=== PATIENT | female | born 1965 | race African-American/Black ===

== ENCOUNTER → 2016-07-12 | Outpatient (CLI) | payer MEDICARE, OTHER ==
--- NOTE | 2016-07-12 17:57 | XR ---
EXAMINATION TYPE: XR elbow complete LT DATE OF EXAM: 07/12/2016 5:52 PM COMPARISON: NONE HISTORY: Elbow pain TECHNIQUE: 3 views FINDINGS: There is spurring on the coronoid process of the ulna. There is no sign of elbow joint effu kathrin. I see no fracture nor dislocation. There is mild spurring on the radial head. IMPRESSION: Mild hypertrophic osteoarthritis. No fracture seen.
--- NOTE | 2016-07-12 18:02 | XR ---
EXAMINATION TYPE: XR knee complete bilateral DATE OF EXAM: 07/12/2016 5:52 PM COMPARISON: NONE HISTORY: Knee pain TECHNIQUE: 6 views FINDINGS: There is bilateral narrowing of the medial joint spaces with spurring of the femoral and ti bial condyles. There is bilateral spurring at the patellofemoral joints and worse on the right side. There is no sign of joint effusion. IMPRESSION: Bilateral hypertrophic osteoarthritis and slightly worse on the right side. No fracture.
== END | disposition home or self-care (01) ==
LOC: RADXRMAIN 17:26
PROVIDERS: ATTEND Internal Medicine
DX: M19.022 Primary osteoarthritis, left elbow (principal); M17.0 Bilateral primary osteoarthritis of knee

== ENCOUNTER → 2016-11-20 | Outpatient (CLI) | payer MEDICARE, OTHER ==
[2016-11-20 14:05] LABS: Hepatitis B Surface Ag Index 0.06
[2016-11-20 14:23] LABS: Hepatitis C Virus IgG Ab Negative (Negative); Hepatitis C Virus IgG Index 0.05
--- NOTE | 2016-11-20 22:51 | WWHP ---
DATE OF SERVICE: 11/20/2016 CHIEF COMPLAINT: Patient is here for her routine gynecologic exam. HPI: This is a 51-year-old G4, P4 with an LMP of 10/23/2016. Periods have been somewhat irregular for the last 2 years. She had about 4 to 5. Last year and has had 2 periods so far this year. She is status post a tubal ligation. She states she is concerned because she had a recent sexual partner who was told he has hepatitis C. She was sexually active on 2 occasions and this was last week. She states that both times the condom either broke or fell off. She has had no other sexual encounters since her separation from her in 07/2016. Her sexual partner from last week was told he tested positive for hepatitis C when he tried to donate plasma recently. She denies any vaginal discharge or genital lesions. She is without gynecologic symptoms. She has been feeling down emotionally because of separation from her and now this possible exposure. She denies any suicidal ideation. PAST MEDICAL HISTORY: Arthritis, and chronic neck problems and anxiety. MEDICATIONS: 1. Xanax 1 mg p.r.n. 2. Percocet t.i.d. p.r.n. 3. Ambien q.h.s. p.r.n. 4. Zantac b.i.d. p.r.n. ALLERGIES: No known drug allergies. Past surgical, [facility], and family histories are unchanged from the 2016 H&P. SOCIAL HISTORY: She denies tobacco, alcohol, and drug use. She was since 2011 and this was her second marriage, but they have in 2017. She is currently not seeing anybody at this time. Please see HPI for additional details. She does not work outside the home. REVIEW OF SYSTEMS: She has gained about 18 pounds and this has been since early this year when she from her . She denies respiratory, cardiac, or GI problems. PHYSICAL EXAM: Blood pressure 118/84. Height 5 feet 8 inches. Weight 232 pounds. Temperature 97.7, pulse 82. This is a well-developed, heavyset black female who is alert and oriented x3 and in no acute distress. HEENT is within normal limits. NECK: Supple without mass or thyromegaly. CHEST AND LUNGS: Clear to auscultation. HEART: Regular rate and rhythm. Breasts are without mass or discharge. Axillary exam is negative for adenopathy. BACK: Negative for CVA tenderness. ABDOMEN: Soft, nontender, without palpable masses. PELVIC EXAM: Normal external genitalia. Cervix and vagina appear normal. There is no unusual discharge. There is no cervical motion tenderness. The uterus is multiparous, nongravid size and nontender. There are no palpable adnexal masses or tenderness. Rectovaginal exam is negative for mass or tenderness and is negative for occult blood. EXTREMITIES: Nontender. IMPRESSION: 1. A 51-year-old perimenopausal female with oligomenorrhea and normal gynecologic exam. 2. Contact with and suspected exposure to sexual partner with hepatitis C. PLAN: 1. Pap smear was performed. 2. Self-breast examination was discussed. 3. The patient will be due for a mammogram in 02/2017 and a slip was given to patient for this. 4. GC and Chlamydia testing from the cervix has been obtained. 5. STDs testing with blood work will be obtained including HIV, RPR, hepatitis B surface antigen and hepatitis C antibody. I have recommended that she repeat this testing in 6 months since it is possible that seroconversion has not occurred yet after exposure at this time. 6. STD prevention was discussed. I stressed the importance of limiting sexual partners and the use of condoms if she is to be sexually active. 7. We will contact dialysis social worker department to have someone contact her regarding her social issues to see if additional counseling would be helpful. 8. She will return in one year and p.r.n.
[2016-11-21 07:38] LABS: HIV-1/HIV-2 Ab Screen NONREAC (NON REAC)
== END | disposition home or self-care (01) ==
LOC: WWCWWP 11:41
PROVIDERS: ATTEND Obstetrics & Gynecology
DX: Z11.3 Encounter for screening for infections with a predominantly sexual mode of transmission (principal); Z20.5 Contact with and (suspected) exposure to viral hepatitis
CPT/HCPCS: 86780; 86803; 87340; 87389; 87491; 87591

== ENCOUNTER → 2017-02-24 | Outpatient (CLI) | payer MEDICARE, OTHER ==
--- NOTE | 2017-02-24 17:27 | XR ---
EXAMINATION TYPE: XR wrist complete RT DATE OF EXAM: 02/24/2017 COMPARISON: NONE HISTORY: Wrist pain TECHNIQUE: 4 views FINDINGS: I see no fracture nor dislocation. Carpal bones are intact. Metacarpals are intact. There i s some calcification at the radial styloid process probably due to old injury. IMPRESSION: No acute abnormality of the right wrist.
== END ==
LOC: RADXRMAIN 17:03
PROVIDERS: ATTEND Internal Medicine
DX: M25.531 Pain in right wrist (principal)

== ENCOUNTER 2017-06-12 08:33 | Emergency (ER) | payer MEDICARE, OTHER ==
[2017-06-12 08:39] VITALS: RESP 16; TEMP 97.1
--- NOTE | 2017-06-12 08:52 | ED ---
General Adult HPI - General Chief complaint: Urogenital Stated complaint: Female Time Seen by Provider: 06/12/17 08:48 Source: patient, RN notes reviewed Mode of arrival: ambulatory Limitations: no limitations - History of Present Illness Initial comments: Patient 52-year-old female who presents emergency room today with a chief complaint of a possible urinary tract infection. Patient does admit that she has noticed some increased frequency and burning sensation on urination over the last 2 days. Does note some pressure over the bladder at times. States his symptoms are consistent with urinary tract infections that she's had in the past. She denies any other complaints or associated symptoms. Patient denies any recent fever, chills, shortness of breath, chest pain, back pain, abdominal pain, nausea or vomiting, numbness or tingling, dysuria or hematuria, headaches or visual changes, or any other complaints. - Related Data Home Medications Medication Instructions Recorded Confirmed Cranberry Fruit Concentrate [Azo 250 mg PO TID 06/12/17 06/12/17 Cranberry] Cranberry Fruit Extract [Cranberry] 200 mg PO DAILY 06/12/17 06/12/17 Ibuprofen [Motrin] 400 mg PO Q6HR PRN 06/12/17 06/12/17 Previous Rx's Medication Instructions Recorded Nitrofurantoin Monohyd/M-Cryst 100 mg PO Q12HR #14 cap 06/12/17 [Macrobid] Phenazopyridine [Pyridium] 100 mg PO TID 3 Days day 06/12/17 Allergies Allergy/AdvReac Type Severity Reaction Status Date / Time No Known Allergies Allergy Verified 06/12/17 08:58 Review of Systems ROS Statement: Those systems with pertinent positive or pertinent negative responses have been documented in the HPI. ROS Other: All systems not noted in ROS Statement are negative. Past Medical History Past Medical History: Chest Pain / Angina, GERD/Reflux, Osteoarthritis (OA) Additional Past Medical History / Comment(s): anxiety restless leg syndrome, STRESS TEST 12-12-14(WNL) History of Any Multi-Drug Resistant Organisms: None Reported Past Surgical History: Appendectomy, Cholecystectomy, Tubal Ligation Past Anesthesia/Blood Transfusion Reactions: No Reported Reaction Past Psychological History: Anxiety Smoking Status: Never smoker Past Alcohol Use History: None Reported Past Drug Use History: None Reported - Past Family History Father Family Medical History: Diabetes Mellitus Additional Family Medical History / Comment(s): HEART DISEASE Mother Family Medical History: Myocardial Infarction ([place]) Additional Family Medical History / Comment(s): FROM [place] AT AGE 45 General Exam - General Exam Comments Initial Comments: General: The patient is awake and alert, in no distress, and does not appear acutely ill. Eye: Pupils are equal, round and reactive to light, extra-ocular movements are intact. No nystagmus. There is normal conjunctiva bilaterally. No signs of icterus. Ears, nose, mouth and throat: There are moist mucous membranes and no oral lesions. Neck: The neck is supple, there is no tenderness or JVD. Cardiovascular: There is a regular rate and rhythm. No murmur, rub or gallop is appreciated. Respiratory: Lungs are clear to auscultation, respirations are non-labored, breath sounds are equal. No wheezes, stridor, rales, or rhonchi. Musculoskeletal: Normal ROM, no tenderness. Strength 5/5. Sensation intact. Pulses equal bilaterally 2+. Neurological: A&O x 3. CN II-XII intact, There are no obvious motor or sensory deficits. Coordination appears grossly intact. Speech is normal. Skin: Skin is warm and dry and no rashes or lesions are noted. Psychiatric: Cooperative, appropriate mood & affect, normal judgment. Limitations: no limitations Course Vital Signs 06/12/17 08:35 Temperature 97.1 F L Pulse Rate 69 Respiratory 16 Rate Blood Pressure 137/77 O2 Sat by Pulse 98 Oximetry Medical Decision Making - Medical Decision Making Patient's urinalysis review does show evidence for urinary tract infection. Given dose of Rocephin here in emergency room. Culture pending. Patient was continued on antibiotics and Pyridium for symptoms. Advised return if there is any fever or chills or increased worsening of symptoms. - Lab Data Lab Results 06/12/17 Range/Units 08:40 Urine Color Dark Yellow Urine Appearance Cloudy H (Clear) Urine pH 5.5 (5.0-8.0) Ur Specific [place] 1.021 (1.001-1.035) Urine Protein Trace H (Negative) Urine Glucose (UA) Trace H (Negative) Urine Ketones Negative (Negative) Urine Blood Negative (Negative) Urine Nitrite Positive H (Negative) Urine Bilirubin Negative (Negative) Urine Urobilinogen <2.0 (<2.0) mg/dL Ur Leukocyte Esterase Moderate H (Negative) Urine WBC 39 H (0-5) /hpf Ur Squamous Epith Cells 1 (0-4) /hpf Urine Bacteria Occasional H (None) /hpf Urine Mucus Rare H (None) /hpf Disposition Clinical Impression: UTI (urinary tract infection) Disposition: HOME SELF-CARE Condition: Good Instructions: Urinary Tract Infection in Women (ED) Additional Instructions: Please use medication as discussed. Please follow-up with family doctor in the next 2 days of symptoms have not improved. Please return to emergency room if the symptoms increase or worsen or for any other concerns. Prescriptions: Nitrofurantoin Monohyd/M-Cryst [Macrobid] 100 mg PO Q12HR #14 cap Phenazopyridine [Pyridium] 100 mg PO TID 3 Days day Referrals: Stewart Beckman MD [Primary Care Provider] - 1-2 days Time of Disposition: 09:47
[2017-06-12 09:23] LABS: Appearance,Urine Cloudy (Clear); Bacteria,Urine Occasional /hpf; Bilirubin,Urine Negative (Negative); Glucose,Urine (UA) Trace (Negative); Ketones,Urine Negative (Negative); Leukocyte Esterase,Urine Moderate (Negative); Mucus,Urine Rare /hpf; Nitrite,Urine Positive (Negative); PH, Urine 5.5 (5.0-8.0); Particle Count 29457; Protein,Urine Trace (Negative); Specific Gravity,Urine 1.021 (1.001-1.035); Squamous Epithelial Cell,Urine 1 /hpf (0-4); UA Billing (MACRO vs. MICRO) MICRO; Urobilinogen,Urine <2.0 mg/dL (<2.0); WBC,Urine 39 /hpf (0-5)
[2017-06-12] MEDS ORDERED: cefTRIAXone 1,000 MG VIAL (IM USE) IM STA (09:46)
[2017-06-12 10:11] VITALS: BP 142/84; PULSE 71
== END 2017-06-12 10:11 | disposition home or self-care (01) ==
LOC: EC 08:33
DX: N39.0 Urinary tract infection, site not specified (principal); Z79.899 Other long term (current) drug therapy
CPT/HCPCS: 81001; 87086; 99283; 96372; J0696; 87077; 87186

== ENCOUNTER 2017-07-13 20:42 | Emergency (ER) | payer MEDICARE, OTHER ==
[2017-07-13] MEDS ORDERED: KETOROLAC 30 MG/ML 1 ML VIAL IVP STA ×2 (22:07→23:17)
--- NOTE | 2017-07-13 22:11 | ED ---
Chest Pain HPI - General Chief Complaint: Chest Pain Stated Complaint: chest & leg pain/SOB Time Seen by Provider: 07/13/17 21:05 Source: patient, RN notes reviewed Mode of arrival: wheelchair Limitations: no limitations - History of Present Illness Initial Comments: This is a 52-year-old female with no personal history of heart disease with family history of heart disease who presents with complaints of midsternal chest pain sharp and feels like someone sitting on her chest also a racing heart of last 3 days. She denies a fevers chills nausea vomiting or sweats she does states she is under a lot of stress as her 60-year-old sister is on a heart transplant list. She also states she's had previous admissions for heart disease and has had an extensive workup which was negative thus far. She does believe she had a cardiac catheterization that was negative. Patient also states her restless leg syndrome has been taking it recently. MD Complaint: chest pain, other - Related Data Home Medications Medication Instructions Recorded Confirmed ALPRAZolam [Xanax] 1 mg PO DAILY PRN 07/13/17 07/13/17 oxyCODONE-APAP 10-325MG [Percocet 1 tab PO DAILY PRN 07/13/17 07/13/17 10-325 mg] Previous Rx's Medication Instructions Recorded ALPRAZolam [Xanax] 1 mg PO DAILY PRN #7 tab 07/13/17 Magnesium 200 mg PO DAILY #14 tablet 07/13/17 oxyCODONE-APAP 10-325MG [Percocet 1 tab PO Q6HR PRN #10 tab 07/13/17 10-325 mg] Allergies Allergy/AdvReac Type Severity Reaction Status Date / Time No Known Allergies Allergy Verified 07/13/17 22:21 Review of Systems ROS Statement: Those systems with pertinent positive or pertinent negative responses have been documented in the HPI. ROS Other: All systems not noted in ROS Statement are negative. EKG Findings - EKG Results: EKG: interpreted by VICKIE, sinus rhythm (Sinus rhythm rate 93. Interval 174 QRS duration 90 QT since QTC of 362/[address] configuration this is compared with EKG dated 04/10/16 showing no acute changes) Past Medical History Past Medical History: Chest Pain / Angina, GERD/Reflux, Osteoarthritis (OA) Additional Past Medical History / Comment(s): anxiety restless leg syndrome, STRESS TEST 6-29-15(WNL) History of Any Multi-Drug Resistant Organisms: None Reported Past Surgical History: Appendectomy, Cholecystectomy, Tubal Ligation Past Anesthesia/Blood Transfusion Reactions: No Reported Reaction Past Psychological History: Anxiety Smoking Status: Never smoker Past Alcohol Use History: None Reported Past Drug Use History: None Reported - Past Family History Father Family Medical History: Diabetes Mellitus Additional Family Medical History / Comment(s): HEART DISEASE Mother Family Medical History: Myocardial Infarction ([place]) Additional Family Medical History / Comment(s): FROM [place] AT AGE 45 General Exam - General Exam Comments Initial Comments: This a well-developed well-nourished awake alert oriented 3 female Limitations: no limitations General appearance: alert, anxious Head exam: Present: atraumatic, normocephalic, normal inspection Eye exam: Present: normal appearance, PERRL, EOMI. Absent: scleral icterus, conjunctival injection, periorbital swelling ENT exam: Present: normal exam, mucous membranes moist Neck exam: Present: normal inspection. Absent: tenderness, meningismus, lymphadenopathy Respiratory exam: Present: normal lung sounds bilaterally, chest wall tenderness (Reproducible tenderness palpation). Absent: respiratory distress, wheezes, rales, rhonchi, stridor Cardiovascular Exam: Present: regular rate, normal rhythm, normal heart sounds. Absent: systolic murmur, diastolic murmur, rubs, gallop, clicks GI/Abdominal exam: Present: soft, normal bowel sounds. Absent: distended, tenderness, guarding, rebound, rigid Extremities exam: Present: normal inspection, full ROM, normal capillary refill. Absent: tenderness, pedal edema, joint swelling, calf tenderness Back exam: Present: normal inspection Neurological exam: Present: alert, oriented X3, CN II-XII intact Psychiatric exam: Present: normal affect, normal mood Skin exam: Present: warm, dry, intact, normal color. Absent: rash Course Vital Signs 07/13/17 07/13/17 07/13/17 20:51 21:59 22:20 Temperature 97.7 F Pulse Rate 93 85 Pulse Rate [ 80 Ob Scrub Tech ] Respiratory 18 18 Rate Blood Pressure 165/78 137/74 O2 Sat by Pulse 94 L 98 Oximetry 07/13/17 23:15 Temperature Pulse Rate 84 Pulse Rate [ Ob Scrub Tech ] Respiratory 20 Rate Blood Pressure 115/57 O2 Sat by Pulse 97 Oximetry - Reevaluation(s) Reevaluation #1: 07/13/17 23:50 Patient did get some relief from the medication I'll she saw some pain. The pain is reproducible. Further managed patient been under increased due to separation from her she states did recently moved back to this area and does not have a local doctor. Chest Pain MDM - MDM I did review the imaging and reports no acute findings. I don't discussed with the patient regarding the findings patient's presentation is consistent with costochondritis and anxiety. I will write a short course prescription of her previous medications for her. She is a follow-up through her insurance company to find a doctor in the area she is return when necessary Disposition Clinical Impression: Chest wall syndrome, Costalchondritis, Anxiety, Hypomagnesemia Disposition: HOME SELF-CARE Condition: Good Instructions: Costochondritis (ED), Anxiety (ED), Hypomagnesemia (ED) Prescriptions: ALPRAZolam [Xanax] 1 mg PO DAILY PRN #7 tab PRN Reason: Anxiety Magnesium 200 mg PO DAILY #14 tablet oxyCODONE-APAP 10-325MG [Percocet 10-325 mg] 1 tab PO Q6HR PRN #10 tab PRN Reason: Pain Referrals: None,Stated [Primary Care Provider] - 1-2 days Nayeli Tanner MD [STAFF PHYSICIAN] - 1-2 days
[2017-07-13 22:21] LABS: Basophils % (A) 1 %; Eosinophils # (A) 0.1 k/uL (0-0.7); Eosinophils % (A) 2 %; HCT 39.8 % (34.0-46.0); HGB 12.7 gm/dL (11.4-16.0); Lymphocytes # (A) 2.8 k/uL (1.0-4.8); Lymphocytes % (A) 49 %; MCH 27.3 pg (25.0-35.0); MCHC 31.8 g/dL (31.0-37.0); MCV 85.9 fL (80.0-100.0); Mean Platelet Volume 7.8; Monocytes # (A) 0.5 k/uL (0-1.0); Monocytes % (A) 8 %; Neutrophils # (A) 2.2 k/uL (1.3-7.7); Neutrophils % (A) 38 %; Platelet Count 276 k/uL (150-450); RBC 4.64 m/uL (3.80-5.40); RDW 13.4 % (11.5-15.5); WBC 5.8 k/uL (3.8-10.6)
[2017-07-13 22:31] LABS: D-Dimer 0.32 mg/L FEU (<0.60)
[2017-07-13 22:35] LABS: Partial Thromboplastin Time 23.8 sec (22.0-30.0); Prothrombin Time 9.8 sec (9.0-12.0)
[2017-07-13 22:38] LABS: ALT 22 U/L (9-52); AST 19 U/L (14-36); Albumin 4.1 g/dL (3.5-5.0); Alkaline Phosphatase 80 U/L (38-126); Anion Gap 11 mmol/L; Blood Urea Nitrogen 20 mg/dL (7-17); Calcium 10.1 mg/dL (8.4-10.2); Carbon Dioxide 24 mmol/L (22-30); Chloride 106 mmol/L (98-107); Creatine Kinase 317 U/L (30-135); Glucose 189 mg/dL (74-99); Magnesium 1.5 mg/dL (1.6-2.3); Sodium 141 mmol/L (137-145); Total Bilirubin 0.1 mg/dL (0.2-1.3); Total Protein 7.2 g/dL (6.3-8.2)
--- NOTE | 2017-07-13 22:43 | XR ---
EXAMINATION TYPE: XR chest 2V DATE OF EXAM: 07/13/2017 COMPARISON: 04/09/2016 HISTORY: Chest pain TECHNIQUE: Frontal and lateral views of the chest are obtained. FINDINGS: There is some patchy linear density in the mid and lower lung gonzalez. Heart and mediastinu m are within normal limits. There is no sign of pleural effusion. Bony thorax is intact. IMPRESSION: There is chronic linear density in the lower lung gonzalez consistent with scarring and at electasis without change compared to old exam.
[2017-07-13 22:49] LABS: Creatine Kinase MB 0.7 ng/mL (0.0-2.4); Troponin I <0.012 ng/mL (0.000-0.034)
[2017-07-14 00:17] VITALS: BP 118/60; PULSE 88; RESP 18; TEMP 97.1
== END 2017-07-14 00:17 | disposition home or self-care (01) ==
LOC: EC 20:42
DX: M94.0 Chondrocostal junction syndrome [Tietze] (principal); E83.42 Hypomagnesemia; F41.9 Anxiety disorder, unspecified; G25.81 Restless legs syndrome; Z82.49 Family history of ischemic heart disease and other diseases of the circulatory system
CPT/HCPCS: 36415; 93005; 85379; 83880; 80053; 82550; 82553; 83735; 84484; 85025; 85610; 85730; 71046; 99285; 96374; 96376; J1885

== ENCOUNTER 2017-09-29 09:05 | Emergency (ER) | payer MEDICARE, OTHER ==
[2017-09-29 09:13] VITALS: RESP 18; TEMP 97.6
[2017-09-29] MEDS ORDERED: SODIUM CHLORIDE 0.9% 1,000 ML IV STA (09:29)
[2017-09-29] MEDS ORDERED: methylPREDNISolone SOD SUCCI 125 MG/2 ML VIAL IV STA (09:29)
[2017-09-29] MEDS ORDERED: IPRATROPIUM-ALBUTEROL 3 ML NEB INHALATION STA (09:29)
--- NOTE | 2017-09-29 09:31 | ED ---
URI HPI - General Chief Complaint: Upper Respiratory Infection Stated Complaint: Cough Time Seen by Provider: 09/29/17 09:22 Source: patient, RN notes reviewed, old records reviewed Mode of arrival: ambulatory Limitations: no limitations - History of Present Illness Initial Comments: Patient is a 52-year-old [employer] chief complaint of cough and upper respiratory congestion for 1 month. She reports that she's had a dry cough for the past week. She also complains of some chest pain. Not reproducible palpation. She reports that she has a family history of heart disease but no specific history for herself. Patient states that she has no nausea or vomiting or diaphoresis. She reports that she has a sore throat related to her coughing.Patient denies any recent fever, chills, shortness of breath, chest pain, back pain, abdominal pain, nausea vomiting, numbness or tingling, dysuria or hematuria, constipation or diarrhea, headaches or visual changes, or any other current symptoms - Related Data Home Medications Medication Instructions Recorded Confirmed Ranitidine HCl [Zantac] 75 mg PO BID 09/29/17 09/29/17 guaiFENesin SYRUP 100MG/5ML 200 mg PO Q6H PRN 09/29/17 09/29/17 [Robitussin] Previous Rx's Medication Instructions Recorded Albuterol Inhaler [Ventolin Hfa 1 - 2 puff INHALATION Q6HR PRN #1 09/29/17 Inhaler] inhaler Azithromycin 250 mg PO DAILY #6 tablet 09/29/17 predniSONE 50 mg PO DAILY #5 tablet 09/29/17 Allergies Allergy/AdvReac Type Severity Reaction Status Date / Time No Known Allergies Allergy Verified 09/29/17 09:23 Review of Systems ROS Statement: Those systems with pertinent positive or pertinent negative responses have been documented in the HPI. ROS Other: All systems not noted in ROS Statement are negative. Past Medical History Past Medical History: Chest Pain / Angina, GERD/Reflux, Osteoarthritis (OA) Additional Past Medical History / Comment(s): anxiety restless leg syndrome, STRESS TEST 12-12-14(WNL) History of Any Multi-Drug Resistant Organisms: None Reported Past Surgical History: Appendectomy, Cholecystectomy, Tubal Ligation Past Anesthesia/Blood Transfusion Reactions: No Reported Reaction Past Psychological History: Anxiety Smoking Status: Never smoker Past Alcohol Use History: None Reported Past Drug Use History: None Reported - Past Family History Father Family Medical History: Diabetes Mellitus Additional Family Medical History / Comment(s): HEART DISEASE Mother Family Medical History: Myocardial Infarction ([place]) Additional Family Medical History / Comment(s): FROM [place] AT AGE 45 General Exam - General Exam Comments Initial Comments: 52-year-old female. Alert and oriented. No distress. Limitations: no limitations General appearance: alert, in no apparent distress Head exam: Present: atraumatic, normocephalic, normal inspection Eye exam: Present: normal appearance, PERRL, EOMI. Absent: scleral icterus, conjunctival injection, periorbital swelling ENT exam: Present: normal exam, mucous membranes moist Neck exam: Present: normal inspection. Absent: tenderness, meningismus, lymphadenopathy Respiratory exam: Present: normal lung sounds bilaterally, other (dry cough). Absent: respiratory distress, wheezes, rales, rhonchi, stridor Cardiovascular Exam: Present: regular rate, normal rhythm, normal heart sounds. Absent: systolic murmur, diastolic murmur, rubs, gallop, clicks Back exam: Present: normal inspection Neurological exam: Present: alert, oriented X3, CN II-XII intact Psychiatric exam: Present: normal affect, normal mood Course Vital Signs 09/29/17 09/29/17 09/29/17 09:11 09:45 09:55 Temperature 97.6 F Pulse Rate 76 70 70 Respiratory 18 18 Rate Blood Pressure 134/88 O2 Sat by Pulse 98 Oximetry 09/29/17 11:52 Temperature 97.6 F Pulse Rate 68 Respiratory 18 Rate Blood Pressure 140/80 O2 Sat by Pulse 97 Oximetry Medical Decision Making - Medical Decision Making Patient is a 52-year-old [employer] chief complaint of cough and upper respiratory congestion for 1 month. She reports that she's had a dry cough for the past week. She also complains of some chest pain. Not reproducible palpation. She reports that she has a family history of heart disease but no specific history for herself. Patient states that she has no nausea or vomiting or diaphoresis. She reports that she has a sore throat related to her coughing. Patient was given IV fluids and labs obtaiend. She has a dry cough, minor wheezing noted. Given breathing treatment and cardiac work up. EKG is normal, no acute changes. Negative troponin. Vitals are stable. CXR was within normal limitis. She feels better after treatment. Given IV solumedrol. Will treat patient for bronchitis with steriods, azithromycin, and inhaler. Dsicussed PCP follow up. - Lab Data Result diagrams: 09/29/17 10:12 09/29/17 10:12 Lab Results 09/29/17 09/29/17 09/29/17 Range/Units 10:12 10:12 10:12 WBC 8.1 (3.8-10.6) k/uL RBC 4.88 (3.80-5.40) m/uL Hgb 13.0 (11.4-16.0) gm/dL Hct 40.3 (34.0-46.0) % MCV 82.7 (80.0-100.0) fL MCH 26.7 (25.0-35.0) pg MCHC 32.2 (31.0-37.0) g/dL RDW 14.1 (11.5-15.5) % Plt Count 367 (150-450) k/uL Neutrophils % 47 % Lymphocytes % 42 % Monocytes % 6 % Eosinophils % 2 % Basophils % 0 % Neutrophils # 3.8 (1.3-7.7) k/uL Lymphocytes # 3.4 (1.0-4.8) k/uL Monocytes # 0.5 (0-1.0) k/uL Eosinophils # 0.2 (0-0.7) k/uL Basophils # 0.0 (0-0.2) k/uL PT (9.0-12.0) sec INR (<1.2) APTT (22.0-30.0) sec Sodium 145 (137-145) mmol/L Potassium 3.7 (3.5-5.1) mmol/L Chloride 106 (98-107) mmol/L Carbon Dioxide 22 (22-30) mmol/L Anion Gap 17 mmol/L BUN 17 (7-17) mg/dL Creatinine 1.00 (0.52-1.04) mg/dL Est GFR (CKD-EPI)AfAm 74 (>60 ml/min/1.73 sqM) Est GFR (CKD-EPI)NonAf 64 (>60 ml/min/1.73 sqM) Glucose 136 H (74-99) mg/dL Calcium 9.8 (8.4-10.2) mg/dL Magnesium 1.7 (1.6-2.3) mg/dL Total Bilirubin 0.3 (0.2-1.3) mg/dL AST 17 (14-36) U/L ALT 28 (9-52) U/L Alkaline Phosphatase 90 (38-126) U/L Total Creatine Kinase 289 H (30-135) U/L CK-MB (CK-2) 0.7 (0.0-2.4) ng/mL CK-MB (CK-2) Rel Index 0.2 Troponin I <0.012 (0.000-0.034) ng/mL Total Protein 7.9 (6.3-8.2) g/dL Albumin 4.3 (3.5-5.0) g/dL Urine Color Urine Appearance (Clear) Urine pH (5.0-8.0) Ur Specific Clubb (1.001-1.035) Urine Protein (Negative) Urine Glucose (UA) (Negative) Urine Ketones (Negative) Urine Blood (Negative) Urine Nitrite (Negative) Urine Bilirubin (Negative) Urine Urobilinogen (<2.0) mg/dL Ur Leukocyte Esterase (Negative) 09/29/17 09/29/17 Range/Units 10:12 10:17 WBC (3.8-10.6) k/uL RBC (3.80-5.40) m/uL Hgb (11.4-16.0) gm/dL Hct (34.0-46.0) % MCV (80.0-100.0) fL MCH (25.0-35.0) pg MCHC (31.0-37.0) g/dL RDW (11.5-15.5) % Plt Count (150-450) k/uL Neutrophils % % Lymphocytes % % Monocytes % % Eosinophils % % Basophils % % Neutrophils # (1.3-7.7) k/uL Lymphocytes # (1.0-4.8) k/uL Monocytes # (0-1.0) k/uL Eosinophils # (0-0.7) k/uL Basophils # (0-0.2) k/uL PT 10.3 (9.0-12.0) sec INR 1.0 (<1.2) APTT 24.0 (22.0-30.0) sec Sodium (137-145) mmol/L Potassium (3.5-5.1) mmol/L Chloride (98-107) mmol/L Carbon Dioxide (22-30) mmol/L Anion Gap mmol/L BUN (7-17) mg/dL Creatinine (0.52-1.04) mg/dL Est GFR (CKD-EPI)AfAm (>60 ml/min/1.73 sqM) Est GFR (CKD-EPI)NonAf (>60 ml/min/1.73 sqM) Glucose (74-99) mg/dL Calcium (8.4-10.2) mg/dL Magnesium (1.6-2.3) mg/dL Total Bilirubin (0.2-1.3) mg/dL AST (14-36) U/L ALT (9-52) U/L Alkaline Phosphatase (38-126) U/L Total Creatine Kinase (30-135) U/L CK-MB (CK-2) (0.0-2.4) ng/mL CK-MB (CK-2) Rel Index Troponin I (0.000-0.034) ng/mL Total Protein (6.3-8.2) g/dL Albumin (3.5-5.0) g/dL Urine Color Yellow Urine Appearance Clear (Clear) Urine pH 5.5 (5.0-8.0) Ur Specific Clubb 1.017 (1.001-1.035) Urine Protein Negative (Negative) Urine Glucose (UA) Negative (Negative) Urine Ketones Negative (Negative) Urine Blood Negative (Negative) Urine Nitrite Negative (Negative) Urine Bilirubin Negative (Negative) Urine Urobilinogen <2.0 (<2.0) mg/dL Ur Leukocyte Esterase Negative (Negative) 09/29/17 10:24 EKG performed today shows normal sinus rhythm, normal EKG noted. Ventricular rate of 60 bpm. UT interval 164 ms. QRS duration 96 ms. QT QTc is 09/19/2005/ 431 ms. No evidence of ST elevation or T-wave inversion. Nodes of atrial or ventricular arrhythmias. EKG shows no significant changes from EKG on 2017. - Radiology Data Radiology results: report reviewed Stable bands of scarring and atelectasis. No acute changes noted. Disposition Clinical Impression: Bronchitis Disposition: HOME SELF-CARE Condition: Good Instructions: Upper Respiratory Infection (ED) Prescriptions: Albuterol Inhaler [Ventolin Hfa Inhaler] 1 - 2 puff INHALATION Q6HR PRN #1 inhaler PRN Reason: Shortness Of Breath Azithromycin 250 mg PO DAILY #6 tablet predniSONE 50 mg PO DAILY #5 tablet Is patient prescribed a controlled substance at discharge?: No If prescribed controlled substance>3 days was MAPS reviewed?: No When asked, does pt state using other controlled substances?: No Referrals: Nayeli Tanner MD [Primary Care Provider] - 1-2 days Time of Disposition: 10:43
[2017-09-29 10:34] LABS: Appearance,Urine Clear (Clear); Bilirubin,Urine Negative (Negative); Blood,Urine Negative (Negative); Color,Urine Yellow; Glucose,Urine (UA) Negative (Negative); Ketones,Urine Negative (Negative); Leukocyte Esterase,Urine Negative (Negative); Nitrite,Urine Negative (Negative); PH, Urine 5.5 (5.0-8.0); Protein,Urine Negative (Negative); Specific Gravity,Urine 1.017 (1.001-1.035); Urobilinogen,Urine <2.0 mg/dL (<2.0)
[2017-09-29 10:34] LABS: Basophils % (A) 0 %; Eosinophils # (A) 0.2 k/uL (0-0.7); Eosinophils % (A) 2 %; HCT 40.3 % (34.0-46.0); Lymphocytes # (A) 3.4 k/uL (1.0-4.8); Lymphocytes % (A) 42 %; MCH 26.7 pg (25.0-35.0); MCHC 32.2 g/dL (31.0-37.0); MCV 82.7 fL (80.0-100.0); Mean Platelet Volume 7.4; Monocytes # (A) 0.5 k/uL (0-1.0); Monocytes % (A) 6 %; Neutrophils # (A) 3.8 k/uL (1.3-7.7); Neutrophils % (A) 47 %; Platelet Count 367 k/uL (150-450); RBC 4.88 m/uL (3.80-5.40); RDW 14.1 % (11.5-15.5); WBC 8.1 k/uL (3.8-10.6)
[2017-09-29 10:35] LABS: Albumin 4.3 g/dL (3.5-5.0); Calcium 9.8 mg/dL (8.4-10.2); Magnesium 1.7 mg/dL (1.6-2.3); Potassium 3.7 mmol/L (3.5-5.1); Total Bilirubin 0.3 mg/dL (0.2-1.3); Total Protein 7.9 g/dL (6.3-8.2)
[2017-09-29 10:38] LABS: Prothrombin Time 10.3 sec (9.0-12.0)
[2017-09-29 10:53] LABS: Creatine Kinase 289 U/L (30-135)
--- NOTE | 2017-09-29 10:56 | XR ---
EXAMINATION TYPE: XR chest 2V DATE OF EXAM: 09/29/2017 COMPARISON: 07/13/2017 HISTORY: 52-year-old female difficulty breathing TECHNIQUE: PA and lateral views FINDINGS: Heart normal size. Mild elongation thoracic aorta. Similar strands of opacity in the lower lungs. Mil d interstitial prominence unchanged. Cholecystectomy clips. No consolidation or pleural effusion. IMPRESSION: 1. Stable bands of scar in the lower lungs. 2. Chronic changes without acute cardiopulmonary process.
[2017-09-29 11:06] LABS: Creatine Kinase MB 0.7 ng/mL (0.0-2.4); Troponin I <0.012 ng/mL (0.000-0.034)
[2017-09-29 11:53] VITALS: BP 140/80; PULSE 68
== END 2017-09-29 11:53 | disposition home or self-care (01) ==
LOC: EC 09:05
DX: J40 Bronchitis, not specified as acute or chronic (principal); J98.11 Atelectasis; R91.8 Other nonspecific abnormal finding of lung field; J02.9 Acute pharyngitis, unspecified; K21.9 Gastro-esophageal reflux disease without esophagitis; Z79.899 Other long term (current) drug therapy; Z82.49 Family history of ischemic heart disease and other diseases of the circulatory system
CPT/HCPCS: 36415; 94640; 93005; 80053; 82550; 82553; 83735; 84484; 85025; 85610; 85730; 81003; 87040; 71046; 99284; 96374; 96361; J2930

== ENCOUNTER 2017-10-08 08:56 | Emergency (ER) | payer MEDICARE, OTHER ==
[2017-10-08 09:07] VITALS: RESP 16
--- NOTE | 2017-10-08 09:28 | ED ---
Lower Extremity Injury HPI - General Chief Complaint: Extremity Injury, Lower Stated Complaint: LEFT LEG PAIN Time Seen by Provider: 10/08/17 09:13 Source: patient, RN notes reviewed Mode of arrival: wheelchair Limitations: no limitations - History of Present Illness Initial Comments: This is a 52-year-old female presents emergency Department with complaint of left eye pain. She states she woke up this pain. She states she prior to going to sleep and she denies any injury or trauma. she denies any leg swelling no back pain. she states the pain is only in her upper leg does not radiate anywhere else. patient denies any bowel bladder incontinence or retention. denies any leg swelling denies any discoloration. patient has no paresthesias. patient has not taken any tylenol motrin for pain. patient states she's never had any like this in the past. - Related Data Home Medications Medication Instructions Recorded Confirmed Ranitidine HCl [Zantac] 75 mg PO BID 09/29/17 10/08/17 Previous Rx's Medication Instructions Recorded Ibuprofen [Motrin] 600 mg PO Q8HR PRN #30 tab 10/08/17 Allergies Allergy/AdvReac Type Severity Reaction Status Date / Time No Known Allergies Allergy Verified 10/08/17 09:54 Review of Systems ROS Statement: Those systems with pertinent positive or pertinent negative responses have been documented in the HPI. ROS Other: All systems not noted in ROS Statement are negative. Past Medical History Past Medical History: Chest Pain / Angina, GERD/Reflux, Osteoarthritis (OA) Additional Past Medical History / Comment(s): anxiety restless leg syndrome, STRESS TEST 12-12-14(WNL) History of Any Multi-Drug Resistant Organisms: None Reported Past Surgical History: Appendectomy, Cholecystectomy, Tubal Ligation Past Anesthesia/Blood Transfusion Reactions: No Reported Reaction Past Psychological History: Anxiety, Depression Smoking Status: Never smoker Past Alcohol Use History: None Reported Past Drug Use History: None Reported - Past Family History Father Family Medical History: Diabetes Mellitus Additional Family Medical History / Comment(s): HEART DISEASE Mother Family Medical History: Myocardial Infarction ([place]) Additional Family Medical History / Comment(s): FROM [place] AT AGE 45 General Exam Limitations: no limitations General appearance: alert, in no apparent distress Head exam: Present: atraumatic, normocephalic, normal inspection Respiratory exam: Present: normal lung sounds bilaterally. Absent: respiratory distress, wheezes, rales, rhonchi, stridor Cardiovascular Exam: Present: regular rate, normal rhythm, normal heart sounds. Absent: systolic murmur, diastolic murmur, rubs, gallop, clicks Extremities exam: Present: other (Left thigh there is mild tenderness with palpation leg is neurovascularly intact with equal pedal pulses there is equal temperature of both legs, there is no pain in the leg or groin, there is no tenderness in both buttocks region) Back exam: Present: full ROM. Absent: tenderness, paraspinal tenderness, vertebral tenderness Neurological exam: Present: alert, oriented X3, CN II-XII intact, reflexes normal. Absent: motor sensory deficit Skin exam: Present: warm, dry, intact, normal color. Absent: rash Course Vital Signs 10/08/17 09:04 Temperature 97 F L Pulse Rate 83 Respiratory 16 Rate Blood Pressure 125/68 O2 Sat by Pulse 98 Oximetry Medical Decision Making - Medical Decision Making 52-year-old female presented to the ER for left leg pain. Patient had nontraumatic pain. Patient symptoms are slightly reproducible. Patient has no vascular issues he has pedal pulses equal bilaterally ultrasound was performed negative for DVT. X-ray shows arthritis of the left hip. Patient's pain is most likely related to a strain or muscle skeletal pain. Patient will be given ibuprofen and discharged. Disposition Clinical Impression: Leg strain Disposition: HOME SELF-CARE Condition: Stable Instructions: Leg Pain (ED) Additional Instructions: Please return to the Emergency Department if symptoms worsen or any other concerns. Prescriptions: Ibuprofen [Motrin] 600 mg PO Q8HR PRN #30 tab PRN Reason: Pain Is patient prescribed a controlled substance at d/c from ED?: No Referrals: Nayeli Tanner MD [Primary Care Provider] - 1-2 days Danish Foley MD [STAFF PHYSICIAN] - 1-2 days Time of Disposition: 10:49
--- NOTE | 2017-10-08 09:34 | XR ---
EXAMINATION TYPE: XR femur LT DATE OF EXAM: 10/08/2017 CLINICAL HISTORY: Pain TECHNIQUE: Two views of the left femur are obtained. COMPARISON: None FINDINGS: There is mild concentric narrowing of the hip joint with hypertrophic change along the mónica tabulum. Arthropathy of the knee joint with hypertrophic changes and narrowing of the joint space. Mo st marked findings involving the medial compartment. No acute fracture or dislocation. IMPRESSION: 1. Arthropathy with no definite acute fracture. Correlate for femoral acetabular impingement.
--- NOTE | 2017-10-08 10:42 | US ---
EXAMINATION TYPE: US venous doppler duplex LE LT DATE OF EXAM: 10/08/2017 10:37 AM COMPARISON: NONE CLINICAL HISTORY: Pain. Left leg pain x 1 day SIDE PERFORMED: Left TECHNIQUE: The lower extremity deep venous system is examined utilizing real time linear array sonog maxine with graded compression, doppler sonography and color-flow sonography. VESSELS IMAGED: External Iliac Vein (EIV) Common Femoral Vein Deep Femoral Vein Greater Saphenous Vein * Femoral Vein Popliteal Vein Small Saphenous Vein * Proximal Calf Veins (* superficial vessels) Difficult study due to patient body habitus Left Leg: Appears negative for DVT Grayscale, color doppler, spectral doppler imaging performed of the deep veins of the left lower extr emity. There is normal flow, compressibility, vascular waveforms. IMPRESSION: No sonographic evidence of deep venous thrombosis within the left lower extremity. Of no te the casing man describes a difficult examination due to patient body habitus.
[2017-10-08] MEDS ORDERED: KETOROLAC 60 MG/2 ML VIAL IM STA (10:51)
[2017-10-08 11:01] VITALS: BP 154/85; PULSE 68; TEMP 97.1
== END 2017-10-08 11:01 | disposition home or self-care (01) ==
LOC: EC 08:56
DX: S76.912A Strain of unspecified muscles, fascia and tendons at thigh level, left thigh, initial encounter (principal); M16.12 Unilateral primary osteoarthritis, left hip; K21.9 Gastro-esophageal reflux disease without esophagitis; Z79.899 Other long term (current) drug therapy
CPT/HCPCS: 73552; 93971; 99284; 96372; J1885

== ENCOUNTER 2017-11-02 09:52 | Observation (INO) | payer MEDICARE, OTHER ==
[2017-11-02] MEDS ORDERED: SODIUM CHLORIDE 0.9% 1,000 ML IV STA ×2 (10:13)
[2017-11-02] MEDS ORDERED: LORazepam 1 MG TAB PO STA (10:13)
--- NOTE | 2017-11-02 10:19 | ED ---
Chest Pain HPI <Power Carroll - Last Filed: 11/02/17 12:49> - General Source: patient, RN notes reviewed, old records reviewed Mode of arrival: wheelchair Limitations: no limitations <Angelina Ferris - Last Filed: 11/02/17 12:56> - General Chief Complaint: Chest Pain Stated Complaint: Chest Pain Time Seen by Provider: 11/02/17 10:01 - History of Present Illness Initial Comments: this patient's a 52-year-old female presents emergency department today chief complaint of chest pain and stress of breath for the past 2 days. Patient reports that she has been evaluated in the past and was told that her symptoms are related to anxiety. No history of high blood pressure diabetes. Nonsmoker. She also complains of leg pain. She states is worse at night. She states that she feels like she has been under increased stress due to her leg pain tonight and noncontributory anxiety. Patient states that it feels like she cannot sleep well at [place]'s has to move her legs. Denies any swelling or trauma to the legs. She did have a ultrasound completed one month ago for similar complaints of pain. That was negative for DVT. Patient states that she feels anxious. She reports she has felt nauseated and sweaty. (Angelina Ferris) - Related Data Home Medications Medication Instructions Recorded Confirmed Ranitidine HCl [Zantac] 75 mg PO BID 09/29/17 10/08/17 Previous Rx's Medication Instructions Recorded Ibuprofen [Motrin] 600 mg PO Q8HR PRN #30 tab 10/08/17 Allergies Allergy/AdvReac Type Severity Reaction Status Date / Time No Known Allergies Allergy Verified 11/02/17 09:56 Review of Systems ROS Other: All systems not noted in ROS Statement are negative. <Power Carroll - Last Filed: 11/02/17 12:49> ROS Other: All systems not noted in ROS Statement are negative. <Angelina Ferris - Last Filed: 11/02/17 12:56> ROS Statement: Those systems with pertinent positive or pertinent negative responses have been documented in the HPI. EKG Findings - EKG Comments: EKG Findings:: EKG performed at 1002 shows normal sinus rhythm, normal EKG. Ventricular rate of 75 beats were minute. IA interval is 160 ms. QRS duration 92 ms. QT QTc is 398/444 ms. No evidence of ST elevation or T-wave inversion. <Angelina Ferris - Last Filed: 11/02/17 12:56> Past Medical History Past Medical History: Chest Pain / Angina, GERD/Reflux, Osteoarthritis (OA) Additional Past Medical History / Comment(s): anxiety restless leg syndrome, STRESS TEST 629-15(WNL) History of Any Multi-Drug Resistant Organisms: None Reported Past Surgical History: Appendectomy, Cholecystectomy, Tubal Ligation Past Anesthesia/Blood Transfusion Reactions: No Reported Reaction Past Psychological History: Anxiety, Depression Smoking Status: Never smoker Past Alcohol Use History: None Reported Past Drug Use History: None Reported - Past Family History Father Family Medical History: Diabetes Mellitus Additional Family Medical History / Comment(s): HEART DISEASE Mother Family Medical History: Myocardial Infarction ([place]) Additional Family Medical History / Comment(s): FROM [place] AT AGE 45 <Angelina Ferris - Last Filed: 11/02/17 12:56> General Exam <Power Carroll - Last Filed: 11/02/17 12:49> Limitations: no limitations General appearance: alert Head exam: Present: atraumatic, normocephalic, normal inspection Eye exam: Present: normal appearance, PERRL, EOMI. Absent: scleral icterus, conjunctival injection, periorbital swelling ENT exam: Present: normal exam, mucous membranes moist Neck exam: Present: normal inspection. Absent: tenderness, meningismus, lymphadenopathy Respiratory exam: Present: normal lung sounds bilaterally. Absent: respiratory distress, wheezes, rales, rhonchi, stridor Cardiovascular Exam: Present: regular rate, normal rhythm, normal heart sounds. Absent: systolic murmur, diastolic murmur, rubs, gallop, clicks GI/Abdominal exam: Present: soft, normal bowel sounds. Absent: distended, tenderness, guarding, rebound, rigid Extremities exam: Present: normal inspection, full ROM, normal capillary refill , other (normal pulses and dorsalis pedis and posterior tibial. No swelling of the legs. Full range of motion noted.). Absent: tenderness, pedal edema, joint swelling, calf tenderness Back exam: Present: normal inspection Neurological exam: Present: alert, oriented X3, CN II-XII intact <Angelina Ferris - Last Filed: 11/02/17 12:56> - General Exam Comments Initial Comments: 52-year-old -[place] female. Patient is well-appearing. Alert and oriented. No acute distress. (Angelina Ferris) Course <Power Carroll - Last Filed: 11/02/17 12:49> <Angelina Ferris - Last Filed: 11/02/17 12:56> Vital Signs 11/02/17 11/02/17 09:54 11:00 Temperature 97.1 F L Pulse Rate 79 70 Respiratory 18 18 Rate Blood Pressure 141/78 134/72 O2 Sat by Pulse 99 97 Oximetry - Reevaluation(s) Reevaluation #1: 11/02/17 12:49 Patient reevaluated and resting comfortably in bed. Only mild discomfort at this time. Patient updated on results and plan. Patient states she does have a family history of both Brother with recent heart attack and sister with recent heart attack and heart problems. Case was discussed in detail with Dr. Ramos, who will admit for Dr. Tanner. (Power Carroll) Chest Pain MDM <Power Carroll - Last Filed: 11/02/17 12:49> <Angelina Ferris - Last Filed: 11/02/17 12:56> - MDM 52-year-old female presents with onset of chest pain shortness breath for 2 days. Also complains of leg pain. Patient's symptoms seem to be consistent with restless leg syndrome. Worse at night. Patient legs appear normal. Normal pulses no swelling. Normal sensation and range of motion. Patient be evaluated for chest pain. Her EKG was reviewed and normal. Patient does have a positive family history for heart attacks. Chest x-ray was reviewed and negative for any acute process. Basilar atelectasis noted. Discussed with Dr. Carroll, we will admit the patient for observation. Discussed with Dr. Li. ( Angelina Ferris) Disposition <Power Carroll - Last Filed: 11/02/17 12:49> Is patient prescribed a controlled substance at d/c from ED?: No If prescribed controlled substance>3 days was MAPS reviewed?: No When asked, does pt state using other controlled substances?: No Time of Disposition: 12:56 <Angelina Ferris - Last Filed: 11/02/17 12:56> Clinical Impression: Chest pain, Restless leg Disposition: ADMITTED IP TO THIS HOSP Condition: Good Instructions: Chest Pain (ED) Referrals: Nayeli Tanner MD [Primary Care Provider] - 1-2 days
[2017-11-02 10:35] LABS: Basophils % (A) 1 %; Eosinophils # (A) 0.2 k/uL (0-0.7); Eosinophils % (A) 3 %; HCT 38.5 % (34.0-46.0); HGB 12.3 gm/dL (11.4-16.0); Lymphocytes # (A) 2.6 k/uL (1.0-4.8); Lymphocytes % (A) 49 %; MCH 26.8 pg (25.0-35.0); MCHC 31.8 g/dL (31.0-37.0); MCV 84.2 fL (80.0-100.0); Mean Platelet Volume 7.6; Monocytes # (A) 0.3 k/uL (0-1.0); Monocytes % (A) 6 %; Neutrophils % (A) 39 %; Platelet Count 283 k/uL (150-450); RBC 4.57 m/uL (3.80-5.40); RDW 14.9 % (11.5-15.5); WBC 5.2 k/uL (3.8-10.6)
[2017-11-02 10:45] LABS: ALT 32 U/L (9-52); AST 19 U/L (14-36); Albumin 3.5 g/dL (3.5-5.0); Alkaline Phosphatase 53 U/L (38-126); Amylase 74 U/L (30-110); Anion Gap 10 mmol/L; Blood Urea Nitrogen 15 mg/dL (7-17); Calcium 8.9 mg/dL (8.4-10.2); Carbon Dioxide 24 mmol/L (22-30); Chloride 106 mmol/L (98-107); Glucose 135 mg/dL (74-99); Lipase 123 U/L (23-300); Magnesium 1.6 mg/dL (1.6-2.3); Potassium 3.8 mmol/L (3.5-5.1); Sodium 140 mmol/L (137-145); Total Bilirubin 0.2 mg/dL (0.2-1.3); Total Protein 5.9 g/dL (6.3-8.2)
[2017-11-02 10:53] LABS: D-Dimer 0.3 mg/L FEU (<0.60); Partial Thromboplastin Time 23.2 sec (22.0-30.0); Prothrombin Time 9.7 sec (9.0-12.0)
[2017-11-02 11:00] LABS: Creatine Kinase 215 U/L (30-135)
[2017-11-02 11:11] LABS: Creatine Kinase MB 0.6 ng/mL (0.0-2.4); Troponin I <0.012 ng/mL (0.000-0.034)
--- NOTE | 2017-11-02 11:18 | XR ---
EXAMINATION TYPE: XR chest 2V DATE OF EXAM: 11/02/2017 COMPARISON: Prior chest 09/29/2017 HISTORY: Chest pain and shortness of breath TECHNIQUE: Frontal and lateral views of the chest are obtained. FINDINGS: There is no pleural effusion or pneumothorax seen. The cardiac silhouette size is within normal limits. Bandlike foci of increased attenuation again noted at the lung bases likely represent scar or atelectasis. The osseous structures are intact. There are overlying cardiac leads. IMPRESSION: Basilar scarring or atelectasis.
[2017-11-02] MEDS ORDERED: ACETAMINOPHEN TAB 325 MG TAB PO PRN (12:56)
[2017-11-02] MEDS ORDERED: IBUPROFEN 400 MG TAB PO PRN (12:56)
[2017-11-02] MEDS ORDERED: NALOXONE 0.4 MG/ML 1 ML VIAL IV PRN (12:56)
[2017-11-02] MEDS ORDERED: GABAPENTIN 300 MG CAP PO STA (13:30)
[2017-11-02] MEDS ORDERED: ASPIRIN 325 MG TAB PO STA (13:34)
[2017-11-02] MEDS: SODIUM CHLORIDE 0.9% 1,000 ML IV SCH (14:12)
[2017-11-02] MEDS: GABAPENTIN 100 MG CAP PO SCH ×2 (16:38→20:57)
--- NOTE | 2017-11-02 18:01 | P.CNNES ---
History of Present Illness Consult date: 11/02/17 Requesting physician: Lincoln Ramos Reason for Consult: Restless leg syndrome History of Present Illness: Patient is a pleasant 52-year-old -[place]an female who is being evaluated by the neurology service today on 11/02/2017 per the request of Dr. Ramos for restless leg syndrome. Patient reports long history of restless leg syndrome as well as knee pain and chronic back pain. Patient states she was also having chest pain and shortness of breath over the past 2 days and decided to come to [facility] for further evaluation. Patient reports she does have significant history of anxiety and she thinks it may be anxiety related as well. Patient denies being diabetic. Patient states her only home medication is Zantac 75 mg twice daily. Vital signs on admission were temp 97.1 , pulse 79, respirations 18, blood pressure 141/78, O2 saturation 99% on room air. Labs on admission were essentially unremarkable except for elevated total creatinine kinase of 215. Cardiology's been consulted for chest pain. At the time of my evaluation, patient's resting comfortably in bed and appears to be in no acute distress. Review of Systems REVIEW OF SYSTEMS: Otherwise unremarkable and noncontributory. Past Medical History Past Medical History: Chest Pain / Angina, GERD/Reflux, Osteoarthritis (OA) Additional Past Medical History / Comment(s): anxiety restless leg syndrome, STRESS TEST 12-12-14(WNL) History of Any Multi-Drug Resistant Organisms: None Reported Past Surgical History: Appendectomy, Cholecystectomy, Tubal Ligation Past Anesthesia/Blood Transfusion Reactions: No Reported Reaction Past Psychological History: Anxiety, Depression Smoking Status: Never smoker Past Alcohol Use History: None Reported Past Drug Use History: None Reported - Past Family History Father Family Medical History: Diabetes Mellitus Additional Family Medical History / Comment(s): HEART DISEASE Mother Family Medical History: Myocardial Infarction ([place]) Additional Family Medical History / Comment(s): FROM [place] AT AGE 45 Medications and Allergies Home Medications Medication Instructions Recorded Confirmed Type Ibuprofen 800 mg PO TID PRN 11/02/17 11/02/17 History Ranitidine HCl [Zantac] 300 mg PO DAILY 11/02/17 11/02/17 History Allergies Allergy/AdvReac Type Severity Reaction Status Date / Time No Known Allergies Allergy Verified 11/02/17 14:36 Physical Examination - Vital Signs Vital Signs: Vital Signs Temp Pulse Pulse Resp BP BP Pulse Ox 11/02/17 16:00 97.6 F 67 18 113/63 98 11/02/17 13:23 97.4 F L 74 16 131/83 97 11/02/17 13:19 98.1 F 74 18 125/67 99 11/02/17 11:00 70 18 134/72 97 11/02/17 09:54 97.1 F L 79 18 141/78 99 Intake and Output 11/02/17 11/02/17 11/02/17 06:59 14:59 22:59 Other: Weight 112.4 kg PHYSICAL EXAM: GENERAL APPEARANCE: Patient is a well-developed, -[place] female who appears to be in no acute distress. HEENT: Normocephalic, atraumatic, no facial asymmetry is seen. Neck is supple with no masses felt. CARDIOVASCULAR: Regular rate and rhythm. ABDOMEN: Nontender, nondistended. EXTREMITIES: Show no edema or clubbing. NEUROLOGICAL EXAM: Patient is awake, alert, and oriented 3. Speech and language are normal. Strength is full in all 4 extremities. Sensory exam is normal to light touch in all 4 extremities. No facial asymmetry seen on cranial nerve testing. No tremors or seizure-like activity noted. Results - Laboratory Findings CBC and BMP: 11/02/17 10:20 11/02/17 10:20 Abnormal Lab Findings: Abnormal Labs 11/02/17 11/02/17 10:20 10:20 Glucose 135 H Total Creatine Kinase 215 H Total Protein 5.9 L Assessment and Plan Plan: Impression: 1. Restless leg syndrome 2. Chest pain 3. Chronic knee pain 4. GERD 5. Anxiety disorder 6. Osteoarthritis Recommendation: It does appear patient has symptoms consistent with restless leg syndrome. Patient reports she has been on Requip in the past and cannot remember whether it helped or not. Reviewing past notes, patient did report relief with Requip. Patient follows with orthopedics for chronic knee pain and is due to have an MRI later this month. I will start the patient on low-dose Requip daily at bedtime and this was explained to patient in detail that this medication needs to be titrated up slowly. I will order Zofran 4 mg by mouth when necessary for nausea. Patient is asking for medication for anxiety and for sleep. I explained once we get her leg pain under control this may help anxiety and help her sleep. Cardiology has been consulted for chest pain. Patient can have a further neurophysiological workup in the office setting as an outpatient. We can do NCS/EMG in the office. For now, Neurontin has been started and I agree. I will continue to follow with you. Further recommendations to follow. Thank you for allowing me to participate in the care of your patient. Feel free to call with any questions or concerns. I performed an examination of the patient and discussed the management with the OCCUPATIONAL REHABILITATION AIDE. I have reviewed the OCCUPATIONAL REHABILITATION AIDE notes and agree with the findings and plan of care.
--- NOTE | 2017-11-02 18:36 | P.HPIM ---
History of Present Illness H&P Date: 11/02/17 Chief Complaint: Chest pain this patient's a 52-year-old obese -Serbian female presents emergency department today chief complaint of chest pain and stress of breath for the past 2 days. Patient reported a dull achy substernal nonradiating 8/10 over the last 2 days also describes a pressure-like feeling in her chest, with associated shortness of breath, nausea and diaphoresis. Patient reports that she has been evaluated in the past and was told that her symptoms are related to anxiety. No history of high blood pressure diabetes. Nonsmoker. She reports a strong family history of heart disease reports her 49-year-old brother was diagnosed with an acute DC yesterday She also complains of leg pain , which at present is her major concern major complaint. She states is worse at night. She states that she feels like she has been under increased stress due to her leg pain tonight and noncontributory anxiety. Patient states that it feels like she cannot sleep well. Patient has been on Requip and Mirapex but both were discontinued secondary to ongoing nausea. The patient reports she had a stress test 2 years ago which was reportedly normal Denies any swelling or trauma to the legs. She did have a ultrasound completed one month ago for similar complaints of pain. That was negative for DVT. Patient states that she feels anxious. In the ER showed extensive workup initial EKG showed normal sinus rhythm no evidence of acute ischemia, cardiac troponins initially were negative as well. Chest x-ray showed basilar scarring or atelectasis. She was given a dose of Ativan without significant improvement of her symptoms Review of Systems All other 12 point review of systems negative except per HPI Past Medical History Past Medical History: Chest Pain / Angina, GERD/Reflux, Osteoarthritis (OA) Additional Past Medical History / Comment(s): anxiety restless leg syndrome, STRESS TEST 12-12-14(WNL) History of Any Multi-Drug Resistant Organisms: None Reported Past Surgical History: Appendectomy, Cholecystectomy, Tubal Ligation Past Anesthesia/Blood Transfusion Reactions: No Reported Reaction Past Psychological History: Anxiety, Depression Smoking Status: Never smoker Past Alcohol Use History: None Reported Past Drug Use History: None Reported - Past Family History Father Family Medical History: Diabetes Mellitus Additional Family Medical History / Comment(s): HEART DISEASE Mother Family Medical History: Myocardial Infarction ([place]) Additional Family Medical History / Comment(s): FROM [place] AT AGE 45 Medications and Allergies Home Medications Medication Instructions Recorded Confirmed Type Ibuprofen 800 mg PO TID PRN 11/02/17 11/02/17 History Ranitidine HCl [Zantac] 300 mg PO DAILY 11/02/17 11/02/17 History Allergies Allergy/AdvReac Type Severity Reaction Status Date / Time No Known Allergies Allergy Verified 11/02/17 14:36 Physical Exam Vitals: Vital Signs Temp Pulse Resp BP Pulse Ox 11/02/17 11:00 70 18 134/72 97 11/02/17 09:54 97.1 F L 79 18 141/78 99 Intake and Output 11/01/17 11/02/17 11/02/17 22:59 06:59 14:59 Other: Weight 104.326 kg Constitutional: No acute distress, conversant, pleasant Eyes: Anicteric sclerae, moist conjunctiva, no lid-lag, PERRLA ENMT: NC/AT,Oropharynx clear, no erythema, exudates Neck:Supple, FROM, no masses, or JVD, No carotid bruits; No thyromegaly Lungs: Clear to auscultation, Clear to percussion, Normal respiratory effort, no accessory muscle use Cardiovascular: Heart regular in rate and rhythm, No murmurs, gallops, or rubs no peripheral edema Abdominal: Soft Nontender, nom distended, no guarding, no rebound or rigidity, Normoactive bowel sounds No hepatomegaly, No splenomegaly, No palpable mass No abdominal wall hernia noted Skin: Normal temperature, tone, texture, turgor, No induration No subcutaneous nodules, No rash, lesions, No ulcers Extremities:No digital cyanosis No clubbing, Pedal pulses intact and symmetrical Radial pulses intact and symmetrical Normal gait and station, No calf tenderness Psychiatric: Alert and oriented to person, place and time, Appropriate affect Intact judgement Neuro: Muscles Strength 5/5 in all 4 extremities, Sensation to light touch grossly present throughout, Cranial nerves II-XII grossly intact. No focal sensory deficits Results CBC & Chem 7: 11/02/17 10:20 11/02/17 10:20 Labs: Abnormal Lab Results - Last 24 Hours (Table) 11/02/17 11/02/17 Range/Units 10:20 10:20 Glucose 135 H (74-99) mg/dL Total Creatine Kinase 215 H (30-135) U/L Total Protein 5.9 L (6.3-8.2) g/dL Assessment and Plan (1) Atypical chest pain Current Visit: Yes Status: Acute Code(s): R07.89 - OTHER CHEST PAIN SNOMED Code(s): 991720256 (2) Restless leg syndrome Current Visit: Yes Status: Acute Code(s): G25.81 - RESTLESS LEGS SYNDROME SNOMED Code(s): 53371194 (3) Anxiety Current Visit: No Status: Acute Code(s): F41.9 - ANXIETY DISORDER, UNSPECIFIED SNOMED Code(s): 70492074 Plan: Patient presenting with atypical chest pain with minimal cardiac risk factors being age and family history, initial EKG and cardiac enzymes negative for any suggestion of any acute ischemia, we'll continue to trend and cycle troponins. Start aspirin 325 mg by mouth daily, we'll workup her restless leg syndrome check TSH and vitamin B12 and folate magnesium. We'll start the patient on Neurontin and consult urology for further recommendations. We'll also consult cardiology. We'll continue to follow her clinical course and place the patient on DVT prophylaxis
[2017-11-02 19:25] LABS: Creatine Kinase 189 U/L (30-135)
[2017-11-02 19:36] LABS: Creatine Kinase MB 0.5 ng/mL (0.0-2.4); Troponin I <0.012 ng/mL (0.000-0.034)
[2017-11-02] MEDS: Acetaminophen-Codeine 300-30mg TAB PO PRN (20:58)
[2017-11-02 22:29] LABS: Creatine Kinase 164 U/L (30-135)
[2017-11-02 22:30] LABS: Cholesterol 200 mg/dL (<200); HDL Cholesterol 39 mg/dL (40-60); Triglycerides 475 mg/dL (<150)
[2017-11-02 22:40] LABS: Creatine Kinase MB 0.3 ng/mL (0.0-2.4); Troponin I <0.012 ng/mL (0.000-0.034)
[2017-11-03] MEDS: Acetaminophen-Codeine 300-30mg TAB PO PRN ×2 (00:27→13:32)
[2017-11-03] MEDS ORDERED: MAG HYDROX/AL HYDROX/SIMETH 30 ML CUP PO PRN (03:55)
[2017-11-03] MEDS ORDERED: MAG HYDROX/AL HYDROX/SIMETH 30 ML CUP ONE (04:00)
[2017-11-03] MEDS: ONDANSETRON 4 MG/2 ML VIAL IVP PRN ×2 (04:01→13:33)
[2017-11-03 07:38] VITALS: RESP 16
[2017-11-03] MEDS ORDERED: ASPIRIN 81 MG PO SCH (09:00)
[2017-11-03] MEDS ORDERED: ASPIRIN 325 MG TAB PO SCH (09:00)
[2017-11-03] MEDS ORDERED: REGADENOSON 0.4 MG/5 ML SYRINGE IV ONE (10:26)
[2017-11-03] MEDS ORDERED: AMINOPHYLLINE 500 MG/20 ML VIAL IV PRN (10:26)
--- NOTE | 2017-11-03 11:37 | P.CRDCN ---
History of Present Illness History of present illness: Mrs. Verde is a pleasant 52-year-old female past medical history significant for dyslipidemia, gastroesophageal reflux disease and anxiety. She denies personal history of coronary artery disease, hypertension and diabetes mellitus. She has significant family history with her mother in her 40s from heart disease, sister with heart disease in her 50s and her brother with recent heart attack in his early 50s. We've been asked to see her in consultation for chest pain. She states she woke up yesterday morning with pressure in mid-sternal region associated with shortness of breath, palpitations and nausea. These symptoms persisted for a couple hours until she came here and was given Maalox and Zofran which relieved her symptoms. She has had no further recurrence of chest pain since admission. She is also complaining of chronic leg pain which is been diagnosed with restless leg syndrome. Neurology is seeing her in consultation as well. EKG on arrival reveals sinus mechanism with no acute ST or T-wave abnormalities. Chest x-ray shows a scarring with no acute cardiopulmonary process. Laboratory data reviewed, hemoglobin 12.3, platelets 283, d-dimer 0.3, sodium 140, potassium 3.8, magnesium 1.6, creatinine 0.85, cardiac enzymes negative 3 , TSH 3.5, triglycerides 475, HDL 39, total cholesterol 200. His recent echocardiogram performed May 2016 revealed preserved left ventricular systolic function with ejection fraction 55-60%. She also underwent debridement stress echo at that time which was negative for stress- induced ischemia. Review of Systems At the time of my exam: CONSTITUTIONAL: Denies fever. Denies chills. EYES: Denies blurred vision. Denies vision changes. Denies eye pain. EARS, NOSE, MOUTH & THROAT: Denies headache. Denies sore throat. Denies ear pain. CARDIOVASCULAR: Denies chest pain. Denies shortness of breath. Denies orthopnea. Denies PND. Denies palpitations. RESPIRATORY: Denies cough. GASTROINTESTINAL: Denies abdominal pain. Denies diarrhea. Denies constipation. Denies nausea. Denies vomiting. MUSCULOSKELETAL: Denies myalgias. INTEGUMENTARY: Denies pruitis. Denies rash. NEUROLOGIC: Denies numbness. Denies tingling. Denies weakness. PSYCHIATRIC: Denies anxiety. Denies depression. ENDOCRINE: Denies fatigue. Denies weight change. Denies polydipsia. Denies polyurina. GENITOURINARY: Denies burning, hematuria or urgency with micturation. HEMATOLOGIC: Denies history of anemia. Denies bleeding. Past Medical History Past Medical History: Chest Pain / Angina, GERD/Reflux, Osteoarthritis (OA) Additional Past Medical History / Comment(s): anxiety restless leg syndrome, STRESS TEST 12-12-14(WNL) History of Any Multi-Drug Resistant Organisms: None Reported Past Surgical History: Appendectomy, Cholecystectomy, Tubal Ligation Past Anesthesia/Blood Transfusion Reactions: No Reported Reaction Past Psychological History: Anxiety, Depression Smoking Status: Never smoker Past Alcohol Use History: None Reported Past Drug Use History: None Reported - Past Family History Father Family Medical History: Diabetes Mellitus Additional Family Medical History / Comment(s): HEART DISEASE Mother Family Medical History: Myocardial Infarction ([place]) Additional Family Medical History / Comment(s): FROM [place] AT AGE 45 Medications and Allergies Home Medications Medication Instructions Recorded Confirmed Type Ibuprofen 800 mg PO TID PRN 11/02/17 11/02/17 History Ranitidine HCl [Zantac] 300 mg PO DAILY 11/02/17 11/02/17 History Allergies Allergy/AdvReac Type Severity Reaction Status Date / Time No Known Allergies Allergy Verified 11/02/17 14:36 Physical Exam Vitals: Vital Signs Temp Pulse Pulse Pulse Resp BP BP 11/03/17 07:36 97.8 F 74 16 145/84 11/03/17 04:00 97.9 F 72 15 120/65 11/03/17 03:56 16 11/03/17 00:00 98.0 F 67 16 112/68 11/02/17 20:00 16 11/02/17 19:13 97.9 F 78 16 118/65 11/02/17 16:00 97.6 F 67 18 113/63 11/02/17 13:23 97.4 F L 74 16 131/83 11/02/17 13:19 98.1 F 74 18 125/67 11/02/17 11:00 70 18 134/72 11/02/17 09:54 97.1 F L 79 18 141/78 Pulse Ox 11/03/17 07:36 94 L 11/03/17 04:00 96 11/03/17 03:56 11/03/17 00:00 98 11/02/17 20:00 11/02/17 19:13 96 11/02/17 16:00 98 11/02/17 13:23 97 11/02/17 13:19 99 11/02/17 11:00 97 11/02/17 09:54 99 Intake and Output 11/02/17 11/03/17 11/03/17 22:59 06:59 14:59 Other: # Voids 1 1 Blood pressure 145/84 heart rate 74 afebrile maintaining oxygen saturation on room air GENERAL: This is a 52-year-old -[place] female in no apparent distress at the time of my examination. HEENT: Head is atraumatic, normocephalic. Pupils are equal, round. Sclerae anicteric. Conjunctivae are clear. Mucous membranes of the mouth are moist. Neck is supple. There is no jugular venous distention. No carotid bruit is heard. LUNGS: Clear to auscultation no wheezes, rales or rhonchi. No chest wall tenderness is noted on palpation or with deep breathing. HEART: Regular rate and rhythm without murmurs, rubs or gallops. S1 and S2 heard. ABDOMEN: Soft, nontender. Bowel sounds are heard. No organomegaly noted. EXTREMITIES: No evidence of peripheral edema and no calf tenderness noted. VASCULAR: Radial and dorsalis pedis pulses palpated, no evidence of clubbing. NEUROLOGIC: Patient is awake, alert and oriented x3. Results 11/02/17 10:20 11/02/17 10:20 Cardiac Enzymes 11/02/17 11/02/17 11/02/17 Range/Units 10:20 10:20 18:39 AST 19 (14-36) U/L CK-MB (CK-2) 0.6 0.5 (0.0-2.4) ng/mL Troponin I <0.012 <0.012 (0.000-0.034) ng/mL 11/02/17 Range/Units 21:40 AST (14-36) U/L CK-MB (CK-2) 0.3 (0.0-2.4) ng/mL Troponin I <0.012 (0.000-0.034) ng/mL Coagulation 11/02/17 Range/Units 10:20 PT 9.7 (9.0-12.0) sec APTT 23.2 (22.0-30.0) sec Lipids 11/02/17 Range/Units 21:40 Triglycerides 475 H (<150) mg/dL Cholesterol 200 H (<200) mg/dL HDL Cholesterol 39 L (40-60) mg/dL CBC 11/02/17 Range/Units 10:20 WBC 5.2 (3.8-10.6) k/uL RBC 4.57 (3.80-5.40) m/uL Hgb 12.3 (11.4-16.0) gm/dL Hct 38.5 (34.0-46.0) % Plt Count 283 (150-450) k/uL Comprehensive Metabolic Panel 11/02/17 Range/Units 10:20 Sodium 140 (137-145) mmol/L Potassium 3.8 (3.5-5.1) mmol/L Chloride 106 (98-107) mmol/L Carbon Dioxide 24 (22-30) mmol/L BUN 15 (7-17) mg/dL Creatinine 0.85 (0.52-1.04) mg/dL Glucose 135 H (74-99) mg/dL Calcium 8.9 (8.4-10.2) mg/dL AST 19 (14-36) U/L ALT 32 (9-52) U/L Alkaline Phosphatase 53 (38-126) U/L Total Protein 5.9 L (6.3-8.2) g/dL Albumin 3.5 (3.5-5.0) g/dL Current Medications Generic Name Dose Route Start Last Admin Trade Name Freq PRN Reason Stop Dose Admin Acetaminophen 650 mg 11/02/17 12:56 Tylenol Tab PO Q6HR PRN Mild Pain or Fever > 100.5 Acetaminophen/Codeine Phosphate 1 each 11/02/17 12:56 11/03/17 00:27 Tylenol #3 PO 1 each Q4HR PRN Administration Moderate Pain Al Hydroxide/Mg Hydroxide 30 ml 11/03/17 03:55 11/03/17 04:01 Maalox PO 30 ml Q4HR PRN Administration GI Upset Aspirin 325 mg 11/03/17 09:00 Aspirin PO DAILY [facility] Enoxaparin Sodium 40 mg 11/03/17 09:00 Lovenox SQ DAILY [facility] Gabapentin 100 mg 11/02/17 16:00 11/02/17 20:57 Neurontin PO 100 mg TID KAYODE Administration Sodium Chloride 1,000 mls @ 20 mls/hr 11/02/17 13:00 11/02/17 14:12 Saline 0.9% IV Not Given .Q24H KAYODE Ibuprofen 400 mg 11/02/17 12:56 Motrin PO Q6HR PRN Mild Pain or Fever > 100.5 Naloxone HCl 0.2 mg 11/02/17 12:56 Narcan IV Q2M PRN Opioid Reversal Ondansetron HCl 4 mg 11/02/17 12:56 11/03/17 04:01 Zofran IVP 4 mg Q8HR PRN Administration Nausea And Vomiting Ropinirole HCl 0.25 mg 11/02/17 21:00 11/02/17 20:58 Requip PO 0.25 mg HS KAYODE Administration Intake and Output 11/02/17 11/03/17 11/03/17 22:59 06:59 14:59 Other: # Voids 1 1 11/02/17 10:20 11/02/17 10:20 Assessment and Plan Assessment: ASSESSMENT 1. Chest pain, atypical. An acute coronary event has been ruled out with no EKG evidence of ischemia and negative cardiac enzymes. 2. Dyslipidemia 3. Gastroesophageal reflux disease 4. History of anxiety and depression 5. Significant family history of premature coronary artery disease with mother brother and sister. 6. Hypertriglyceridemia PLAN Obtain 2-D echocardiogram and Doppler study to assess cardiac structure and function. Perform Lexiscan stress test to assess for reversible cardiac ischemia. For both diagnostic stress testing is normal she is stable from a cardiac perspective. Follow-up with Dr. Dang in 2-3 weeks. Thank you kindly for this consultation. Nurse Practitioner note has been reviewed, I agree with a documented findings and plan of care. Patient was seen and examined.
[2017-11-03 11:41] LABS: Folate, Serum 11.4 ng/mL
[2017-11-03 11:48] VITALS: BP 151/68; PULSE 71; TEMP 97.7
[2017-11-03] MEDS: GABAPENTIN 100 MG CAP PO SCH (13:32)
[2017-11-03] MEDS: SODIUM CHLORIDE 0.9% 1,000 ML IV SCH (13:33)
[2017-11-03] MEDS: ENOXAPARIN 40 MG/0.4 ML SYRINGE SQ SCH ×2 (13:33→13:37)
--- NOTE | 2017-11-03 13:34 | NM ---
EXAMINATION TYPE: NM stress lexiscan cardiolite DATE OF EXAM: 11/03/2017 COMPARISON: NONE HISTORY: 52-year-old female with chest pain TECHNIQUE: After the intravenous administration of 10.7 mCi Tc 99m Sestamibi - Cardiolite resting SP ECT images acquired 65 minutes post injection. The patient received 0.4mg Lexiscan, 26.9 mCi Tc 99m Sestamibi - Stress images obtained [address] injection FINDINGS: Review of stress and rest SPECT images demonstrates no distinct perfusion abnormality. Apparent apic al thinning on the stress images shows satisfactory wall augmentation on the gated cine images. Gated analysis shows normal wall motion with an estimated left ventricular ejection fraction of 51 %. TID is calculated at 1.24. IMPRESSION: 1. Borderline to mildly diminished LVEF estimated at 51%. 2. While no discrete perfusion abnormality is seen, TID is mildly increased and can be seen in the se tting of multivessel, balanced ischemia. Further EKG and clinical correlation recommended.
--- NOTE | 2017-11-03 14:43 | P.DS ---
Providers Date of admission: 11/02/17 12:50 Expected date of discharge: 11/03/17 Attending physician: Lincoln Ramos MD Consults: 11/02/17 13:28 Consult Physician Routine Consulting Provider: Adriana Rivera Consult Reason/Comments: RLS Do you want consulting provider notified?: Yes Consult Physician Routine Consulting Provider: Hero Howe Consult Reason/Comments: atypical chest pain Do you want consulting provider notified?: Yes Primary care physician: Nayeli Tanner MD - Discharge Diagnosis(es) (1) Atypical chest pain Current Visit: Yes Status: Acute (2) Restless leg syndrome Current Visit: Yes Status: Acute (3) Anxiety Current Visit: No Status: Acute (4) GERD (gastroesophageal reflux disease) Current Visit: Yes Status: Acute Hospital Course: The patient is a 52-year-old -[place] female that was admitted for atypical chest pain and a strong family history of coronary disease, she was placed in observation to rule out ACS her initial and subsequent cardiac markers were negative for any sedation of acute ischemia. Her EKG was also negative for any ischemic changes, given her strong family history we subsequently ordered a Lexiscan stress test which was negative for any suggestion of coronary artery disease. The patient's chest discomfort was likely anxiety related. Patient seemed to be in mild to moderate distress secondary to her restless leg syndrome, I started her on Neurontin 100 mg by mouth 3 times a day and consulted neurology who added requip to her regimen with some noted improvement of her symptoms. She was subsequently discharged home in stable condition instructed to follow-up with her PCP in the next 2-3 days. new prescriptions at discharge requip 0.25 mg by mouth daily at bedtime Neurontin 100 mg by mouth 3 times a day This discharge process took approximately 25 minutes Constitutional: No acute distress, conversant, pleasant Eyes: Anicteric sclerae, moist conjunctiva, no lid-lag, PERRLA ENMT: NC/AT,Oropharynx clear, no erythema, exudates Neck:Supple, FROM, no masses, or JVD, No carotid bruits; No thyromegaly Lungs: Clear to auscultation, Clear to percussion, Normal respiratory effort, no accessory muscle use Cardiovascular: Heart regular in rate and rhythm, No murmurs, gallops, or rubs no peripheral edema Abdominal: Soft Nontender, nom distended, no guarding, no rebound or rigidity, Normoactive bowel sounds No hepatomegaly, No splenomegaly, No palpable mass No abdominal wall hernia noted Skin: Normal temperature, tone, texture, turgor, No induration No subcutaneous nodules, No rash, lesions, No ulcers Extremities:No digital cyanosis No clubbing, Pedal pulses intact and symmetrical Radial pulses intact and symmetrical Normal gait and station, No calf tenderness Psychiatric: Alert and oriented to person, place and time, Appropriate affect Intact judgement Neuro: Muscles Strength 5/5 in all 4 extremities, Sensation to light touch grossly present throughout, Cranial nerves II-XII grossly intact. No focal sensory deficits Patient Condition at Discharge: Good Plan - Discharge Summary Discharge Rx Participant: No New Discharge Prescriptions: New Gabapentin [Neurontin] 100 mg PO TID #90 cap rOPINIRole HCL [Requip] 0.25 mg PO HS #30 tab Continue Ranitidine HCl [Zantac] 300 mg PO DAILY Discontinued Ibuprofen 800 mg PO TID PRN PRN Reason: Pain Discharge Medication List Ranitidine HCl [Zantac] 300 mg PO DAILY 11/02/17 [History] Gabapentin [Neurontin] 100 mg PO TID #90 cap 11/03/17 [Rx] rOPINIRole HCL [Requip] 0.25 mg PO HS #30 tab 11/03/17 [Rx] Follow up Appointment(s)/Referral(s): Nayeli Tanner MD [Primary Care Provider] - 1-2 days Hero Howe MD [STAFF PHYSICIAN] - 11/18/17 4:00 pm Patient Instructions/Handouts: Chest Pain (ED)
--- NOTE | 2017-11-03 18:39 | ECHOF ---
Referral Reason:cp, sob MEASUREMENTS -------- HEIGHT: 172.7 cm WEIGHT: 112.0 kg BP: 145/84 RVIDd: 3.4 cm (< 3.3) IVSd: 1.1 cm (0.6 - 1.1) LVIDd: 5.2 cm (3.9 - 5.3) LVPWd: 1.1 cm (0.6 - 1.1) IVSs: 1.8 cm LVIDs: 3.3 cm LVPWs: 1.5 cm LA Diam: 3.6 cm (2.7 - 3.8) LAESV Index (A-L): 27.80 ml/m Ao Diam: 3.3 cm (2.0 - 3.7) AV Cusp: 2.2 cm (1.5 - 2.6) MV EXCURSION: 16.312 mm (> 18.000) MV EF SLOPE: 102 mm/s (70 - 150) EPSS: 0.8 cm MV E Abraham: 0.65 m/s MV DecT: 271 ms MV A Abraham: 0.69 m/s MV E/A Ratio: 0.94 RAP: 5.00 mmHg RVSP: 28.31 mmHg FINDINGS -------- Sinus rhythm. This was a technically adequate study. The left ventricular size is normal. There is borderline concentric left ventricular hypertrophy. Overall left ventricular systolic function is normal with, an EF between 55 - 60 %. The right ventricle is mildly enlarged. Normal LA size by volume 22+/-6 ml/m2. The right atrium is normal in size. The aortic valve is trileaflet and appears structurally normal. There is trace to mild mitral regurgitation. Mild tricuspid regurgitation present. Right ventricular systolic pressure is normal at < 35 mmHg. There is no pulmonic regurgitation present. The aortic root size is normal. IVC Not well visulized. There is no pericardial effusion. CONCLUSIONS -------- 1. Sinus rhythm. 2. This was a technically adequate study. 3. The left ventricular size is normal. 4. There is borderline concentric left ventricular hypertrophy. 5. Overall left ventricular systolic function is normal with, an EF between 55 - 60 %. 6. The right ventricle is mildly enlarged. 7. Normal LA size by volume 22+/-6 ml/m2. 8. The right atrium is normal in size. 9. The aortic valve is trileaflet and appears structurally normal. 10. There is trace to mild mitral regurgitation. 11. Mild tricuspid regurgitation present. 12. Right ventricular systolic pressure is normal at < 35 mmHg. 13. There is no pulmonic regurgitation present. 14. The aortic root size is normal. 15. IVC Not well visulized. 16. There is no pericardial effusion. VIRTUAL ASSISTANT FOR [employer]VERTISERS: Kaci Rothman RDCS
--- NOTE | 2017-11-04 08:07 | EST ---
EXERCISE STRESS DATE OF SERVICE: 11/02/2017 AGE: 52 SEX: F HT: 68" WT: 137 PROTOCOL: Lexiscan Cardiolite Stress Test. HEART RATE REST: 76 BLOOD PRESSURE REST: 112/87 MAXIMUM HEART RATE ACHIEVED: 95 MAXIMUM BLOOD PRESSURE: 153/86 85% MPHR: 141 100% MPHR: 166. INDICATION OF THE STUDY: Chest pain. CLINICAL INFORMATION: STRESS DATA: Pretesting physical examination showed a heart rate of 76, pressure is 112/87 mmHg. Baseline EKG showed sinus mechanism. 0.4 mg of Lexiscan was given to the patient over 15 seconds per protocol. The max heart rate was 95 beats per minute and maximum pressure was 153/86 mmHg. Clinically, the patient did not have any symptoms of chest pain or discomfort and the EKG did not show any significant ST or T-wave abnormalities consistent with ischemia. CONCLUSION: 1. Nondiagnostic electrocardiogram stress testing in response to Lexiscan. 2. Please follow up on the Cardiolite portion on separate report from radiology department. MMODL / IJN: [id number] /
== END 2017-11-03 15:12 | disposition home or self-care (01) ==
LOC: EC 09:52 → 3OBS 12:50
PROVIDERS: ADMIT Family Medicine; ATTEND Family Medicine
DX: R07.89 Other chest pain (principal); G25.81 Restless legs syndrome; F41.9 Anxiety disorder, unspecified; E78.5 Hyperlipidemia, unspecified; K21.9 Gastro-esophageal reflux disease without esophagitis; R11.0 Nausea; E78.1 Pure hyperglyceridemia; F32.9 Major depressive disorder, single episode, unspecified; R74.8 Abnormal levels of other serum enzymes; M19.90 Unspecified osteoarthritis, unspecified site; G89.29 Other chronic pain; M54.9 Dorsalgia, unspecified; M25.569 Pain in unspecified knee; Z79.899 Other long term (current) drug therapy; Z90.49 Acquired absence of other specified parts of digestive tract; E66.9 Obesity, unspecified; Z68.37 Body mass index [BMI] 37.0-37.9, adult; Z83.3 Family history of diabetes mellitus; Z82.49 Family history of ischemic heart disease and other diseases of the circulatory system
CPT/HCPCS: 96361 ×4; 99285 ×2; 96374; 96376; 36415; 93005; 93017; 93306; 85379; 83880; 80061; 80053; 84443; 82607; 82728; 82150; 82550; 82553; 82746; 83690; 83735; 84484; 85025; 85610; 85730; 71046; 78452; G0378 ×2; A9500; J2405; J2785; 96375

== ENCOUNTER 2017-12-16 16:19 | Emergency (ER) | payer MEDICARE, OTHER ==
[2017-12-16 18:25] VITALS: RESP 18; TEMP 98.3
[2017-12-16] MEDS ORDERED: LORazepam 1 MG TAB PO STA (18:32)
[2017-12-16] MEDS ORDERED: KETOROLAC 60 MG/2 ML VIAL IM STA (18:32)
--- NOTE | 2017-12-16 18:38 | ED ---
General Adult HPI - General Chief complaint: Chest Pain Stated complaint: Chest pain/legs/elbow pain Time Seen by Provider: 12/16/17 17:00 Source: patient, RN notes reviewed Mode of arrival: wheelchair Limitations: no limitations - History of Present Illness Initial comments: This is a 52-year-old female presents emergency Department complaining of chronic leg pain. Patient states she's had her knee pain for 10 years and today it was getting a little worse so she decided come in. She also states her anxiety is been acting up and she has not been able to see her primary medical care doctor lately because she didn't have insurance until just recently. Patient states she doesn't have any chest pain but she has little chest tightness when she has anxiety episodes. Patient states that occurred just prior to arrival because of the pain in her legs. Patient denies any fever or chills. Patient denies any new injury or trauma. Patient denies any chest pain at this present time. Patient denies difficulty breathing shortness of breath diaphoresis or nausea. Patient denies any palpitations. Patient denies abdominal pain. - Related Data Home Medications Medication Instructions Recorded Confirmed Ranitidine HCl [Zantac] 300 mg PO DAILY 11/02/17 11/02/17 Previous Rx's Medication Instructions Recorded Gabapentin [Neurontin] 100 mg PO TID #90 cap 11/03/17 rOPINIRole HCL [Requip] 0.25 mg PO HS #30 tab 11/03/17 ALPRAZolam [Xanax] 0.25 mg PO BID #6 tab 12/16/17 Ketorolac [Toradol] 10 mg PO Q6HR #15 tab 12/16/17 Allergies Allergy/AdvReac Type Severity Reaction Status Date / Time No Known Allergies Allergy Verified 12/16/17 18:21 Review of Systems ROS Statement: Those systems with pertinent positive or pertinent negative responses have been documented in the HPI. ROS Other: All systems not noted in ROS Statement are negative. Past Medical History Past Medical History: Chest Pain / Angina, GERD/Reflux, Osteoarthritis (OA) Additional Past Medical History / Comment(s): anxiety restless leg syndrome, STRESS TEST 12-12-14(WNL) History of Any Multi-Drug Resistant Organisms: None Reported Past Surgical History: Appendectomy, Cholecystectomy, Tubal Ligation Past Anesthesia/Blood Transfusion Reactions: No Reported Reaction Past Psychological History: Anxiety, Depression Smoking Status: Never smoker Past Alcohol Use History: None Reported Past Drug Use History: None Reported - Past Family History Father Family Medical History: Diabetes Mellitus Additional Family Medical History / Comment(s): HEART DISEASE Mother Family Medical History: Myocardial Infarction ([place]) Additional Family Medical History / Comment(s): FROM [place] AT AGE 45 General Exam - General Exam Comments Initial Comments: GENERAL: Patient is well-developed and well-nourished. Patient is nontoxic and well- hydrated and is in no acute distress. ENT: Neck is soft and supple. No significant lymphadenopathy is noted. Oropharynx is clear. Moist mucous membranes. Neck has full range of motion without eliciting any pain. EYES: The sclera were anicteric and conjunctiva were pink and moist. Extraocular movements were intact and pupils were equal round and reactive to light. Eyelids were unremarkable. PULMONARY: Unlabored respirations. Good breath sounds bilaterally. No audible rales rhonchi or wheezing was noted. CARDIOVASCULAR: There is a regular rate and rhythm without any murmurs gallops or rubs. ABDOMEN: Soft and nontender with normal bowel sounds. No palpable organomegaly was noted. There is no palpable pulsatile mass. SKIN: Skin is clear with no lesions or rashes and otherwise unremarkable. NEUROLOGIC: Patient is alert and oriented x3. Cranial nerves II through XII are grossly intact. Motor and sensory are also intact. Normal speech, volume and content. Symmetrical smile. MUSCULOSKELETAL: Normal extremities with adequate strength and full range of motion. LYMPHATICS: No significant lymphadenopathy is noted PSYCHIATRIC: Patient appears mildly anxious Limitations: no limitations Course Vital Signs 12/16/17 16:34 Temperature 98.3 F Pulse Rate 96 Respiratory 18 Rate Blood Pressure 113/76 O2 Sat by Pulse 97 Oximetry Medical Decision Making - Medical Decision Making EKG shows normal sinus rhythm at 89 bpm [place] interval is 132 QRS is 90 QT interval 380 QTC is 462. Patient's EKG shows no ST segment elevation or depression or T wave abnormalities are noted. Patient was requesting only that she got something for the pain and anxiety. Patient did not want a workup. Disposition Clinical Impression: Anxiety, Chronic leg pain Disposition: HOME SELF-CARE Condition: Good Instructions: Anxiety (ED) Prescriptions: ALPRAZolam [Xanax] 0.25 mg PO BID #6 tab Ketorolac [Toradol] 10 mg PO Q6HR #15 tab Is patient prescribed a controlled substance at d/c from ED?: Yes When asked, does pt state using other controlled substances?: No If prescribed controlled substance>3 days was MAPS reviewed?: No Referrals: Minh Root MD [Primary Care Provider] - 1-2 days Time of Disposition: 18:35
[2017-12-16 18:59] VITALS: BP 107/60; PULSE 81
== END 2017-12-16 19:06 | disposition home or self-care (01) ==
LOC: EC 16:19
DX: F41.9 Anxiety disorder, unspecified (principal); M79.661 Pain in right lower leg; M79.662 Pain in left lower leg; G89.29 Other chronic pain; K21.9 Gastro-esophageal reflux disease without esophagitis; Z79.899 Other long term (current) drug therapy
CPT/HCPCS: 99284; 96372; J1885

== ENCOUNTER → 2018-01-24 | Outpatient (CLI) | payer MEDICARE, OTHER ==
--- NOTE | 2018-01-25 12:55 | MR ---
EXAMINATION TYPE: MR knee LT wo con DATE OF EXAM: 01/24/2018 COMPARISON: None HISTORY: Left knee pain TECHNIQUE: Multiplanar, multisequence imaging of the left knee is performed without IV contrast. FINDINGS: MEDIAL MENISCUS: Very minimal increased signals within the substance of the posterior horn medial men iscus. Internal derangement or degenerative change could be considered. Anterior horn appears intact. LATERAL MENISCUS: Very faint increased signal may be present within the anterior posterior horns most likely some mild degenerative change. Mild internal derangement could be considered. CRUCIATE LIGAMENTS: The anterior and posterior cruciate ligaments are intact and unremarkable. COLLATERAL LIGAMENTS: Small cysts appear to be adjacent to the medial collateral ligament. Increased signal is adjacent to the medial collateral ligament which could be some strain. Lateral collateral l igament is intact. EXTENSOR MECHANISM: Visualized quadriceps and patellar tendons are intact. EFFUSION: No significant suprapatellar joint effusion. POPLITEAL CYST: No popliteal/patrick cyst. TRICOMPARTMENT SPACES: Medial and lateral compartment joint spaces are preserved. Patellofemoral join t space is preserved. CARTILAGE: Minimal narrowing of the medial lateral compartment articular cartilage may be present. Th ere is more moderate to advanced patellofemoral articular cartilage degenerative changes. BONE MARROW SIGNAL: No focal abnormal marrow signal is appreciated. OTHER: No additional significant abnormality is appreciated. IMPRESSION: 1. Correlate for mild strain of the medial collateral ligament. 2. Small cysts adjacent to the medial collateral ligament. 3. Osteoarthritic degenerative change predominantly within the patellofemoral joint space. 4. Probable degenerative changes of the anterior and posterior horns lateral meniscus and posterior h orn medial meniscus. No tear communicating with an articular surface is evident. Differential diagnos is could include mild grade 1 internal derangement.
== END | disposition home or self-care (01) ==
LOC: RADMRIMAIN 11:44
PROVIDERS: ATTEND Orthopaedic Surgery
DX: M17.12 Unilateral primary osteoarthritis, left knee (principal)

== ENCOUNTER 2018-03-24 03:43 | Emergency (ER) | payer MEDICARE, OTHER ==
[2018-03-24 04:30] VITALS: RESP 18
[2018-03-24 04:43] LABS: Basophils # (A) 0.1 k/uL (0-0.2); Basophils % (A) 1 %; Eosinophils # (A) 0.2 k/uL (0-0.7); Eosinophils % (A) 3 %; HCT 41.5 % (34.0-46.0); HGB 13.5 gm/dL (11.4-16.0); Lymphocytes # (A) 3.6 k/uL (1.0-4.8); Lymphocytes % (A) 52 %; MCH 27.5 pg (25.0-35.0); MCHC 32.5 g/dL (31.0-37.0); MCV 84.4 fL (80.0-100.0); Mean Platelet Volume 7.4; Monocytes # (A) 0.4 k/uL (0-1.0); Monocytes % (A) 6 %; Neutrophils # (A) 2.5 k/uL (1.3-7.7); Neutrophils % (A) 37 %; Platelet Count 252 k/uL (150-450); RBC 4.92 m/uL (3.80-5.40); RDW 13.8 % (11.5-15.5); WBC 6.8 k/uL (3.8-10.6)
--- NOTE | 2018-03-24 04:47 | XR ---
EXAMINATION TYPE: XR chest 2V DATE OF EXAM: 03/24/2018 COMPARISON: 11/02/2017 HISTORY: Chest pain TECHNIQUE: Frontal and lateral views of the chest are obtained. FINDINGS: There is patchy linear density in the lower lobes. Heart size is normal. There is no heart failure. There are chest leads. Costophrenic angles are clear. Bony thorax is intact. IMPRESSION: Patchy lower lobe subsegmental atelectasis is slightly worse than old exam. Normal heart .
[2018-03-24] MEDS ORDERED: ASPIRIN 81 MG PO STA (04:49)
--- NOTE | 2018-03-24 04:50 | ED ---
Chest Pain HPI - General Chief Complaint: Chest Pain Stated Complaint: chest pain Time Seen by Provider: 03/24/18 03:54 Source: patient Mode of arrival: wheelchair Limitations: no limitations - History of Present Illness Initial Comments: Ms. Verde is a 53-year-old female who presents the ED today for evaluation of 2 days of chest pressure and palpitations. Patient reports that over the past 2 days she has had a constant chest pressure and intermittent palpitations feeling like her heart is racing going to beat out of her chest. Patient reports she's had symptoms similar to this in the past, she's been admitted to the hospital and undergone cardiac workup in his been advised that the symptoms are likely related to stress or anxiety. Patient does report that she is recently seen her primary care physician and was prescribed Ativan due to increased social stressors in her life however the patient has not tried taking any in the past 2 days as Patient describes the sensation as a pressure from her neck down her sternum. Sensation is constant with no exacerbating or relieving factors. The sensation occurs at rest as well as with activity with no change in the sensation. Patient also reports that she feels palpitations, she can feel her heart racing , this occurs at rest and with activity. She cannot identify any exacerbating or relieving factors to this either. Patient reports that she does not drink much caffeine, doesn't take any weight loss or workout supplements, she doesn't eat chocolate too often though she does occasionally. She can't recall she's had any chocolate or caffeine in the past 48 hours. Patient states she's been under a lot of stress lately. Her granddaughter was born 2 years ago with VACTERL syndrome, she has undergone surgeries for imperforate anus, multiple cardiac anomalies and has one more cardiac surgery scheduled. 2 weeks ago her granddaughter was hospitalized for a bleeding ulcer which resulted in hematemesis and easier. Her granddaughter was just recently released from [facility] this weekend. Ms. Verde expresses a lot of stress taking care of her granddaughter and concern for her granddaughter's health. - Related Data Home Medications Medication Instructions Recorded Confirmed Ranitidine HCl [Zantac] 300 mg PO DAILY 11/02/17 11/02/17 Previous Rx's Medication Instructions Recorded Gabapentin [Neurontin] 100 mg PO TID #90 cap 11/03/17 rOPINIRole HCL [Requip] 0.25 mg PO HS #30 tab 11/03/17 ALPRAZolam [Xanax] 0.25 mg PO BID #6 tab 12/16/17 Ketorolac [Toradol] 10 mg PO Q6HR #15 tab 12/16/17 Allergies Allergy/AdvReac Type Severity Reaction Status Date / Time No Known Allergies Allergy Verified 03/24/18 04:29 Review of Systems ROS Statement: Those systems with pertinent positive or pertinent negative responses have been documented in the HPI. ROS Other: All systems not noted in ROS Statement are negative. EKG Findings - EKG Comments: EKG Findings:: EKG obtained at 4 AM, rate is 70, rhythm is sinus, normal axis, normal intervals, [place] 160, QRS 82, QTc 440. There is no evidence of acute ischemia or infarction. No arrhythmia. No PVCs or PACs noted on this EKG. Past Medical History Past Medical History: Chest Pain / Angina, GERD/Reflux, Osteoarthritis (OA) Additional Past Medical History / Comment(s): anxiety restless leg syndrome, STRESS TEST 12-12-14(WNL) History of Any Multi-Drug Resistant Organisms: None Reported Past Surgical History: Appendectomy, Cholecystectomy, Tubal Ligation Past Anesthesia/Blood Transfusion Reactions: No Reported Reaction Past Psychological History: Anxiety, Depression Smoking Status: Never smoker Past Alcohol Use History: None Reported Past Drug Use History: None Reported - Past Family History Father Family Medical History: Diabetes Mellitus Additional Family Medical History / Comment(s): HEART DISEASE Mother Family Medical History: Myocardial Infarction ([place]) Additional Family Medical History / Comment(s): FROM [place] AT AGE 45 General Exam Limitations: no limitations Course Vital Signs 03/24/18 03/24/18 03/24/18 04:00 04:31 05:30 Temperature 97.9 F Pulse Rate 73 70 Pulse Rate [ 75 Video System Repairer ] Respiratory 18 18 Rate Blood Pressure 137/83 119/68 O2 Sat by Pulse 96 96 Oximetry Chest Pain MDM - [facility] Patient was seen and evaluated, history is obtained from the patient Patient's heart score 2 for age and risk factors Cardiac workup was ordered EKG with no acute ST elevations or depressions Results were discussed with the patient, I offered the patient observation for evaluation by cardiology versus discharge home. At this time the patient would prefer to be discharged home. All questions pertaining care were answered best my ability and return parameters were discussed. Patient was discharged home in stable condition. Disposition Clinical Impression: Atypical chest pain Disposition: HOME SELF-CARE Instructions: Chest Pain (ED), Costochondritis (ED) Is patient prescribed a controlled substance at d/c from ED?: No Referrals: Minh Root MD [Primary Care Provider] - 1-2 days
[2018-03-24 04:52] LABS: ALT 17 U/L (9-52); AST 28 U/L (14-36); Albumin 3.6 g/dL (3.5-5.0); Alkaline Phosphatase 49 U/L (38-126); Anion Gap 6 mmol/L; Blood Urea Nitrogen 21 mg/dL (7-17); Calcium 8.9 mg/dL (8.4-10.2); Carbon Dioxide 22 mmol/L (22-30); Chloride 109 mmol/L (98-107); Glucose 128 mg/dL (74-99); Magnesium 1.6 mg/dL (1.6-2.3); Sodium 137 mmol/L (137-145); Total Bilirubin 0.9 mg/dL (0.2-1.3); Total Protein 6.4 g/dL (6.3-8.2)
[2018-03-24 04:53] LABS: Potassium 5.3 mmol/L (3.5-5.1)
[2018-03-24 05:01] LABS: Creatine Kinase 161 U/L (30-135)
[2018-03-24 05:15] LABS: Creatine Kinase MB 0.9 ng/mL (0.0-2.4); Troponin I <0.012 ng/mL (0.000-0.034)
[2018-03-24 05:17] LABS: D-Dimer 0.24 mg/L FEU (<0.60); Partial Thromboplastin Time 22.2 sec (22.0-30.0); Prothrombin Time 9.8 sec (9.0-12.0)
[2018-03-24 07:26] VITALS: BP 127/66; PULSE 65; TEMP 97.1
== END 2018-03-24 07:21 | disposition home or self-care (01) ==
LOC: EC 03:43
DX: R07.89 Other chest pain (principal); R00.2 Palpitations; K21.9 Gastro-esophageal reflux disease without esophagitis; Z79.899 Other long term (current) drug therapy; Z63.79 Other stressful life events affecting family and household; Z82.49 Family history of ischemic heart disease and other diseases of the circulatory system
CPT/HCPCS: 36415; 71046; 80053; 82550; 82553; 83735; 84484; 85025; 85379; 85610; 85730; 93005; 99285

== ENCOUNTER 2018-04-16 10:30 | Observation (INO) | payer MEDICARE, OTHER ==
[2018-04-16] MEDS ORDERED: NITROGLYCERIN OINT 1 INCH/GM PACKET TOPICAL STA (10:58)
[2018-04-16] MEDS ORDERED: ASPIRIN 81 MG PO STA (10:58)
[2018-04-16] MEDS ORDERED: MAG HYDROX/AL HYDROX/SIMETH 30 ML, HYOSCYAMINE ELIXIR 10 ML, CIMETIDINE HCL 300 MG, LID... PO ONE ×4 (10:59)
--- NOTE | 2018-04-16 11:02 | ED ---
General Adult HPI - General Chief complaint: Chest Pain Stated complaint: chest pain Time Seen by Provider: 04/16/18 10:35 Source: patient, RN notes reviewed Mode of arrival: wheelchair Limitations: no limitations - History of Present Illness Initial comments: This is a 53-year-old female who presents emergency room with past medical history significant for high cholesterol for which she takes no medications. Patient states she's also told her sugars been high but not been treated for that. Patient states the last 2 weeks she's been having intermittent chest pain which is now become quite persistent. Patient states it feels like an elephant sitting on her chest and his been relatively constant. Patient states she does feel mildly short of breath with this as well. Patient states she thought it was heartburn is taking multiple medications for her. Does not help. Patient states she came to the emergency department in the past for this headache is central back home. Patient states since then the pain is persistent. Patient denies any diaphoretic episodes. Patient denies any thing that makes it worse including exertion. Patient denies any nausea vomiting. Patient denies any episodes tachycardia. Patient denies any abdominal pain. Patient denies headache patient denies numbness weakness per patient denies lightheadedness dizziness or near-syncopal episode per patient denies any calf tenderness or leg swelling. Patient states she does have positive family history for heart disease. - Related Data Home Medications Medication Instructions Recorded Confirmed ALPRAZolam [Xanax] 0.5 - 1 mg PO BID PRN 04/16/18 04/16/18 Diclofenac Sodium [Voltaren] 75 mg PO BID 04/16/18 04/16/18 Hydrocodone/Acetaminophen [[place] 0.5 tab PO BID PRN 04/16/18 04/16/18 10-325] Ranitidine HCl [Zantac] 150 mg PO BID 04/16/18 04/16/18 Zolpidem [Ambien] 5 mg PO HS PRN 04/16/18 04/16/18 Allergies Allergy/AdvReac Type Severity Reaction Status Date / Time No Known Allergies Allergy Verified 03/24/18 04:29 Review of Systems ROS Statement: Those systems with pertinent positive or pertinent negative responses have been documented in the HPI. ROS Other: All systems not noted in ROS Statement are negative. Past Medical History Past Medical History: Chest Pain / Angina, GERD/Reflux, Osteoarthritis (OA) Additional Past Medical History / Comment(s): anxiety restless leg syndrome, STRESS TEST 12-12-14(WNL) History of Any Multi-Drug Resistant Organisms: None Reported Past Surgical History: Appendectomy, Cholecystectomy, Tubal Ligation Past Anesthesia/Blood Transfusion Reactions: No Reported Reaction Past Psychological History: Anxiety, Depression Smoking Status: Never smoker Past Alcohol Use History: None Reported Past Drug Use History: None Reported - Past Family History Father Family Medical History: Diabetes Mellitus Additional Family Medical History / Comment(s): HEART DISEASE Mother Family Medical History: Myocardial Infarction ([place]) Additional Family Medical History / Comment(s): FROM [place] AT AGE 45 General Exam - General Exam Comments Initial Comments: GENERAL: Patient is well-developed and well-nourished. Patient is nontoxic and well- hydrated and is in mild distress. ENT: Neck is soft and supple. No significant lymphadenopathy is noted. Oropharynx is clear. Moist mucous membranes. Neck has full range of motion without eliciting any pain. EYES: The sclera were anicteric and conjunctiva were pink and moist. Extraocular movements were intact and pupils were equal round and reactive to light. Eyelids were unremarkable. PULMONARY: Unlabored respirations. Good breath sounds bilaterally. No audible rales rhonchi or wheezing was noted. CARDIOVASCULAR: There is a regular rate and rhythm without any murmurs gallops or rubs. ABDOMEN: Soft and nontender with normal bowel sounds. No palpable organomegaly was noted. There is no palpable pulsatile mass. SKIN: Skin is clear with no lesions or rashes and otherwise unremarkable. NEUROLOGIC: Patient is alert and oriented x3. Cranial nerves II through XII are grossly intact. Motor and sensory are also intact. Normal speech, volume and content. Symmetrical smile. MUSCULOSKELETAL: Normal extremities with adequate strength and full range of motion. No lower extremity swelling or edema. No calf tenderness. LYMPHATICS: No significant lymphadenopathy is noted PSYCHIATRIC: Normal psychiatric evaluation. Normal interpersonal interactions appears functionally intact in deals appropriately with others. No signs of depression. No signs of anxiety. Limitations: no limitations Course Vital Signs 04/16/18 04/16/18 04/16/18 10:35 11:11 11:15 Temperature 97.7 F Pulse Rate 70 67 Pulse Rate [ 68 Lay Up Operator ] Respiratory 18 20 Rate Blood Pressure 136/75 131/80 O2 Sat by Pulse 99 95 Oximetry 04/16/18 04/16/18 11:42 12:00 Temperature Pulse Rate 67 67 Pulse Rate [ Lay Up Operator ] Respiratory 18 18 Rate Blood Pressure 124/77 118/86 O2 Sat by Pulse 96 Oximetry Medical Decision Making - Medical Decision Making EKG shows normal sinus rhythm at 72 bpm [place] interval 274 [place] is 84 Q-T intervals 404 QTC is 442 per patient's EKG shows no ST segment elevation or depression or T wave abnormalities are noted Chest x-ray shows no acute abnormality. Patient's had no relief from the aspirin and Nitropaste. Patient continues to have some chest pain. I spoke with Dr. Espinosa agreed to admit the patient admitted the patient wrote admitting orders. - Lab Data Result diagrams: 04/16/18 11:05 04/16/18 11:05 Lab Results 04/16/18 04/16/18 04/16/18 Range/Units 11:05 11:05 11:05 WBC 5.6 (3.8-10.6) k/uL RBC 5.33 (3.80-5.40) m/uL Hgb 14.1 (11.4-16.0) gm/dL Hct 45.3 (34.0-46.0) % MCV 85.0 (80.0-100.0) fL MCH 26.5 (25.0-35.0) pg MCHC 31.2 (31.0-37.0) g/dL RDW 13.9 (11.5-15.5) % Plt Count 279 (150-450) k/uL Neutrophils % 40 % Lymphocytes % 49 % Monocytes % 6 % Eosinophils % 2 % Basophils % 1 % Neutrophils # 2.2 (1.3-7.7) k/uL Lymphocytes # 2.8 (1.0-4.8) k/uL Monocytes # 0.3 (0-1.0) k/uL Eosinophils # 0.1 (0-0.7) k/uL Basophils # 0.0 (0-0.2) k/uL PT (9.0-12.0) sec INR (<1.2) APTT (22.0-30.0) sec Sodium 140 (137-145) mmol/L Potassium 4.0 (3.5-5.1) mmol/L Chloride 110 H (98-107) mmol/L Carbon Dioxide 22 (22-30) mmol/L Anion Gap 8 mmol/L BUN 18 H (7-17) mg/dL Creatinine 0.88 (0.52-1.04) mg/dL Est GFR (CKD-EPI)AfAm 86 (>60 ml/min/1.73 sqM) Est GFR (CKD-EPI)NonAf 75 (>60 ml/min/1.73 sqM) Glucose 154 H (74-99) mg/dL Calcium 9.8 (8.4-10.2) mg/dL Magnesium 1.7 (1.6-2.3) mg/dL Total Bilirubin 0.5 (0.2-1.3) mg/dL AST 23 (14-36) U/L ALT 28 (9-52) U/L Alkaline Phosphatase 47 (38-126) U/L Total Creatine Kinase 226 H (30-135) U/L CK-MB (CK-2) 0.8 (0.0-2.4) ng/mL CK-MB (CK-2) Rel Index 0.4 Troponin I <0.012 (0.000-0.034) ng/mL Total Protein 7.1 (6.3-8.2) g/dL Albumin 4.1 (3.5-5.0) g/dL 04/16/18 Range/Units 11:05 WBC (3.8-10.6) k/uL RBC (3.80-5.40) m/uL Hgb (11.4-16.0) gm/dL Hct (34.0-46.0) % MCV (80.0-100.0) fL MCH (25.0-35.0) pg MCHC (31.0-37.0) g/dL RDW (11.5-15.5) % Plt Count (150-450) k/uL Neutrophils % % Lymphocytes % % Monocytes % % Eosinophils % % Basophils % % Neutrophils # (1.3-7.7) k/uL Lymphocytes # (1.0-4.8) k/uL Monocytes # (0-1.0) k/uL Eosinophils # (0-0.7) k/uL Basophils # (0-0.2) k/uL PT 10.1 (9.0-12.0) sec INR 1.0 (<1.2) APTT 22.9 (22.0-30.0) sec Sodium (137-145) mmol/L Potassium (3.5-5.1) mmol/L Chloride (98-107) mmol/L Carbon Dioxide (22-30) mmol/L Anion Gap mmol/L BUN (7-17) mg/dL Creatinine (0.52-1.04) mg/dL Est GFR (CKD-EPI)AfAm (>60 ml/min/1.73 sqM) Est GFR (CKD-EPI)NonAf (>60 ml/min/1.73 sqM) Glucose (74-99) mg/dL Calcium (8.4-10.2) mg/dL Magnesium (1.6-2.3) mg/dL Total Bilirubin (0.2-1.3) mg/dL AST (14-36) U/L ALT (9-52) U/L Alkaline Phosphatase (38-126) U/L Total Creatine Kinase (30-135) U/L CK-MB (CK-2) (0.0-2.4) ng/mL CK-MB (CK-2) Rel Index Troponin I (0.000-0.034) ng/mL Total Protein (6.3-8.2) g/dL Albumin (3.5-5.0) g/dL Disposition Clinical Impression: Chest pain Disposition: ADMITTED IP TO THIS [facility] Referrals: Minh Root MD [Primary Care Provider] - 1-2 days Time of Disposition: 12:34
[2018-04-16 11:23] LABS: Basophils % (A) 1 %; Eosinophils # (A) 0.1 k/uL (0-0.7); Eosinophils % (A) 2 %; HCT 45.3 % (34.0-46.0); HGB 14.1 gm/dL (11.4-16.0); Lymphocytes # (A) 2.8 k/uL (1.0-4.8); Lymphocytes % (A) 49 %; MCH 26.5 pg (25.0-35.0); MCHC 31.2 g/dL (31.0-37.0); Mean Platelet Volume 7.2; Monocytes # (A) 0.3 k/uL (0-1.0); Monocytes % (A) 6 %; Neutrophils # (A) 2.2 k/uL (1.3-7.7); Neutrophils % (A) 40 %; Platelet Count 279 k/uL (150-450); RBC 5.33 m/uL (3.80-5.40); RDW 13.9 % (11.5-15.5); WBC 5.6 k/uL (3.8-10.6)
[2018-04-16 11:32] LABS: Albumin 4.1 g/dL (3.5-5.0); Calcium 9.8 mg/dL (8.4-10.2); Magnesium 1.7 mg/dL (1.6-2.3); Total Bilirubin 0.5 mg/dL (0.2-1.3); Total Protein 7.1 g/dL (6.3-8.2)
[2018-04-16 11:48] LABS: Creatine Kinase 226 U/L (30-135)
[2018-04-16 11:49] LABS: Partial Thromboplastin Time 22.9 sec (22.0-30.0); Prothrombin Time 10.1 sec (9.0-12.0)
[2018-04-16 12:00] LABS: Creatine Kinase MB 0.8 ng/mL (0.0-2.4); Troponin I <0.012 ng/mL (0.000-0.034)
[2018-04-16] MEDS ORDERED: NITROGLYCERIN SL TABS 0.4 MG TAB SUBLINGUAL PRN (12:35)
--- NOTE | 2018-04-16 12:35 | XR ---
EXAMINATION TYPE: XR chest 2V DATE OF EXAM: 04/16/2018 COMPARISON: Prior chest x-ray 03/24/2018 and chest x-ray 12/11/2014 HISTORY: Chest pain TECHNIQUE: Frontal and lateral views of the chest are obtained. FINDINGS: Patient is somewhat rotated. Patchy bibasilar density likely reflects scarring. No evident pneumothorax or pleural effusion. Cardiomediastinal silhouette, pulmonary vascularity and ebonie are s table. IMPRESSION: Probable basilar scar
[2018-04-16 18:03] LABS: Creatine Kinase 178 U/L (30-135)
[2018-04-16] MEDS: NITROGLYCERIN OINT 1 INCH/GM PACKET TOPICAL SCH ×2 (18:10→22:10)
[2018-04-16 18:15] LABS: Creatine Kinase MB 0.6 ng/mL (0.0-2.4); Troponin I <0.012 ng/mL (0.000-0.034)
[2018-04-16] MEDS ORDERED: ACETAMINOPHEN TAB 500 MG TAB PO STA (19:17)
--- NOTE | 2018-04-16 20:06 | CONS ---
CONSULTATION CHIEF COMPLAINT: Chest pain. This is a 53-year-old lady with no significant past medical history who is currently on [place], Ambien and Voltaren and Xanax, comes to hospital complaining of chest pain. Her chest discomfort is sharp, precordial, unrelated to exertion, associated with diaphoresis. Since coming to the hospital she has not had any episodes of chest pain. The EKG is unremarkable. She has had a cardiac enzyme that is negative. The patient was in the hospital back in October with chest pain and was ruled out for myocardial infarction, had a stress test that did not reveal any ischemia. She had an echo done at that time. PAST MEDICAL HISTORY: Negative for hypertension, diabetes, dyslipidemia. MEDICATIONS: Include Zantac, Voltaren, Ambien, [place], and Xanax. ALLERGIES: There are no known drug allergies. FAMILY HISTORY: Negative for premature coronary artery disease. SOCIAL HISTORY: Negative for smoking, EtOH abuse or drug abuse. REVIEW OF SYSTEMS: HEENT is unremarkable. CARDIAC: As described above. RESPIRATORY: Negative. GI: Negative. GENITOURINARY: Negative. ALLERGY/IMMUNOLOGY: Negative. SKIN: Negative. MUSCULOSKELETAL: Negative. CONSTITUTIONAL: Negative. DERM: Negative. ONCOLOGICAL: Negative. The rest of the system review is not relevant. EXAM: Patient is comfortable at rest. Vital signs are stable. There is no jugular venous distention. Carotid upstroke is normal. There is no bruit. Chest exam reveals good air entry bilaterally. Heart exam reveals first and second heart sounds. No gallop. No murmur. No rub. Abdomen is soft, nontender. Exam of extremities did not reveal edema. Peripheral pulses are felt. EKG does not reveal ischemic changes. First set of cardiac enzymes are negative. ASSESSMENT: Chest pain, sharp, atypical. We will obtain serial CPKs and EKGs to rule out myocardial infarction. Obtain a 2D echo. If this workup is benign and unremarkable, she can be discharged home in the morning. The patient had a negative stress test earlier this year. MMODL / IJN: [id number] /
[2018-04-16] MEDS ORDERED: ZOLPIDEM 5 MG TAB PO PRN (22:06)
[2018-04-16] MEDS ORDERED: FAMOTIDINE 20 MG TAB PO SCH (22:15)
[2018-04-16] MEDS: ALPRAZolam 1 MG TAB PO PRN (22:19)
[2018-04-16] MEDS: HYDROcodone/APAP 10-325MG 1 EACH TAB PO PRN (22:20)
--- NOTE | 2018-04-17 00:14 | P.HPIM ---
History of Present Illness H&P Date: 04/16/18 Chief Complaint: Chest pain Patient is a 53-year-old female with a known history of GERD/reflux, osteoarthritis, anxiety and restless leg syndrome came to ER with complaints of chest pain. Patient has been having on and off epigastric pain for the past 2 weeks. Today morning patient woke up with pain and has been constant since then. He is assisted with shortness of breath. No radiation of the pain. Patient does have headache. No nausea vomiting or diaphoresis. No dizziness or lightheadedness. Patient does take Zantac at home for heartburn which did not relieve her symptoms. She says that usually Pepcid relieves her pain. Denied any nausea vomiting or abdominal pain. No diarrhea. No recent illnesses. No recent travel or sick contacts. No cough or sputum production. EKG showed normal sinus rhythm . chest x-ray showed basilar scarring. No acute process. Troponin 1 negative. CBG 154 CPK 226 Review of Systems Constitutional: Patient denies any fever or chills . No generalized weakness or weight loss. Abdomen: Patient denied nausea vomiting and diarrhea and abdominal pain. Cardiovascular: Patient denies any chest pain or short of breath no palpitations. Respiratory: patient denied any cough is from production. No shortness of breath Neurologic: Patient denied any numbness or tingling headache. Musculoskeletal: Patient denies any complaints of joint swelling or deformity. Skin: Negative Psychiatric: Negative Endocrine: No heat or cold intolerance. No recent weight gain. Genitourinary: No dysuria or hematuria. All other 14 point ROS negative except the above Past Medical History Past Medical History: Chest Pain / Angina, GERD/Reflux, Osteoarthritis (OA) Additional Past Medical History / Comment(s): anxiety restless leg syndrome, STRESS TEST 12-12-14(WNL) History of Any Multi-Drug Resistant Organisms: None Reported Past Surgical History: Appendectomy, Cholecystectomy, Tubal Ligation Past Anesthesia/Blood Transfusion Reactions: No Reported Reaction Past Psychological History: Anxiety, Depression Smoking Status: Never smoker Past Alcohol Use History: None Reported Past Drug Use History: None Reported - Past Family History Father Family Medical History: Diabetes Mellitus Additional Family Medical History / Comment(s): HEART DISEASE Mother Family Medical History: Myocardial Infarction ([place]) Additional Family Medical History / Comment(s): FROM [place] AT AGE 45 Medications and Allergies Home Medications Medication Instructions Recorded Confirmed Type ALPRAZolam [Xanax] 1 mg PO BID PRN 04/16/18 04/16/18 History Hydrocodone/Acetaminophen [[place] 1 tab PO BID PRN 04/16/18 04/16/18 History 10-325] Ranitidine HCl [Zantac] 150 mg PO BID 04/16/18 04/16/18 History Zolpidem [Ambien] 5 mg PO HS PRN 04/16/18 04/16/18 History Allergies Allergy/AdvReac Type Severity Reaction Status Date / Time No Known Allergies Allergy Verified 03/24/18 04:29 Physical Exam Vitals: Vital Signs Temp Pulse Pulse Resp BP Pulse Ox 04/16/18 12:00 67 18 118/86 96 04/16/18 11:42 67 18 124/77 04/16/18 11:15 67 20 131/80 95 04/16/18 11:11 68 04/16/18 10:35 97.7 F 70 18 136/75 99 Intake and Output 04/15/18 04/16/18 04/16/18 22:59 06:59 14:59 Other: Weight 108.862 kg Results CBC & Chem 7: 04/16/18 11:05 04/16/18 11:05 Labs: Abnormal Lab Results - Last 24 Hours (Table) 04/16/18 04/16/18 Range/Units 11:05 11:05 Chloride 110 H (98-107) mmol/L BUN 18 H (7-17) mg/dL Glucose 154 H (74-99) mg/dL Total Creatine Kinase 226 H (30-135) U/L Assessment and Plan Assessment: Atypical chest pain. Rule out ACS. Likely GI related. GERD/reflux Osteoarthritis Anxiety Restless leg syndrome Anxiety/depression Elevated CBG. Ordered hB A1c. Morbid obesity with BMI 36.5 DVT prophylaxis Plan: Patient will be continued on pain management as per home medications with [place] 10. Continue the telemetry monitoring. Serial EKGs and troponins. Cardiology was consulted and 2-D echocardiography was ordered. Continue with aspirin for now. Will start on PPI. Anticipate discharge once symptomatically improves. Time with Patient: Greater than 30
[2018-04-17 00:16] LABS: Creatine Kinase 161 U/L (30-135)
[2018-04-17 00:29] LABS: Troponin I <0.012 ng/mL (0.000-0.034)
[2018-04-17 00:35] LABS: Creatine Kinase MB 0.5 ng/mL (0.0-2.4)
[2018-04-17 02:40] LABS: Cholesterol 220 mg/dL (<200); HDL Cholesterol 43 mg/dL (40-60); LDL Cholesterol,Calculated 151 mg/dL (0-99); Triglycerides 132 mg/dL (<150)
[2018-04-17 07:28] VITALS: PULSE 62; RESP 18
[2018-04-17] MEDS ORDERED: PANTOPRAZOLE 40 MG TABLET PO SCH (07:30)
[2018-04-17] MEDS: HYDROcodone/APAP 10-325MG 1 EACH TAB PO PRN (08:06)
[2018-04-17] MEDS ORDERED: ASPIRIN 325 MG TAB PO SCH (09:00)
[2018-04-17] MEDS ORDERED: ATORVASTATIN 40 MG TAB PO SCH (09:45)
[2018-04-17] MEDS: ALPRAZolam 1 MG TAB PO PRN (09:47)
--- NOTE | 2018-04-17 09:56 | ECHOF ---
Referral Reason:cp MEASUREMENTS -------- HEIGHT: 172.7 cm WEIGHT: 108.9 kg BP: RVIDd: 2.4 cm (< 3.3) IVSd: 0.9 cm (0.6 - 1.1) LVIDd: 4.1 cm (3.9 - 5.3) LVPWd: 1.4 cm (0.6 - 1.1) IVSs: 1.6 cm LVIDs: 3.1 cm LVPWs: 1.3 cm LA Diam: 3.2 cm (2.7 - 3.8) Ao Diam: 2.7 cm (2.0 - 3.7) AV Cusp: 1.7 cm (1.5 - 2.6) LA Diam: 4.2 cm (2.7 - 3.8) MV EXCURSION: 19.089 mm (> 18.000) MV EF SLOPE: 74 mm/s (70 - 150) EPSS: 0.9 cm MV E Abraham: 0.68 m/s MV DecT: 195 ms MV A Abraham: 0.50 m/s MV E/A Ratio: 1.36 RAP: 5.00 mmHg RVSP: 11.28 mmHg FINDINGS -------- Sinus rhythm. This was a technically adequate study. LV size, wall thickness and systolic function are normal, with an EF greater than 55%. The left cici tricular size is normal. The right ventricle is normal in size. The left atrial size is normal. The right atrial size is normal. The aortic valve is trileaflet, and appears structurally normal. No aortic stenosis or regurgitation. Mild mitral regurgitation is present. Mild tricuspid regurgitation present. There is no evidence of pulmonary hypertension. The right v entricular systolic pressure, as measured by Doppler, is 11.28mmHg. There is no pulmonic regurgitation present. The aortic root size is normal. There is no pericardial effusion. CONCLUSIONS -------- 1. LV size, wall thickness and systolic function are normal, with an EF greater than 55%. 2. The left ventricular size is normal. 3. The right ventricle is normal in size. 4. The left atrial size is normal. 5. The right atrial size is normal. 6. The aortic valve is trileaflet, and appears structurally normal. No aortic stenosis or regurgitati on. 7. Mild mitral regurgitation is present. 8. Mild tricuspid regurgitation present. 9. There is no evidence of pulmonary hypertension. 10. The right ventricular systolic pressure, as measured by Doppler, is 11.28mmHg. 11. There is no pulmonic regurgitation present. 12. The aortic root size is normal. 13. There is no pericardial effusion. [employer]S COORDINATOR: Tonia Lance RDCS
[2018-04-17 11:51] VITALS: BP 118/71; TEMP 97.5
--- NOTE | 2018-04-17 11:58 | PN ---
PROGRESS NOTE Negin is a 53-year-old lady who was admitted to hospital with chest pain and ruled out for myocardial infarction. This morning she is doing well and is free of symptoms, had an echocardiogram that showed normal LV systolic function. Cardiac enzymes have been negative. Patient had a negative stress test in the a.m. On exam, comfortable at rest. Vital signs are stable. Chest exam reveals good air entry bilaterally. Heart exam reveals first and second heart sounds. No gallop. Exam of extremities did not reveal any edema. Peripheral pulses are felt. ASSESSMENT: Precordial chest pain, [place] ruled out. Had a recent negative stress test. I advised the patient has an elevated LDL cholesterol. I am going to start her on a statin. I advised her to lose weight, exercise regularly and watch her diet. She will be followed up in our office. MMODL / IJN: [id number] /
--- NOTE | 2018-04-17 13:16 | P.DS ---
Providers Date of admission: 04/16/18 12:35 Attending physician: Rayray Luciano MD Consults: 04/16/18 12:35 Consult Physician Urgent Consulting Provider: [facility] Consult Reason/Comments: Chest pain Do you want consulting provider notified?: Yes Primary care physician: Ivett Wilkinson [facility] Course: 53-year-old female is admitted for chest pain rule out acute coronary syndromes , patient had a recent stress test which was negative, was evaluated by cardiology. Patient's chest pain appears to be noncardiac and related to gastritis or peptic ulcer disease. Patient will be switched to Prilosec for 14 days and will be discharged today. Patient patient had an echocardiogram today which did not show any significant abnormality. PHYSICAL EXAMINATION: GENERAL: The patient is alert and oriented x3, not in any acute distress. Well developed, well nourished. HEENT: Pupils are round and equally reacting to light. EOMI. No scleral icterus. No conjunctival pallor. Normocephalic, atraumatic. No pharyngeal erythema. No thyromegaly. CARDIOVASCULAR: S1 and S2 present. No murmurs, rubs, or gallops. PULMONARY: Chest is clear to auscultation, no wheezing or crackles. ABDOMEN: Soft, nontender, nondistended, normoactive bowel sounds. No palpable organomegaly. MUSCULOSKELETAL: No joint swelling or deformity. EXTREMITIES: No cyanosis, clubbing, or pedal edema. NEUROLOGICAL: Gross neurological examination did not reveal any focal deficits. SKIN: No rashes. For the chronic medical problems hospital physician course please refer to the dictation of H&P from yesterday Plan - Discharge Summary Discharge Rx Participant: Yes New Discharge Prescriptions: New Omeprazole [PriLOSEC] 40 mg PO AC-BRKFST #14 capsule. Atorvastatin Calcium [Lipitor] 20 mg PO HS #30 tab Discontinued Ranitidine HCl [Zantac] 150 mg PO BID No Action Zolpidem [Ambien] 5 mg PO HS PRN PRN Reason: Insomnia Hydrocodone/Acetaminophen [[place] 10-325] 1 tab PO BID PRN PRN Reason: Pain ALPRAZolam [Xanax] 1 mg PO BID PRN PRN Reason: Anxiety Discharge Medication List ALPRAZolam [Xanax] 1 mg PO BID PRN 11/01/18 [History] Hydrocodone/Acetaminophen [[place] 10-325] 1 tab PO BID PRN 04/16/18 [History] Zolpidem [Ambien] 5 mg PO HS PRN 04/16/18 [History] Atorvastatin Calcium [Lipitor] 20 mg PO HS #30 tab 04/17/18 [Rx] Omeprazole [PriLOSEC] 40 mg PO AC-BRKFST #14 capsule. 04/17/18 [Rx] Follow up Appointment(s)/Referral(s): Minh Root MD [Primary Care Provider] - 3 Days (Friday, April 27 at 1: 30pm) Patient Instructions/Handouts: Chest Pain (DC), Low Fat Diet (DC), Heart Healthy Diet (DC), Cholesterol and Your Health (GEN), Lipid Profile (GEN), Mediterranean Diet (DC) Discharge Disposition: HOME SELF-CARE
[2018-04-17 15:28] LABS: Hemoglobin A1C 7.6 % (4.0-6.0)
== END 2018-04-17 12:44 | disposition home or self-care (01) ==
LOC: EC 10:30 → 1SOBS 12:35
PROVIDERS: ADMIT Internal Medicine; ATTEND Internal Medicine
DX: R07.89 Other chest pain (principal); K21.9 Gastro-esophageal reflux disease without esophagitis; R06.02 Shortness of breath; R07.2 Precordial pain; E78.00 Pure hypercholesterolemia, unspecified; M19.90 Unspecified osteoarthritis, unspecified site; R79.89 Other specified abnormal findings of blood chemistry; E66.09 Other obesity due to excess calories; Z68.36 Body mass index [BMI] 36.0-36.9, adult; G25.81 Restless legs syndrome; F41.9 Anxiety disorder, unspecified; F32.9 Major depressive disorder, single episode, unspecified; Z90.49 Acquired absence of other specified parts of digestive tract; Z98.51 Tubal ligation status; Z79.899 Other long term (current) drug therapy; Z82.49 Family history of ischemic heart disease and other diseases of the circulatory system; Z83.3 Family history of diabetes mellitus
CPT/HCPCS: 99285; 93005 ×2; 36415; 93306; 80061; 80053; 82550; 82553; 83735; 84484; 85025; 85610; 85730; 83036; 71046; G0378 ×2

== ENCOUNTER → 2018-07-17 | Outpatient (CLI) | payer MEDICARE, OTHER ==
--- NOTE | 2018-07-17 08:05 | MR ---
EXAMINATION TYPE: MR lumbar spine wo con DATE OF EXAM: 07/17/2018 COMPARISON: NONE HISTORY: Low back pain per order. Back pain into bilateral thighs per patient. TECHNIQUE: Multiplanar, multisequence imaging of the lumbar spine is performed without IV contrast. FINDINGS: Sagittal images of the lumbar spine show vertebral body heights and alignment to appear sat isfactory. The intervertebral discs demonstrate multilevel disc desiccation with disc space heights a re fairly well-maintained. No large posterior disc herniations are present on sagittal images. The co nus medullaris is normal in position and signal ending at mid L1 level . The bone marrow signal inten sity is within normal limits. Minimal multilevel anterior spurring is present. Axial images show the T12-L1 and L1-L2 levels to appear within normal limits. Axial images at L2-L3 and the L3-L4 levels show mild facet degenerative changes and ligamentum flavum hypertrophy with mild broad disc bulges minimally effacing anterior thecal sac, bilateral neural for linus are patent. Axial images at the L4-L5 level show mild to moderate right greater than left facet degenerative ferraro ges and ligamentum flavum hypertrophy. There is mild broad disc bulge minimally effacing anterior the alex sac. Bilateral neural foramina are patent. Axial images at L5-S1 level show mild facet degenerative changes bilaterally. There is mild to modera te broad disc bulge with left lateral disc protrusion component. Spinal canal is preserved. Left-side d neural foramina shows mild inferior narrowing. Right-sided neural foramen is patent. No suspicious incidental retroperitoneal findings are seen. IMPRESSION: Multilevel degenerative changes in the mid to lower lumbar spine as detailed above.
== END | disposition home or self-care (01) ==
LOC: RADMRIMAIN 07:22
PROVIDERS: ATTEND Psychiatry & Neurology Neurology
DX: M47.817 Spondylosis without myelopathy or radiculopathy, lumbosacral region (principal)
CPT/HCPCS: 72148

== ENCOUNTER 2018-08-14 17:02 | Emergency (ER) | payer MEDICARE, OTHER ==
[2018-08-14] MEDS ORDERED: MORPHINE SULFATE 2 MG/ML SYRINGE IVP STA (17:25)
[2018-08-14] MEDS ORDERED: ASPIRIN 81 MG PO STA (17:25)
[2018-08-14] MEDS ORDERED: SODIUM CHLORIDE 0.9% 500 ML 500 ML IV STA (17:25)
--- NOTE | 2018-08-14 17:33 | ED ---
General Adult HPI <Bon Kelley - Last Filed: 08/14/18 20:07> - General Source: patient, RN notes reviewed Mode of arrival: ambulatory Limitations: no limitations <Oli Gunn - Last Filed: 08/15/18 03:20> - General Chief complaint: Extremity Problem,Nontraumatic Stated complaint: Arm/finger pain Time Seen by Provider: 08/14/18 17:14 - History of Present Illness Initial comments: 53-year-old female presents to the emergency department for multiple complaints. Patient initially presents for cramping in her right hand. She states she was having symptoms in her third and fourth right fingers and then at the [place] about 1 hour ago they started to cramp up. Patient states that about since that time she has also had sharp chest pain. Patient denies any notable shortness of breath. She denies any history of MIs. No history of diabetes or hyperlipidemia. She does have history of GERD. Patient had a normal stress test 4 years ago. Patient does admit that her mother had a heart attack in her 40s but was a very unhealthy individual. Patient has no other complaints at this time including shortness of breath, abdominal pain, nausea or vomiting, headache, or visual changes. (Oli Gunn) - Related Data Home Medications Medication Instructions Recorded Confirmed ALPRAZolam [Xanax] 0.5 mg PO BID PRN 04/16/18 08/14/18 Zolpidem [Ambien] 10 mg PO HS 04/16/18 08/14/18 Ibuprofen [Motrin] 800 mg PO BID 08/14/18 08/14/18 Ranitidine HCl [Zantac] 150 mg PO BID 08/14/18 08/14/18 oxyCODONE HCL/ACETAMINOPHEN 1 tab PO BID PRN 08/14/18 08/14/18 [Percocet 7.5-325 mg] Allergies Allergy/AdvReac Type Severity Reaction Status Date / Time No Known Allergies Allergy Verified 08/14/18 18:40 Review of Systems ROS Other: All systems not noted in ROS Statement are negative. <Bon Kelley - Last Filed: 08/14/18 20:07> ROS Other: All systems not noted in ROS Statement are negative. <Oli Gunn - Last Filed: 08/15/18 03:20> ROS Statement: Those systems with pertinent positive or pertinent negative responses have been documented in the HPI. Past Medical History Past Medical History: Chest Pain / Angina, GERD/Reflux, Osteoarthritis (OA) Additional Past Medical History / Comment(s): anxiety restless leg syndrome, STRESS TEST 12-12-14(WNL) History of Any Multi-Drug Resistant Organisms: None Reported Past Surgical History: Appendectomy, Cholecystectomy, Tubal Ligation Past Anesthesia/Blood Transfusion Reactions: No Reported Reaction Past Psychological History: Anxiety, Depression Smoking Status: Never smoker Past Alcohol Use History: None Reported Past Drug Use History: None Reported - Past Family History Father Family Medical History: Diabetes Mellitus Additional Family Medical History / Comment(s): HEART DISEASE Mother Family Medical History: Myocardial Infarction ([place]) Additional Family Medical History / Comment(s): FROM [place] AT AGE 45 <Oli Gunn P - Last Filed: 08/15/18 03:20> General Exam Limitations: no limitations General appearance: alert, in no apparent distress Head exam: Present: atraumatic, normocephalic, normal inspection Eye exam: Present: normal appearance, PERRL, EOMI. Absent: scleral icterus, conjunctival injection, periorbital swelling ENT exam: Present: normal exam, mucous membranes moist Neck exam: Present: normal inspection, full ROM. Absent: tenderness, meningismus Respiratory exam: Present: normal lung sounds bilaterally, chest wall tenderness (anterior chest wall tenderness noted). Absent: respiratory distress , wheezes, rales, rhonchi, stridor Cardiovascular Exam: Present: regular rate, normal rhythm, normal heart sounds. Absent: systolic murmur, diastolic murmur, rubs, gallop, clicks GI/Abdominal exam: Present: soft, normal bowel sounds. Absent: distended, tenderness, guarding, rebound, rigid Extremities exam: Present: full ROM (full ROM of all digits in RUE.), normal capillary refill (radial pulses 2+ and equal bilat, cap refill < 2 seconds), other (sensation intact in RUE). Absent: tenderness (no significant tenderness noted to right hand), joint swelling (no edema noted to RUE) Neurological exam: Present: alert, oriented X3, CN II-XII intact Psychiatric exam: Present: normal affect, normal mood <Oli Gunn P - Last Filed: 08/15/18 03:20> Course <Bon Kelley - Last Filed: 08/14/18 20:07> <Oil Gunn - Last Filed: 08/15/18 03:20> Vital Signs 08/14/18 08/14/18 08/14/18 17:06 17:40 17:50 Temperature 97.6 F Pulse Rate 79 75 Respiratory 18 12 Rate Blood Pressure 138/85 124/76 O2 Sat by Pulse 98 97 97 Oximetry 08/14/18 08/14/18 08/14/18 18:00 18:10 18:20 Temperature Pulse Rate 72 73 Respiratory 23 8 L Rate Blood Pressure 124/76 119/74 128/80 O2 Sat by Pulse 97 97 Oximetry 08/14/18 08/14/18 08/14/18 18:30 18:40 18:50 Temperature Pulse Rate 68 68 67 Respiratory 6 L 10 L 8 L Rate Blood Pressure 128/80 120/78 128/72 O2 Sat by Pulse 97 97 97 Oximetry 08/14/18 08/14/18 08/14/18 19:00 19:10 19:50 Temperature Pulse Rate 69 Respiratory 16 Rate Blood Pressure 128/72 O2 Sat by Pulse 99 98 Oximetry 08/14/18 08/14/18 08/14/18 20:00 20:10 20:20 Temperature Pulse Rate 65 68 67 Respiratory 8 L 7 L 5 L Rate Blood Pressure O2 Sat by Pulse 99 99 99 Oximetry 08/14/18 08/14/18 20:30 21:32 Temperature 98.0 F Pulse Rate 68 68 Respiratory 9 L 18 Rate Blood Pressure 124/77 O2 Sat by Pulse 98 98 Oximetry - Reevaluation(s) Reevaluation #1: 08/14/18 20:07 PA supervision: I proceeded [id number] evaluation the patient she did present with spasms in her right upper extremity. She was anxious at the time the initial workup is negative she's had a previous cardiac workup which was unremarkable. This likely represents a musculoskeletal etiology. Also she was hypomagnesemic she will receive IV magnesium and be discharged. I do agree with assessment and plan. (Bon Kelley) EKG Findings - EKG Comments: EKG Findings:: Normal sinus rhythm, ventricular rate 75, IN interval 172, QTc 448, <Oli Gunn - Last Filed: 08/15/18 03:20> Medical Decision Making - Lab Data Result diagrams: 08/14/18 17:50 08/14/18 17:50 <Bon Kelley - Last Filed: 08/14/18 20:07> - Lab Data Result diagrams: 08/14/18 17:50 08/14/18 17:50 <Oli Gunn - Last Filed: 08/15/18 03:20> - Medical Decision Making 53-year-old female presents to the emergency department for a chief complaint of right hand cramping. Neurovascular intact in the right upper extremity. Patient was found to be hypomagnesemic, this is replaced. May have been contributing to patient's symptoms. Patient also complaining of some sharp chest pain that occurred when this cramping started. States it may be her anxiety acting up because it was very painful. CBC CMP unremarkable. Troponin less than 0.012. Urine negative. Chest x-ray unchanged from previous. EKG unremarkable and compared with study from 5 months ago. engine monitor ordered to monitor for any dysrhythmias which were not evident. Patient has undergone extensive workup in this facility for chest pain multiple times in the past year with negative outcomes. Patient reevaluated, pain significantly improved. Likely musculoskeletal in origin as she does have chest wall tenderness or related to anxiety. Patient will follow up with primary care and return if she has any worsening chest pain. (Oli Gunn) - Lab Data Lab Results 08/14/18 08/14/18 08/14/18 Range/Units 17:50 17:50 17:50 WBC 6.8 (3.8-10.6) k/uL RBC 5.01 (3.80-5.40) m/uL Hgb 14.0 (11.4-16.0) gm/dL Hct 42.5 (34.0-46.0) % MCV 84.9 (80.0-100.0) fL MCH 28.0 (25.0-35.0) pg MCHC 33.0 (31.0-37.0) g/dL RDW 14.3 (11.5-15.5) % Plt Count 252 (150-450) k/uL Neutrophils % 47 % Lymphocytes % 42 % Monocytes % 7 % Eosinophils % 2 % Basophils % 1 % Neutrophils # 3.2 (1.3-7.7) k/uL Lymphocytes # 2.8 (1.0-4.8) k/uL Monocytes # 0.5 (0-1.0) k/uL Eosinophils # 0.1 (0-0.7) k/uL Basophils # 0.1 (0-0.2) k/uL PT 9.9 (9.0-12.0) sec INR 0.9 (<1.2) APTT 23.5 (22.0-30.0) sec Sodium 136 L (137-145) mmol/L Potassium 4.2 (3.5-5.1) mmol/L Chloride 107 (98-107) mmol/L Carbon Dioxide 20 L (22-30) mmol/L Anion Gap 9 mmol/L BUN 14 (7-17) mg/dL Creatinine 0.76 (0.52-1.04) mg/dL Est GFR (CKD-EPI)AfAm >90 (>60 ml/min/1.73 sqM) Est GFR (CKD-EPI)NonAf 89 (>60 ml/min/1.73 sqM) Glucose 165 H (74-99) mg/dL Calcium 9.2 (8.4-10.2) mg/dL Phosphorus 2.8 (2.5-4.5) mg/dL Magnesium 1.5 L (1.6-2.3) mg/dL Total Bilirubin 0.4 (0.2-1.3) mg/dL AST 17 (14-36) U/L ALT 29 (9-52) U/L Alkaline Phosphatase 65 (38-126) U/L Troponin I (0.000-0.034) ng/mL Total Protein 7.0 (6.3-8.2) g/dL Albumin 4.1 (3.5-5.0) g/dL Amylase 90 (30-110) U/L Lipase 180 (23-300) U/L Urine Color Urine Appearance (Clear) Urine pH (5.0-8.0) Ur Specific [place] (1.001-1.035) Urine Protein (Negative) Urine Glucose (UA) (Negative) Urine Ketones (Negative) Urine Blood (Negative) Urine Nitrite (Negative) Urine Bilirubin (Negative) Urine Urobilinogen (<2.0) mg/dL Ur Leukocyte Esterase (Negative) 08/14/18 08/14/18 Range/Units 17:50 19:00 WBC (3.8-10.6) k/uL RBC (3.80-5.40) m/uL Hgb (11.4-16.0) gm/dL Hct (34.0-46.0) % MCV (80.0-100.0) fL MCH (25.0-35.0) pg MCHC (31.0-37.0) g/dL RDW (11.5-15.5) % Plt Count (150-450) k/uL Neutrophils % % Lymphocytes % % Monocytes % % Eosinophils % % Basophils % % Neutrophils # (1.3-7.7) k/uL Lymphocytes # (1.0-4.8) k/uL Monocytes # (0-1.0) k/uL Eosinophils # (0-0.7) k/uL Basophils # (0-0.2) k/uL PT (9.0-12.0) sec INR (<1.2) APTT (22.0-30.0) sec Sodium (137-145) mmol/L Potassium (3.5-5.1) mmol/L Chloride (98-107) mmol/L Carbon Dioxide (22-30) mmol/L Anion Gap mmol/L BUN (7-17) mg/dL Creatinine (0.52-1.04) mg/dL Est GFR (CKD-EPI)AfAm (>60 ml/min/1.73 sqM) Est GFR (CKD-EPI)NonAf (>60 ml/min/1.73 sqM) Glucose (74-99) mg/dL Calcium (8.4-10.2) mg/dL Phosphorus (2.5-4.5) mg/dL Magnesium (1.6-2.3) mg/dL Total Bilirubin (0.2-1.3) mg/dL AST (14-36) U/L ALT (9-52) U/L Alkaline Phosphatase (38-126) U/L Troponin I <0.012 (0.000-0.034) ng/mL Total Protein (6.3-8.2) g/dL Albumin (3.5-5.0) g/dL Amylase (30-110) U/L Lipase (23-300) U/L Urine Color Light Yellow Urine Appearance Clear (Clear) Urine pH 6.5 (5.0-8.0) Ur Specific [place] 1.010 (1.001-1.035) Urine Protein Negative (Negative) Urine Glucose (UA) 3+ H (Negative) Urine Ketones Negative (Negative) Urine Blood Negative (Negative) Urine Nitrite Negative (Negative) Urine Bilirubin Negative (Negative) Urine Urobilinogen <2.0 (<2.0) mg/dL Ur Leukocyte Esterase Negative (Negative) Disposition <Bon Kelley - Last Filed: 08/14/18 20:07> Is patient prescribed a controlled substance at d/c from ED?: No Time of Disposition: 19:57 <Oli Gunn - Last Filed: 08/15/18 03:20> Clinical Impression: Hypomagnesemia, Atypical chest pain, Muscle cramp Disposition: HOME SELF-CARE Condition: Good Instructions (If sedation given, give patient instructions): Hypomagnesemia (ED ), Muscle Cramp (ED) Additional Instructions: Please follow up with Dr. Root on Friday. Please return here to the emergency department if you have any worsening symptoms. Referrals: Minh Root MD [Primary Care Provider] - 1-2 days
--- NOTE | 2018-08-14 18:31 | XR ---
EXAMINATION TYPE: XR chest 2V DATE OF EXAM: 08/14/2018 COMPARISON: 04/16/2018 HISTORY: Arm pain TECHNIQUE: Frontal and lateral views of the chest are obtained. FINDINGS: There is some linear density at the right lung base. There is no heart failure. Heart size is normal. There is small linear density also left lung base. There is no pleural effusion. Bony tho rax is intact. There are chest leads. IMPRESSION: Bilateral atelectasis unchanged compared to last exam. Normal heart. No heart failure.
[2018-08-14 18:40] LABS: ALT 29 U/L (9-52); AST 17 U/L (14-36); Albumin 4.1 g/dL (3.5-5.0); Alkaline Phosphatase 65 U/L (38-126); Amylase 90 U/L (30-110); Anion Gap 9 mmol/L; Blood Urea Nitrogen 14 mg/dL (7-17); Calcium 9.2 mg/dL (8.4-10.2); Carbon Dioxide 20 mmol/L (22-30); Chloride 107 mmol/L (98-107); Glucose 165 mg/dL (74-99); Lipase 180 U/L (23-300); Magnesium 1.5 mg/dL (1.6-2.3); Phosphorus 2.8 mg/dL (2.5-4.5); Potassium 4.2 mmol/L (3.5-5.1); Sodium 136 mmol/L (137-145); Total Bilirubin 0.4 mg/dL (0.2-1.3)
[2018-08-14 18:43] LABS: Basophils # (A) 0.1 k/uL (0-0.2); Basophils % (A) 1 %; Eosinophils # (A) 0.1 k/uL (0-0.7); Eosinophils % (A) 2 %; HCT 42.5 % (34.0-46.0); Lymphocytes # (A) 2.8 k/uL (1.0-4.8); Lymphocytes % (A) 42 %; MCV 84.9 fL (80.0-100.0); Mean Platelet Volume 7.8; Monocytes # (A) 0.5 k/uL (0-1.0); Monocytes % (A) 7 %; Neutrophils # (A) 3.2 k/uL (1.3-7.7); Neutrophils % (A) 47 %; Platelet Count 252 k/uL (150-450); RBC 5.01 m/uL (3.80-5.40); RDW 14.3 % (11.5-15.5); WBC 6.8 k/uL (3.8-10.6)
[2018-08-14 18:48] LABS: INR 0.9 (<1.2); Partial Thromboplastin Time 23.5 sec (22.0-30.0); Prothrombin Time 9.9 sec (9.0-12.0)
[2018-08-14 19:31] LABS: Appearance,Urine Clear (Clear); Bilirubin,Urine Negative (Negative); Blood,Urine Negative (Negative); Color,Urine Light Yellow; Glucose,Urine (UA) 3+ (Negative); Ketones,Urine Negative (Negative); Leukocyte Esterase,Urine Negative (Negative); Nitrite,Urine Negative (Negative); PH, Urine 6.5 (5.0-8.0); Protein,Urine Negative (Negative); Urobilinogen,Urine <2.0 mg/dL (<2.0)
[2018-08-14] MEDS ORDERED: MAGNESIUM SULFATE-D5W PMX 1 GM in DEXTROSE/WATER 1 100ML.BAG IVPB ONE (19:35)
[2018-08-14 20:41] VITALS: PULSE 68
[2018-08-14 21:34] VITALS: BP 124/77; RESP 18; TEMP 98
== END 2018-08-14 21:34 | disposition home or self-care (01) ==
LOC: EC 17:02
DX: E83.42 Hypomagnesemia (principal); R07.89 Other chest pain; R25.2 Cramp and spasm; K21.9 Gastro-esophageal reflux disease without esophagitis; F41.9 Anxiety disorder, unspecified; F32.9 Major depressive disorder, single episode, unspecified; Z79.899 Other long term (current) drug therapy
CPT/HCPCS: 36415; 93005; 80053; 82150; 83690; 83735; 84100; 84484; 85025; 85610; 85730; 81003; 71046; 99285; 96365; 96375; J2270; J3475

== ENCOUNTER 2020-05-01 18:27 | Emergency (ER) | payer MEDICARE, OTHER ==
[2020-05-01 18:38] VITALS: RESP 18; TEMP 97.8
[2020-05-01] MEDS ORDERED: PANTOPRAZOLE 40 MG/10 ML VIAL IVP STA (20:05)
[2020-05-01] MEDS ORDERED: SODIUM CHLORIDE 0.9% 1,000 ML IV STA (20:05)
[2020-05-01] MEDS ORDERED: HYDROmorphone 1 MG/ML 1 ML SYRINGE IVP STA (20:06)
--- NOTE | 2020-05-01 20:09 | ED ---
General Adult HPI - General Chief complaint: Abdominal Pain Stated complaint: Back/Abd Pain Time Seen by Provider: 05/01/20 19:35 Source: patient, RN notes reviewed Mode of arrival: ambulatory Limitations: no limitations - History of Present Illness Initial comments: Patient is a pleasant 55-year-old female presenting to the emergency Department with abdominal and back discomfort. Patient states abdominal discomfort is somewhat chronic however her back is bothering her more. This is the upper abdomen and mid back. Patient does feel constipated however did have a bowel movement prior to arrival. No nausea vomiting. No diarrhea. No chest pain or dyspnea. Symptoms are somewhat severe at this time. - Related Data Home Medications Medication Instructions Recorded Confirmed ALPRAZolam [Xanax] 0.5 mg PO BID PRN 04/16/18 08/14/18 Zolpidem [Ambien] 10 mg PO HS 04/16/18 08/14/18 Ibuprofen [Motrin] 800 mg PO BID 08/14/18 08/14/18 Ranitidine HCl [Zantac] 150 mg PO BID 08/14/18 08/14/18 oxyCODONE HCL/ACETAMINOPHEN 1 tab PO BID PRN 08/14/18 08/14/18 [Percocet 7.5-325 mg] Previous Rx's Medication Instructions Recorded Cyclobenzaprine [Flexeril] 10 mg PO TID PRN #12 tablet 05/01/20 Allergies Allergy/AdvReac Type Severity Reaction Status Date / Time No Known Allergies Allergy Verified 05/01/20 18:38 Review of Systems ROS Statement: Those systems with pertinent positive or pertinent negative responses have been documented in the HPI. ROS Other: All systems not noted in ROS Statement are negative. Constitutional: Denies: fever Eyes: Denies: eye pain ENT: Denies: ear pain Respiratory: Denies: cough, dyspnea Cardiovascular: Denies: chest pain Endocrine: Denies: fatigue Gastrointestinal: Reports: as per HPI, abdominal pain, constipation. Denies: nausea, vomiting Genitourinary: Denies: dysuria, hematuria Musculoskeletal: Reports: as per HPI Skin: Denies: rash Neurological: Denies: weakness Past Medical History Past Medical History: Chest Pain / Angina, GERD/Reflux, Osteoarthritis (OA) Additional Past Medical History / Comment(s): anxiety restless leg syndrome, STRESS TEST 12-12-14(WNL) History of Any Multi-Drug Resistant Organisms: None Reported Past Surgical History: Appendectomy, Cholecystectomy, Tubal Ligation Past Anesthesia/Blood Transfusion Reactions: No Reported Reaction Past Psychological History: Anxiety, Depression Smoking Status: Never smoker Past Alcohol Use History: None Reported Past Drug Use History: None Reported - Past Family History Father Family Medical History: Diabetes Mellitus Additional Family Medical History / Comment(s): HEART DISEASE Mother Family Medical History: Myocardial Infarction ([place]) Additional Family Medical History / Comment(s): FROM [place] AT AGE 45 General Exam Limitations: no limitations General appearance: alert, in no apparent distress Head exam: Present: normocephalic Eye exam: Present: normal appearance Neck exam: Present: normal inspection Respiratory exam: Present: normal lung sounds bilaterally Cardiovascular Exam: Present: regular rate, normal rhythm Expanded Peripheral pulses: 2+: Radial (R), Radial (L), Posterior Tibialis (R), Posterior Tibialis (L) GI/Abdominal exam: Present: soft, tenderness (Mild diffuse tenderness, moderate tenderness in the epigastric), normal bowel sounds. Absent: distended, guarding, rebound, rigid, pulsatile mass Extremities exam: Present: normal inspection Back exam: Present: normal inspection. Absent: tenderness, CVA tenderness (R), CVA tenderness (L) Neurological exam: Present: alert Psychiatric exam: Present: normal affect, normal mood Skin exam: Present: normal color Course Vital Signs 05/01/20 05/01/20 18:34 21:41 Temperature 97.8 F Pulse Rate 69 70 Respiratory 18 18 Rate Blood Pressure 147/82 139/79 O2 Sat by Pulse 99 100 Oximetry EKG Findings - EKG Comments: EKG Findings:: Normal sinus rhythm at 66. HI 174. QRS 90. QT 414. QTC 434. Normal axis. Normal QRS. No acute ST change. Medical Decision Making - Medical Decision Making Patient reevaluated and resting comfortably in bed. Patient feels much better. Abdomen soft and nontender. Patient updated on results and need for follow-up. Patient states she does have a pain contract with her doctor however is receptive to receiving muscle relaxers. Patient is advised review her contract prior to having the scope. - Lab Data Result diagrams: 05/01/20 21:08 05/01/20 21:08 Lab Results 11/16/20 11/16/20 11/16/20 Range/Units 21:08 21:08 21:08 WBC 5.6 (3.8-10.6) k/uL RBC 5.11 (3.80-5.40) m/uL Hgb 14.0 (11.4-16.0) gm/dL Hct 43.6 (34.0-46.0) % MCV 85.3 (80.0-100.0) fL MCH 27.3 (25.0-35.0) pg MCHC 32.0 (31.0-37.0) g/dL RDW 13.2 (11.5-15.5) % Plt Count 252 (150-450) k/uL MPV 7.9 Neutrophils % 30 % Lymphocytes % 56 % Monocytes % 5 % Eosinophils % 6 % Basophils % 1 % Neutrophils # 1.7 (1.3-7.7) k/uL Lymphocytes # 3.1 (1.0-4.8) k/uL Monocytes # 0.3 (0-1.0) k/uL Eosinophils # 0.3 (0-0.7) k/uL Basophils # 0.1 (0-0.2) k/uL PT (9.0-12.0) sec INR (<1.2) APTT (22.0-30.0) sec Sodium 139 (137-145) mmol/L Potassium 4.2 (3.5-5.1) mmol/L Chloride 104 (98-107) mmol/L Carbon Dioxide 28 (22-30) mmol/L Anion Gap 7 mmol/L BUN 17 (7-17) mg/dL Creatinine 0.94 (0.52-1.04) mg/dL Est GFR (CKD-EPI)AfAm 78 (>60 ml/min/1.73 sqM) Est GFR (CKD-EPI)NonAf 68 (>60 ml/min/1.73 sqM) Glucose 125 H (74-99) mg/dL Calcium 9.9 (8.4-10.2) mg/dL Total Bilirubin 0.3 (0.2-1.3) mg/dL AST 21 (14-36) U/L ALT 19 (4-34) U/L Alkaline Phosphatase 92 (38-126) U/L Troponin I (0.000-0.034) ng/mL Total Protein 7.7 (6.3-8.2) g/dL Albumin 4.4 (3.5-5.0) g/dL Amylase 92 (30-110) U/L Lipase 168 (23-300) U/L Urine Color Light Yellow Urine Appearance Clear (Clear) Urine pH 6.5 (5.0-8.0) Ur Specific [place] 1.016 (1.001-1.035) Urine Protein Negative (Negative) Urine Glucose (UA) Negative (Negative) Urine Ketones Negative (Negative) Urine Blood Negative (Negative) Urine Nitrite Negative (Negative) Urine Bilirubin Negative (Negative) Urine Urobilinogen <2.0 (<2.0) mg/dL Ur Leukocyte Esterase Negative (Negative) 05/01/20 05/01/20 Range/Units 21:08 21:08 WBC (3.8-10.6) k/uL RBC (3.80-5.40) m/uL Hgb (11.4-16.0) gm/dL Hct (34.0-46.0) % MCV (80.0-100.0) fL MCH (25.0-35.0) pg MCHC (31.0-37.0) g/dL RDW (11.5-15.5) % Plt Count (150-450) k/uL MPV Neutrophils % % Lymphocytes % % Monocytes % % Eosinophils % % Basophils % % Neutrophils # (1.3-7.7) k/uL Lymphocytes # (1.0-4.8) k/uL Monocytes # (0-1.0) k/uL Eosinophils # (0-0.7) k/uL Basophils # (0-0.2) k/uL PT 9.8 (9.0-12.0) sec INR 0.9 (<1.2) APTT 24.3 (22.0-30.0) sec Sodium (137-145) mmol/L Potassium (3.5-5.1) mmol/L Chloride (98-107) mmol/L Carbon Dioxide (22-30) mmol/L Anion Gap mmol/L BUN (7-17) mg/dL Creatinine (0.52-1.04) mg/dL Est GFR (CKD-EPI)AfAm (>60 ml/min/1.73 sqM) Est GFR (CKD-EPI)NonAf (>60 ml/min/1.73 sqM) Glucose (74-99) mg/dL Calcium (8.4-10.2) mg/dL Total Bilirubin (0.2-1.3) mg/dL AST (14-36) U/L ALT (4-34) U/L Alkaline Phosphatase (38-126) U/L Troponin I <0.012 (0.000-0.034) ng/mL Total Protein (6.3-8.2) g/dL Albumin (3.5-5.0) g/dL Amylase (30-110) U/L Lipase (23-300) U/L Urine Color Urine Appearance (Clear) Urine pH (5.0-8.0) Ur Specific [place] (1.001-1.035) Urine Protein (Negative) Urine Glucose (UA) (Negative) Urine Ketones (Negative) Urine Blood (Negative) Urine Nitrite (Negative) Urine Bilirubin (Negative) Urine Urobilinogen (<2.0) mg/dL Ur Leukocyte Esterase (Negative) - Radiology Data Radiology results: image reviewed (Computed tomography scan abdomen and pelvis reveals no acute process) Disposition Clinical Impression: Abdominal pain, Back pain Disposition: HOME SELF-CARE Condition: Stable Instructions (If sedation given, give patient instructions): Abdominal Pain (ED), Back Pain (ED) Additional Instructions: Prescription for muscle relaxer sent to your pharmacy. Please review your pain contract prior to having this filled. Return for increased pain, weakness, fevers, not tolerating oral intake, worsening or changing symptoms or other concerns. Prescriptions: Cyclobenzaprine [Flexeril] 10 mg PO TID PRN #12 tablet PRN Reason: Pain Is patient prescribed a controlled substance at d/c from ED?: No Referrals: Otilia Santana MD [STAFF PHYSICIAN] - 1-2 days Time of Disposition: 22:38
[2020-05-01 21:37] LABS: Basophils # (A) 0.1 k/uL (0-0.2); Basophils % (A) 1 %; Eosinophils # (A) 0.3 k/uL (0-0.7); Eosinophils % (A) 6 %; HCT 43.6 % (34.0-46.0); Lymphocytes # (A) 3.1 k/uL (1.0-4.8); Lymphocytes % (A) 56 %; MCH 27.3 pg (25.0-35.0); MCV 85.3 fL (80.0-100.0); Mean Platelet Volume 7.9; Monocytes # (A) 0.3 k/uL (0-1.0); Monocytes % (A) 5 %; Neutrophils # (A) 1.7 k/uL (1.3-7.7); Neutrophils % (A) 30 %; Platelet Count 252 k/uL (150-450); RBC 5.11 m/uL (3.80-5.40); RDW 13.2 % (11.5-15.5); WBC 5.6 k/uL (3.8-10.6)
[2020-05-01 21:41] LABS: Appearance,Urine Clear (Clear); Bilirubin,Urine Negative (Negative); Blood,Urine Negative (Negative); Color,Urine Light Yellow; Glucose,Urine (UA) Negative (Negative); Ketones,Urine Negative (Negative); Leukocyte Esterase,Urine Negative (Negative); Nitrite,Urine Negative (Negative); PH, Urine 6.5 (5.0-8.0); Protein,Urine Negative (Negative); Specific Gravity,Urine 1.016 (1.001-1.035); Urobilinogen,Urine <2.0 mg/dL (<2.0)
[2020-05-01 21:52] LABS: Albumin 4.4 g/dL (3.5-5.0); Calcium 9.9 mg/dL (8.4-10.2); INR 0.9 (<1.2); Partial Thromboplastin Time 24.3 sec (22.0-30.0); Potassium 4.2 mmol/L (3.5-5.1); Prothrombin Time 9.8 sec (9.0-12.0); Total Bilirubin 0.3 mg/dL (0.2-1.3); Total Protein 7.7 g/dL (6.3-8.2)
--- NOTE | 2020-05-01 22:27 | CT ---
EXAMINATION TYPE: CT abdomen pelvis w con DATE OF EXAM: 05/01/2020 COMPARISON: None HISTORY: abdominal/flank pain CT DLP: 1573.9 mGycm Automated exposure control for dose reduction was used. CONTRAST: Performed with IV Contrast, patient injected with 100 mL of Isovue 300. Images obtained from the diaphragm to the floor the pelvis with IV contrast. There is minimal subsegmental atelectasis at the lung bases. There is no pleural effusion. Heart size is normal. There is no pericardial effusion. Liver spleen stomach pancreas appear normal. Bile ducts are not dilated. There clips from cholecystec melina. There is no adrenal mass. Kidneys show satisfactory contrast opacification. There is no hydronephrosi s. Ureters are not dilated. There is no retroperitoneal adenopathy. Bladder distends smoothly. There is no inguinal hernia. Uterus is anteverted. There is no free fluid in the pelvis. Delayed images pia w normal renal excretion. Lumbar vertebra have normal alignment. Posterior elements are intact. Bony pelvis is intact. Hip join ts are intact. Disc spaces are fairly normal. There is no mesenteric edema. There is no ascites or free air. There is no sign of a bowel obstructio n. Appendix is not seen. There is no sign of thickened appendix. IMPRESSION: There is minimal subsegmental atelectasis at the lung bases. No acute abnormality within the abdomen pelvis.
[2020-05-01 22:55] VITALS: BP 138/78; PULSE 68
== END 2020-05-01 22:55 | disposition home or self-care (01) ==
LOC: EC 18:27
DX: R10.9 Unspecified abdominal pain (principal); M54.9 Dorsalgia, unspecified; F41.9 Anxiety disorder, unspecified; F32.9 Major depressive disorder, single episode, unspecified; K21.9 Gastro-esophageal reflux disease without esophagitis; M19.90 Unspecified osteoarthritis, unspecified site; G25.81 Restless legs syndrome; Z79.899 Other long term (current) drug therapy; Z79.1 Long term (current) use of non-steroidal anti-inflammatories (NSAID); Z90.49 Acquired absence of other specified parts of digestive tract; Z98.51 Tubal ligation status
CPT/HCPCS: 36415; 93005; 80053; 82150; 83690; 84484; 85025; 85610; 85730; 81003; 74177; 99284; 96374; 96375; 96361; J1170; C9113; Q9967

== ENCOUNTER → 2020-06-27 | Outpatient (CLI) | payer MEDICARE, OTHER ==
[2020-06-27 08:15] VITALS: BP 139/85; PULSE 77; RESP 18; TEMP 97.9
--- NOTE | 2020-06-27 09:03 | P.HPOB ---
History of Present Illness H&P Date: 06/27/20 Chief Complaint: The patient is here for her routine gynecologic exam and ma mmogram. This is a 55-year-old with an LMP of 2018. The patient is status post tubal ligation. She is complaining of a herpes outbreak which started about 4 days ago. She states she she also had an outbreak of genital herpes last month. Prior to that, she states it is been a long time since she has had an outbreak. She was previously sexually active with somebody who had hepatitis C. She states she has not been sexually active since approximately 2017. She states she is not seeing anybody at this time. Blood STD testing in 2017 was negative and this included a negative hepatitis C antibody. She states the HSV outbreak feels like a painful blister on the right side of the external genitalia. Review of Systems The patient's weight has been stable over the past 3 years. She denies respiratory, cardiac, or G.I. problems. Past Medical History Past Medical History: Chest Pain / Angina, GERD/Reflux, Osteoarthritis (OA) Additional Past Medical History / Comment(s): anxiety restless leg syndrome, STRESS TEST 12-12-14(WNL). Chronic neck problems .Past FOUNDER history: History of genital HSV. History of Any Multi-Drug Resistant Organisms: None Reported Past Surgical History: Appendectomy, Cholecystectomy, Tubal Ligation Additional Past Surgical History / Comment(s): Colonoscopy 2012. Past Anesthesia/Blood Transfusion Reactions: No Reported Reaction Past Psychological History: Anxiety, Depression Smoking Status: Never smoker Past Alcohol Use History: None Reported Past Drug Use History: None Reported Additional History: She was previously divorce and is currently not seeing anybody for this time. She does not work outside of the home. - Past Family History Father Family Medical History: Diabetes Mellitus Additional Family Medical History / Comment(s): HEART DISEASE Mother Family Medical History: Myocardial Infarction ([place]) Additional Family Medical History / Comment(s): FROM [place] AT AGE 45 Sister(s) Family Medical History: Myocardial Infarction ([place]) Medications and Allergies Home Medications Medication Instructions Recorded Confirmed Type ALPRAZolam [Xanax] 0.5 mg PO BID PRN 04/16/18 06/27/20 History Zolpidem [Ambien] 10 mg PO HS 04/16/18 06/27/20 History Ibuprofen [Motrin] 800 mg PO BID 03/01/19 01/12/21 History oxyCODONE HCL/ACETAMINOPHEN 1 tab PO BID PRN 08/14/18 06/27/20 History [Percocet 7.5-325 mg] Omeprazole [PriLOSEC] 40 mg PO DAILY 06/27/20 06/27/20 History Allergies Allergy/AdvReac Type Severity Reaction Status Date / Time No Known Allergies Allergy Verified 06/27/20 08:06 Exam Vital Signs Temp Pulse Resp BP Pulse Ox 06/27/20 08:10 97.9 F 77 18 139/85 100 Intake and Output 06/26/20 06/27/20 06/27/20 22:59 06:59 14:59 Other: Weight 105.233 kg Height 5 feet 8 inches, weight 232 pounds, BMI 35.3. This is a well-developed well-nourished black female who is alert and oriented times 3 in no acute distress. HEENT: Within normal limits. NECK: Supple without mass or thyromegaly. CHEST AND LUNGS: Clear to auscultation. HEART: Regular rate and rhythm. BREASTS: Are without mass or discharge. AXILLARY EXAM: Negative for adenopathy. BACK: Negative for CVA tenderness. ABDOMEN: Soft, nontender, without palpable masses. PELVIC EXAM: External genitalia reveals minimal atrophy. There is a single ulcerated lesion on the right labia majora which measures approximately 5 mm with peripheral erythema. Cervix and vagina appear normal. There is no unusual discharge. There is no evidence of prolapse. The uterus is midposition, multiparous, nongravid size and nontender. There are no palpable adnexal masses or tenderness. RECTAL EXAM: Rectovaginal exam is negative for mass or tenderness and is negative for occult blood. EXTREMITIES: Nontender. IMPRESSION: 1. 55-year-old menopausal female with a secondary genital HSV outbreak. 2. History of sexual exposure to someone positive for hepatitis C in 2017. PLAN: 1. Pap smear cotest was performed. 2. Self breast awareness was discussed with the patient. 3. Screening mammogram will be done today. 4. I have recommended repeating blood STD testing including HIV, RPR, hepatitis B surface antigen, and hepatitis C antibody. This will be drawn today. 5. Osteoporosis prevention was discussed. I have stressed the importance of adequate calcium, vitamin D and regular exercise. Recommended amounts of calcium and vitamin D were also discussed. 6. Valtrex 500 mg by mouth twice a day 3 days. 5 refills will be given. The electronic prescriptions will be sent to [facility] on [facility]. The patient was instructed to start a course of Valtrex upon the first onset of symptoms of genital HSV. If she is having frequent genital HSV outbreaks, such as 6 per year, we will consider suppressive therapy with Valtrex. 7. She was advised to return in one year for her annual well woman exam and as needed.
[2020-06-27 16:41] LABS: Hepatitis B Surface Antigen Non-Reactive (Non-Reactive); Hepatitis C IgG Antibody Non-Reactive (Non-Reactive)
[2020-06-27 16:51] LABS: HIV 2 AB Non-Reactive (Non-Reactive); HIV AB P24 Non-Reactive (Non-Reactive); HIV P24 AG Non-Reactive (Non-Reactive)
--- NOTE | 2020-06-28 13:10 | MM ---
Reason for exam: screening (asymptomatic). Last mammogram was performed 4 years and 4 months ago. History: Patient is postmenopausal. Benign left mammotome panel of the left breast, November 04, 2005. Physical Findings: A clinical breast exam by your physician is recommended on an annual basis and results should be correlated with mammographic findings. MG 3D Screening Mammo W/Cad Bilateral CC and MLO view(s) were taken. Prior study comparison: February 27, 2016, bilateral MG 3d screening mammo w/cad. August 02, 2014, bilateral MG screening mammo w CAD. The breast tissue is heterogeneously dense. This may lower the sensitivity of mammography. Finding: Stable architectural distortion in the upper quadrant, posterior position of the left breast consistent with biopsy change. Previous mammotome biopsy in the left breast. There is no discrete abnormality. ASSESSMENT: Benign, BI-RAD 2 RECOMMENDATION: Routine screening mammogram of both breasts in 1 year.
--- NOTE | 2020-07-11 14:58 | P.PN ---
Progress Note - Text Progress Note Date: 07/11/20 OUTPATIENT FOLLOW-UP NOTE TEST(S)/RESULTS: test results from 06/27/2020 include negative Pap smear cotest and benign mammogram. Blood tests include negative HIV, negative RPR, negative hepatitis B surface antigen, and negative hepatitis C antibody. METHOD OF NOTIFICATION: the patient was notified by phone. PATIENT COMMENTS: the patient is happy to hear these results. After taking Valtrex, her herpes outbreak symptoms improved dramatically. DIAGNOSIS: negative Pap smear and benign mammogram. Improvement of HSV outbreak symptoms. DISCUSSION: PLAN: the patient is to return in one year for her annual well woman exam.
== END | disposition home or self-care (01) ==
LOC: WWCWWP 08:00
PROVIDERS: ATTEND Obstetrics & Gynecology
DX: Z12.31 Encounter for screening mammogram for malignant neoplasm of breast (principal); Z11.3 Encounter for screening for infections with a predominantly sexual mode of transmission
CPT/HCPCS: 77063; 77067; 86780; 86803; 87340; 87390

== ENCOUNTER → 2021-04-04 | Outpatient (CLI) | payer MEDICARE, OTHER ==
[2021-04-04 08:43] VITALS: BP 137/86; PULSE 89; RESP 16; TEMP 98.3
--- NOTE | 2021-04-04 09:37 | P.PN ---
Progress Note - Text Progress Note Date: 04/04/21 Chief Complaint: Vulvar itching 6 days HPI: This is a 56-year-old with an LMP of 2018. The patient has noticed intense vulvar itching which started 6 days ago. She tried using Vagisil OTC which did not help. She denies vulvar itching and also denies vaginal discharge. She denies vaginal odor, vulvar blisters or fever. She denies any UTI symptoms. She called her PCP regarding her symptoms and was treated with Diflucan 1 dose 2 days ago. She states the vulvar itching has improved somewhat. The patient states she has been with her boyfriend on and off for one year. She denies any other sexual partners during this past year. She does not believe that her partner has had other sexual partners while they have been together during the past year. She states she has used condoms every time when they have been sexually active. ROS: She denies respiratory or cardiac problems. GI: She has been having issues with constipation, but this is a chronic problem. : as above. She denies UTI symptoms. PE: Blood pressure: 137/86, Height: 5 feet 8 inches, Weight: 232 pounds, T emperature: 98.3, Pulse: 89. Pulse oximeter 97%. This is a well developed, well nourished, black female who is alert and orientedx3, in no acute distress. Abdomen: Soft, nontender without palpable masses. Pelvic exam: External genitalia reveals minimal erythema with no focal lesions. There are no ulcerations or areas of broken skin. Cervix and vagina reveal a minimal amount of whitish discharge without odor. There are no vaginal or cervical lesions. There is no cervical motion tenderness. The uterus is mid positioned, nongravid size, and nontender. There are no palpable adnexal masses or tenderness. Impression: 1. 56-year-old menopausal female with a 58 history of vulvar pruritus which improved somewhat with Diflucan taking 2 days ago. Differential diagnosis will include partially treated candidal vaginitis, bacterial vaginosis, Trichomonas, and noninfectious vulvitis. The symptoms and findings are not consistent with genital herpes outbreak. Plan: 1. Affirm vaginitis panel was obtained from the vagina. This will check for trisha, Gardnerella, and Trichomonas. 2. If the above panel is negative and symptoms are much improved, consider no treatment. If the panel is negative and she continues to have vulvar pruritus, consider Kenalog cream. Positive results will be treated accordingly. 3. I have stressed the importance of trying not to over wash with soap, to a void chlorinated water such as in poles or hot tubs, and to try to avoid scratching rubbing. 4. She will return in approximately 3-4 months for her annual well woman examination and as needed. Time spent with the patient: 25 minutes
[2021-04-05 15:31] LABS: Gardnerella Negative (Negative); Source Vagina; Trichomonas Negative (Negative)
== END ==
LOC: WWCWWP 08:32
PROVIDERS: ATTEND Obstetrics & Gynecology
DX: L29.2 Pruritus vulvae (principal)
CPT/HCPCS: 87480; 87510; 87660

== ENCOUNTER → 2021-06-05 | Outpatient (CLI) | payer MEDICARE, OTHER ==
[2021-06-05 11:51] VITALS: BP 129/84; PULSE 79; RESP 18; TEMP 98
--- NOTE | 2021-06-05 12:46 | P.PN ---
Progress Note - Text Progress Note Date: 06/05/21 Chief Complaint: Recurrent vulvar itching HPI: This is a 56-year-old with an LMP of 2018. The patient was seen about 2 months ago for vulvar itching. She had been treated with Diflucan and symptoms had improved prior to seeing me. Affirm vaginitis panel was negative at that time. It was felt that this probably was a partially treated yeast infection. She states a couple weeks after seeing me, she had recurrent vulvar itching. She denies vaginal itching, discharge, or odor. She denies dysuria or urinary tract infection symptoms. Several weeks ago she was treated again with Diflucan which seemed to temporarily helped but the vulvar symptoms including itching and burning persist. On the left side, the vulva itches more anteriorly. In the right perineal area it feels like the skin is tearing slightly. The patient states she has had more HSV outbreaks symptoms during the past year than she has ever had. She believes she has had 6-8 outbreaks in the past year. ROS: She denies respiratory, cardiac, or GI problems. She denies UTI symptoms. PE: Blood pressure: 129/84, Height: 5 feet 8-1/2 inches, Weight: 230 pounds, Temperature: 98.0, Pulse: 79. Pulse oximeter 97%. This is a well developed, well nourished, heavyset black female who is alert and orientedx3, in no acute distress. External genitalia: There is minimal atrophy. On the left labia majora, there is a slightly reddened area without ulceration or excoriation. This is approximately 2 cm from the clitoris. Along the right perineal area there is slight ulceration and "paper cut" type findings measuring approximately 3 x 1 mm.. Cervix and vagina appear normal with minimal amount of grayish thin discharge without odor. Impression: 1. 56-year-old menopausal female with vulvar pruritus and burning with evidence of mild vulvitis and possible right perineal HSV changes. 2. Recurrent frequent genital HSV outbreaks during the past year. Plan: 1. Affirm vaginitis panel was obtained from the vagina. GC and Chlamydia testing was obtained from the cervix. HSV testing was obtained from the sl ightly ulcerated region in the right perineal area. 2. Valtrex 500 mg by mouth twice a day 3 days. She will then take 1 daily as a suppressive regimen. 3. Kenalog 0.1% cream twice a day when necessary for vulvar pruritus. These prescriptions will be sent to [facility] pharmacy on [facility]. 4. She will return for her annual well woman appointment which is due in 1-2 months and as needed. Time spent with the patient: 25 minutes
[2021-06-06 11:32] LABS: Gardnerella Negative (Negative); Source Vagina; Trichomonas Negative (Negative)
--- NOTE | 2021-06-06 13:27 | P.PN ---
Progress Note - Text Progress Note Date: 06/06/21 OUTPATIENT FOLLOW-UP NOTE TEST(S)/RESULTS: Affirm vaginitis panel was negative for Farnaz, Gardnerella, and Trichomonas. This was done on 06/05/2021. METHOD OF NOTIFICATION: She was notified by phone. PATIENT COMMENTS: DIAGNOSIS: Negative affirm vaginitis panel. DISCUSSION: Await GC and chlamydia results PLAN: Kenalog cream and Valtrex as directed. Call if symptoms are not improving or if problems.
== END ==
LOC: WWCWWP 11:25
PROVIDERS: ATTEND Obstetrics & Gynecology
DX: L29.2 Pruritus vulvae (principal); N76.2 Acute vulvitis; B00.9 Herpesviral infection, unspecified
CPT/HCPCS: 87480; 87491; 87510; 87529; 87591; 87660

== ENCOUNTER 2021-06-14 12:04 | Emergency (ER) | payer MEDICARE, OTHER ==
--- NOTE | 2021-06-14 13:00 | ED ---
General Adult HPI - General Chief complaint: Chest Pain Stated complaint: Chest Pain Time Seen by Provider: 06/14/21 12:48 Source: patient, RN notes reviewed, old records reviewed Mode of arrival: wheelchair - History of Present Illness Initial comments: 48-year-old female with intermittent chest pain. The pain was present last week however this resolved without treatment. This was right upper chest pain. Not worse with movement, not worse with deep breathing. No cough or fever. No central chest pain. No previous history of CAD. No previous history of DVT or PE. No dyspnea. Pain does not radiate. No vomiting. - Related Data Home Medications Medication Instructions Recorded Confirmed Ibuprofen [Motrin] 800 mg PO BID PRN 08/14/18 06/14/21 oxyCODONE HCL/ACETAMINOPHEN 1 tab PO TID 08/14/18 06/14/21 [Percocet 7.5-325 mg] Atorvastatin [Lipitor] 10 mg PO HS 06/14/21 06/14/21 Baclofen [Lioresal] 10 mg PO BID PRN 06/14/21 06/14/21 Famotidine 40 mg PO HS 06/14/21 06/14/21 Multivitamins, Thera [Multivitamin 1 tab PO DAILY 06/14/21 06/14/21 (formulary)] Triamcinolone 0.1% Cream [Kenalog 1 applic TOPICAL BID PRN 06/14/21 06/14/21 0.1% Cream] busPIRone HCL [Buspar] 7.5 mg PO BID 06/14/21 06/14/21 hydrOXYzine HCL [Atarax] 25 - 50 mg PO HS 06/14/21 06/14/21 valACYclovir [Valtrex] 500 mg PO DAILY 06/14/21 06/14/21 Allergies Allergy/AdvReac Type Severity Reaction Status Date / Time No Known Allergies Allergy Verified 06/14/21 15:26 Review of Systems ROS Statement: Those systems with pertinent positive or pertinent negative responses have been documented in the HPI. ROS Other: All systems not noted in ROS Statement are negative. Past Medical History Past Medical History: Chest Pain / Angina, GERD/Reflux, Osteoarthritis (OA) Additional Past Medical History / Comment(s): anxiety restless leg syndrome, STRESS TEST 12-12-14(WNL) History of Any Multi-Drug Resistant Organisms: None Reported Past Surgical History: Appendectomy, Cholecystectomy, Tubal Ligation Additional Past Surgical History / Comment(s): Colonoscopy 2012. Past Anesthesia/Blood Transfusion Reactions: No Reported Reaction Past Psychological History: Anxiety, Depression Smoking Status: Never smoker Past Alcohol Use History: None Reported Past Drug Use History: None Reported - Past Family History Father Family Medical History: Diabetes Mellitus Additional Family Medical History / Comment(s): HEART DISEASE Mother Family Medical History: Myocardial Infarction ([place]) Additional Family Medical History / Comment(s): FROM [place] AT AGE 45 Sister(s) Family Medical History: Myocardial Infarction ([place]) General Exam General appearance: alert, in no apparent distress Head exam: Present: atraumatic, normocephalic Eye exam: Present: normal appearance, PERRL ENT exam: Present: normal exam Neck exam: Present: normal inspection. Absent: tenderness, meningismus Respiratory exam: Present: normal lung sounds bilaterally, chest wall tenderness. Absent: respiratory distress, wheezes Cardiovascular Exam: Present: regular rate, normal rhythm GI/Abdominal exam: Present: soft. Absent: distended, tenderness Extremities exam: Present: normal inspection, normal capillary refill. Absent: pedal edema, calf tenderness Neurological exam: Present: alert, oriented X3, CN II-XII intact. Absent: motor sensory deficit Psychiatric exam: Present: normal affect, normal mood Skin exam: Present: warm, dry, intact. 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 No ST segment elevation. Medical Decision Making - Medical Decision Making 56-year-old female presenting with right upper chest pain. Pain is reproducible on exam. Patient was significantly concerned about her heart and her for EKG, chest x-ray and laboratory testing was obtained. Her EKG was without ST segment elevation. Chest x-ray showing some linear atelectasis, no other acute findings. She has a normal CBC, normal CMP with the exception of a elevated blood glucose. The patient is informed of this she admits that she has been eating a lot of sweets over the past week. She will follow with her primary care physician regarding this elevated blood sugar in the possibility of diabetes. Her d-dimer and troponin are negative. I did offer this patient observation for repeat troponin testing and cardiology consultation. She states she has an appointment on Friday which is 2 days from now with a drink box mechanic. She prefers to return if anything was to change or worsen. - Lab Data Result diagrams: 06/14/21 13:33 06/14/21 13:33 Lab Results 06/14/21 06/14/21 06/14/21 Range/Units 13:33 13:33 13:33 WBC 5.2 (3.8-10.6) k/uL RBC 5.19 (3.80-5.40) m/uL Hgb 14.1 (11.4-16.0) gm/dL Hct 45.2 (34.0-46.0) % MCV 87.1 (80.0-100.0) fL MCH 27.2 (25.0-35.0) pg MCHC 31.2 (31.0-37.0) g/dL RDW 13.5 (11.5-15.5) % Plt Count 254 (150-450) k/uL MPV 8.1 Neutrophils % 37 % Lymphocytes % 51 % Monocytes % 7 % Eosinophils % 3 % Basophils % 1 % Neutrophils # 1.9 (1.3-7.7) k/uL Lymphocytes # 2.7 (1.0-4.8) k/uL Monocytes # 0.3 (0-1.0) k/uL Eosinophils # 0.2 (0-0.7) k/uL Basophils # 0.0 (0-0.2) k/uL Hypochromasia Slight PT 10.2 (9.0-12.0) sec INR 0.9 (<1.2) APTT 22.8 (22.0-30.0) sec D-Dimer 0.39 (<0.60) mg/L FEU Sodium 135 L (137-145) mmol/L Potassium 4.4 (3.5-5.1) mmol/L Chloride 103 (98-107) mmol/L Carbon Dioxide 23 (22-30) mmol/L Anion Gap 9 mmol/L BUN 16 (7-17) mg/dL Creatinine 0.92 (0.52-1.04) mg/dL Est GFR (CKD-EPI)AfAm 80 (>60 ml/min/1.73 sqM) Est GFR (CKD-EPI)NonAf 69 (>60 ml/min/1.73 sqM) Glucose 355 H (74-99) mg/dL Calcium 9.9 (8.4-10.2) mg/dL Magnesium 1.6 (1.6-2.3) mg/dL Total Bilirubin 0.5 (0.2-1.3) mg/dL AST 22 (14-36) U/L ALT 23 (4-34) U/L Alkaline Phosphatase 111 (38-126) U/L Troponin I (0.000-0.034) ng/mL Total Protein 7.5 (6.3-8.2) g/dL Albumin 4.2 (3.5-5.0) g/dL 06/14/21 Range/Units 13:33 WBC (3.8-10.6) k/uL RBC (3.80-5.40) m/uL Hgb (11.4-16.0) gm/dL Hct (34.0-46.0) % MCV (80.0-100.0) fL MCH (25.0-35.0) pg MCHC (31.0-37.0) g/dL RDW (11.5-15.5) % Plt Count (150-450) k/uL MPV Neutrophils % % Lymphocytes % % Monocytes % % Eosinophils % % Basophils % % Neutrophils # (1.3-7.7) k/uL Lymphocytes # (1.0-4.8) k/uL Monocytes # (0-1.0) k/uL Eosinophils # (0-0.7) k/uL Basophils # (0-0.2) k/uL Hypochromasia PT (9.0-12.0) sec INR (<1.2) APTT (22.0-30.0) sec D-Dimer (<0.60) mg/L FEU Sodium (137-145) mmol/L Potassium (3.5-5.1) mmol/L Chloride (98-107) mmol/L Carbon Dioxide (22-30) mmol/L Anion Gap mmol/L BUN (7-17) mg/dL Creatinine (0.52-1.04) mg/dL Est GFR (CKD-EPI)AfAm (>60 ml/min/1.73 sqM) Est GFR (CKD-EPI)NonAf (>60 ml/min/1.73 sqM) Glucose (74-99) mg/dL Calcium (8.4-10.2) mg/dL Magnesium (1.6-2.3) mg/dL Total Bilirubin (0.2-1.3) mg/dL AST (14-36) U/L ALT (4-34) U/L Alkaline Phosphatase (38-126) U/L Troponin I <0.012 (0.000-0.034) ng/mL Total Protein (6.3-8.2) g/dL Albumin (3.5-5.0) g/dL Disposition Clinical Impression: Elevated blood sugar, Atypical chest pain Disposition: HOME SELF-CARE Condition: Fair Instructions (If sedation given, give patient instructions): Chest Pain (ED) Additional Instructions: Please follow up with her primary care physician regarding elevated blood sugar and the possibility of diabetes. Please return to the emergency department with any worsening or changing symptoms. Please follow up with cardiology on Friday as planned. Is patient prescribed a controlled substance at d/c from ED?: No Referrals: Minh Root MD [Primary Care Provider] - 1-2 days Time of Disposition: 15:39
--- NOTE | 2021-06-14 13:23 | XR ---
EXAMINATION TYPE: XR chest 2V DATE OF EXAM: 06/14/2021 COMPARISON: 08/14/2018 TECHNIQUE: PA and lateral views submitted. HISTORY: Chest pain FINDINGS: The lungs are clear and there is no pneumothorax, pleural effusion, or focal pneumonia. Subsegmental linear changes at both lung bases most typical of atelectasis. Sclerotic density overlying left scap dorita is nonspecific could represent small bone. Heart size normal. No overt failure. Surgical clips in the abdomen. Hypertrophic change of the spine. IMPRESSION: 1. Bilateral lower lobe subsegmental consolidation. Findings of the right are similar to the prior ex am and may represent chronic scarring or atelectasis. Correlate clinically
[2021-06-14 13:59] LABS: Basophils % (A) 1 %; Eosinophils # (A) 0.2 k/uL (0-0.7); Eosinophils % (A) 3 %; HCT 45.2 % (34.0-46.0); HGB 14.1 gm/dL (11.4-16.0); Hypochromasia Slight; Lymphocytes # (A) 2.7 k/uL (1.0-4.8); Lymphocytes % (A) 51 %; MCH 27.2 pg (25.0-35.0); MCHC 31.2 g/dL (31.0-37.0); MCV 87.1 fL (80.0-100.0); Mean Platelet Volume 8.1; Monocytes # (A) 0.3 k/uL (0-1.0); Monocytes % (A) 7 %; Neutrophils # (A) 1.9 k/uL (1.3-7.7); Neutrophils % (A) 37 %; Platelet Count 254 k/uL (150-450); RBC 5.19 m/uL (3.80-5.40); RDW 13.5 % (11.5-15.5); WBC 5.2 k/uL (3.8-10.6)
[2021-06-14 14:17] LABS: Albumin 4.2 g/dL (3.5-5.0); Calcium 9.9 mg/dL (8.4-10.2); Magnesium 1.6 mg/dL (1.6-2.3); Potassium 4.4 mmol/L (3.5-5.1); Total Bilirubin 0.5 mg/dL (0.2-1.3); Total Protein 7.5 g/dL (6.3-8.2)
[2021-06-14 14:21] LABS: INR 0.9 (<1.2); Partial Thromboplastin Time 22.8 sec (22.0-30.0); Prothrombin Time 10.2 sec (9.0-12.0)
[2021-06-14 16:00] VITALS: BP 168/88; PULSE 83; RESP 16; TEMP 97.1
== END 2021-06-14 15:51 | disposition home or self-care (01) ==
LOC: EC 12:04
DX: R07.89 Other chest pain (principal); R73.9 Hyperglycemia, unspecified; M19.90 Unspecified osteoarthritis, unspecified site; F41.9 Anxiety disorder, unspecified; F32.A Depression, unspecified; Z90.49 Acquired absence of other specified parts of digestive tract; Z98.51 Tubal ligation status
CPT/HCPCS: 36415; 71046; 80053; 83036; 83735; 84484; 85025; 85379; 85610; 85730; 93005; 99285

== ENCOUNTER 2021-08-23 06:30 | Day surgery (SDC) | payer MEDICARE, OTHER ==
[2021-08-22 09:46] VITALS: BMI 33.1
[~2021-08-23 06:30] MED LIST: ALPRAZolam 0.25 MG TAB PO PRN; ALPRAZolam 0.5 MG TAB PO PRN; ASPIRIN 325 MG TAB PO STA; ATORVASTATIN 80 MG TAB PO STA; HEPARIN SODIUM,PORCINE 10,000 UNIT in SODIUM CHLORIDE 0.9% 1,000 ML IRRIGATION PRN; HEPARIN SODIUM,PORCINE 2,500 UNIT in SODIUM CHLORIDE 0.9% 250 ML IRRIGATION PRN; NITROGLYCERIN SL TABS 0.4 MG TAB SUBLINGUAL PRN; SODIUM CHLORIDE 0.9% 1,000 ML in EMPTY BAG 1 BAG IV SCH
[2021-08-23] MEDS ORDERED: SODIUM CHLORIDE 0.9% 1,000 ML IV ONE (06:38)
[2021-08-23 07:01] LABS: Glucose,Whole Blood 119 mg/dL (75-99)
[2021-08-23 07:02] VITALS: RESP 16; TEMP 98
[2021-08-23 07:08] LABS: Basophils % (A) 1 %; Eosinophils # (A) 0.3 k/uL (0-0.7); Eosinophils % (A) 5 %; HCT 39.4 % (34.0-46.0); HGB 12.8 gm/dL (11.4-16.0); Lymphocytes # (A) 3.3 k/uL (1.0-4.8); Lymphocytes % (A) 53 %; MCH 27.4 pg (25.0-35.0); MCHC 32.4 g/dL (31.0-37.0); MCV 84.5 fL (80.0-100.0); Mean Platelet Volume 7.7; Monocytes # (A) 0.4 k/uL (0-1.0); Monocytes % (A) 6 %; Neutrophils # (A) 2.1 k/uL (1.3-7.7); Neutrophils % (A) 33 %; Platelet Count 260 k/uL (150-450); RBC 4.67 m/uL (3.80-5.40); RDW 13.8 % (11.5-15.5); WBC 6.3 k/uL (3.8-10.6)
[2021-08-23] MEDS ORDERED: LIDOCAINE 1% INJ 10MG/ML (20 ML MDV) ONE (07:13)
[2021-08-23] MEDS ORDERED: VERAPAMIL 2.5 MG/ML 2 ML AMP ONE (07:14)
[2021-08-23 07:18] LABS: Calcium 9.4 mg/dL (8.4-10.2)
[2021-08-23 07:26] LABS: Potassium 4.4 mmol/L (3.5-5.1)
[2021-08-23] MEDS ORDERED: HEPARIN SODIUM 1,000 UN/ML (10ML VL) ONE (07:47)
[2021-08-23] MEDS: MIDAZOLAM 2 MG/2 ML VIAL IV ONE ×2 (07:49→07:57)
[2021-08-23] MEDS ORDERED: LIDOCAINE 1% INJ 10MG/ML (20 ML MDV) SQ ONE (07:52)
[2021-08-23] MEDS: VERAPAMIL SYRINGE (5 MG/10 ML) INTRAARTER ONE ×2 (07:53→08:05)
[2021-08-23] MEDS ORDERED: HEPARIN SODIUM 1,000 UN/ML (10ML VL) IV ONE (07:57)
[2021-08-23] MEDS ORDERED: IOPAMIDOL-370 125ML BTL INJ ONE (08:05)
[2021-08-23] MEDS ORDERED: RX INFO: IV CONTRAST WAS GIVEN 1 EACH MISC MISCELLANE PRN (08:07)
--- NOTE | 2021-08-23 08:13 | P.PCN ---
Date of Procedure: 08/23/21 Operative Findings: CARDIAC CATHETERIZATION PERFORMING PHYSICIAN: Tushar Dang MD, RPVI PROCEDURE PERFORMED: 1. Selective right and left coronary angiogram INDICATION: The patient is a 56-year-old female patient with hypertension and dyslipidemia was experiencing chest discomfort and underwent myocardial perfusion imaging stenosis and that revealed anterior ischemia. In the light of that heart catheterization was advised COMPLICATION: None APPROACH: Right radial artery LEVEL OF SEDATION: Moderate with a sedation length of 14 minutes PROCEDURE DESCRIPTION: After obtaining an informed consent, the patient was brought to cardiac cath lab nurse. Local anesthesia was performed using lidocaine subcutaneously. The right radial artery was cannulated using Seldinger technique, the guidewire passed easily, following that we advanced a 5-Romanian sheath dilator assembly, the wire and dilator were removed and sheath was flushed. Following that, 2 mg of verapamil along with 5000 unit heparin were given. Selective right and left coronary angiogram using a 6-Romanian JR4 and JL 3.5 catheters. The procedure was completed there was no complication. SELECTIVE CORONARY ANGIOGRAM: The right coronary artery: Is a large caliber vessel and a dominant vessel. Its angiographically normal. Distally bifurcates into PDA and PLV branches both appeared to be angiographically normal Left main: Is angiographically normal. Bifurcates into the LCx and LAD The left circumflex: Is a large caliber vessel nondominant vessel. The LCx is angiographically normal. Gives rises into the first second and third obtuse marginal branch and all appeared to be angiographically normal The left anterior descending artery: Is a large caliber vessel. Its angiographically normal. It gives rises into multiple diagonal branches APPEARED to in the range of small to medium caliber vessel and APPEARED to be angiographically normal CONCLUSION: 1. Normal coronary angiogram POSTPROCEDURE MANAGEMENT: Medical treatment
[2021-08-23] MEDS ORDERED: SODIUM CHLORIDE 0.9% 1,000 ML IV SCH (08:15)
[2021-08-23 12:23] VITALS: BP 128/82; PULSE 63
== END 2021-08-23 13:27 | disposition home or self-care (01) ==
LOC: CATHCVL 06:30
PROVIDERS: ATTEND Internal Medicine Interventional Cardiology
DX: I99.8 Other disorder of circulatory system (principal); I10 Essential (primary) hypertension; E78.5 Hyperlipidemia, unspecified; Z20.822 Contact with and (suspected) exposure to COVID-19
CPT/HCPCS: 93454; 80048; 85025; 87635; C1894; J2250; J2001; J1644; Q9967

== ENCOUNTER 2023-04-24 00:03 | Observation (INO) | payer MEDICARE, OTHER ==
[2023-04-24 00:52] LABS: Basophils % (A) 1 %; Eosinophils # (A) 0.1 k/uL (0-0.7); Eosinophils % (A) 2 %; HCT 43.3 % (34.0-46.0); HGB 13.8 gm/dL (11.4-16.0); Lymphocytes % (A) 49 %; MCH 26.6 pg (25.0-35.0); MCV 83.2 fL (80.0-100.0); Mean Platelet Volume 8.3; Monocytes # (A) 0.4 k/uL (0-1.0); Monocytes % (A) 7 %; Neutrophils # (A) 2.4 k/uL (1.3-7.7); Neutrophils % (A) 39 %; Platelet Count 254 k/uL (150-450); RBC 5.21 m/uL (3.80-5.40); RDW 14.1 % (11.5-15.5); WBC 6.1 k/uL (3.8-10.6)
[2023-04-24 01:08] LABS: ALT 16 U/L (4-34); AST 19 U/L (14-36); African American GFR (CKD) 82 (>60 ml/min/1.73 sqM); Albumin 3.9 g/dL (3.5-5.0); Alkaline Phosphatase 63 U/L (38-126); Anion Gap 10 mmol/L; Blood Urea Nitrogen 24 mg/dL (7-17); Calcium 9.3 mg/dL (8.4-10.2); Carbon Dioxide 21 mmol/L (22-30); Chloride 108 mmol/L (98-107); Glucose 112 mg/dL (74-99); Magnesium 1.8 mg/dL (1.6-2.3); Non-African American GFR(CKD) 71 (>60 ml/min/1.73 sqM); Potassium 3.8 mmol/L (3.5-5.1); Sodium 139 mmol/L (137-145); Total Bilirubin 0.5 mg/dL (0.2-1.3); Total Protein 6.3 g/dL (6.3-8.2)
[2023-04-24 01:13] LABS: INR 0.9 (<1.2); Partial Thromboplastin Time 23.7 sec (22.0-30.0); Prothrombin Time 10.4 sec (10.0-12.5)
[2023-04-24] MEDS ORDERED: ASPIRIN 81 MG PO STA (03:00)
--- NOTE | 2023-04-24 03:08 | ED ---
Chest Pain HPI - General Chief Complaint: Chest Pain Stated Complaint: Chest Pain, Lower Back pain Time Seen by Provider: 04/24/23 01:49 Source: patient Mode of arrival: wheelchair Limitations: no limitations - History of Present Illness Initial Comments: 58-year-old female presenting with chief complaint of chest pain. Pain is been ongoing for 4 days. Located primarily on the left side of the chest. No radiation of the neck or down the arm. She states that she does. Mild shortness of breath upon exertion. No palpitations. No nausea, vomiting, abdominal pain. No cough, congestion, sore throat, fever, chills. No palpitations. No weakness. Patient does also admit to lower back pain, no injury or trauma. No radiation down the legs. No loss of bowel or bladder control or saddle paresthesia. - Related Data Home Medications Medication Instructions Recorded Confirmed oxyCODONE HCL/ACETAMINOPHEN 1 tab PO TID PRN 08/14/18 04/24/23 [Percocet 7.5-325 mg] Atorvastatin [Lipitor] 10 mg PO HS 06/14/21 04/24/23 Famotidine 40 mg PO DAILY 06/14/21 04/24/23 Metoprolol Succinate (ER) [Toprol 25 mg PO HS 08/22/21 04/24/23 XL] metFORMIN HCL [Glucophage] 500 mg PO BID 08/22/21 04/24/23 sitaGLIPtin PHOSPHATE [Januvia] 100 mg PO DAILY 08/22/21 04/24/23 Cinnamon Bark [Cinnamon] 1,000 mg PO DAILY 04/24/23 04/24/23 Naloxone HCl [Narcan] 4 mg NASAL DIRECTED PRN 04/24/23 04/24/23 busPIRone HCL [Buspar] 7.5 mg PO BID 04/24/23 04/24/23 Previous Rx's Medication Instructions Recorded amLODIPine [Norvasc] 5 mg PO DAILY #60 tab 04/24/23 Allergies Allergy/AdvReac Type Severity Reaction Status Date / Time No Known Allergies Allergy Verified 04/24/23 07:16 Review of Systems ROS Statement: Those systems with pertinent positive or pertinent negative responses have been documented in the HPI. ROS Other: All systems not noted in ROS Statement are negative. EKG Findings - EKG Comments: EKG Findings:: Sinus rhythm ventricular rate 66. CT interval 159. QRS 106. QT 408. QTC 422. No ischemic changes. Past Medical History Past Medical History: Chest Pain / Angina, Diabetes Mellitus, GERD/Reflux, Hyperlipidemia, Osteoarthritis (OA) Additional Past Medical History / Comment(s): restless leg syndrome, hx migraines, hx anemia, chronic neck problems. 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 History of Any Multi-Drug Resistant Organisms: None Reported Past Surgical History: Appendectomy, Cholecystectomy, Tubal Ligation Additional Past Surgical History / Comment(s): Colonoscopy 2012. Past Anesthesia/Blood Transfusion Reactions: No Reported Reaction Past Psychological History: Anxiety Smoking Status: Never smoker Past Alcohol Use History: None Reported Past Drug Use History: None Reported - Past Family History Father Family Medical History: Diabetes Mellitus Additional Family Medical History / Comment(s): HEART DISEASE Mother Family Medical History: Myocardial Infarction ([place]) Additional Family Medical History / Comment(s): FROM [place] AT AGE 45 Sister(s) Family Medical History: Myocardial Infarction ([place]) General Exam Limitations: no limitations General appearance: alert, in no apparent distress Head exam: Present: atraumatic, normocephalic, normal inspection Eye exam: Present: normal appearance, EOMI Neck exam: Present: normal inspection, full ROM Respiratory exam: Present: normal lung sounds bilaterally. Absent: respiratory distress, wheezes, rales, rhonchi, stridor Cardiovascular Exam: Present: regular rate, normal rhythm, normal heart sounds. Absent: systolic murmur, diastolic murmur, rubs, gallop, clicks Neurological exam: Present: alert, oriented X3 Psychiatric exam: Present: normal affect, normal mood Skin exam: Present: warm, dry, intact, normal color. Absent: rash Course Vital Signs 04/24/23 04/24/23 00:04 02:04 Temperature 97.9 F Pulse Rate 65 78 Respiratory 18 16 Rate Blood Pressure 145/87 128/78 O2 Sat by Pulse 96 97 Oximetry Chest Pain MDM - MDM Was pt. sent in by a medical professional or institution (, PA, AFTER SCHOOL PROGRAM ASSISTANT, urgent care, hospital, or fdc...) When possible be specific @ -No Did you speak to anyone other than the patient for history (EMS, parent, family, police, friend...)? What history was obtained from this source @ -No Did you review nursing and triage notes (agree or disagree)? Why? @ -I reviewed and agree with nursing and triage notes Were old charts reviewed (outside hosp., previous admission, EMS record, old EKG, old radiological studies, urgent care reports/EKG's, fdc records)? Report findings @ -No old charts were reviewed Differential Diagnosis (chest pain, altered mental status, abdominal pain women, abdominal pain men, vaginal bleeding, weakness, fever, dyspnea, syncope, headache, dizziness, GI bleed, back pain, seizure, CVA, palpatations, mental health, musculoskeletal)? @ -MDM Differential Chest Pain: Stable Angina, Unstable Angina, STEMI, NSTEMI Aortic Dissection, Pneumothorax, Musculoskeletal, Esophageal Spasm GERD, Cholecystitis, Pancreatitis, Zoster This is not meant to be an all-inclusive list. EKG interpreted by me (3pts min.). @ -As above X-rays interpreted by me (1pt min.). @ -Chest x-ray shows mild bibasilar platelike atelectasis versus scarring. No pneumonia CT interpreted by me (1pt min.). @ -None done U/S interpreted by me (1pt. min.). @ -None done What testing was considered but not performed or refused? (CT, X-rays, U/S, labs)? Why? @ -None What meds were considered but not given or refused? Why? @ -None Did you discuss the management of the patient with other professionals (professionals i.e. , PA, AFTER SCHOOL PROGRAM ASSISTANT, lab, RT, psych nurse, drug abuse social worker, hybrid technologist, teacher, county health officer, spring encaser)? Give summary @ -I spoke with Dr. Chin who accepted admission Was smoking cessation discussed for >3mins.? @ -No Was critical care preformed (if so, how long)? @ -No Were there social determinants of health that impacted care today? How? (Homelessness, low income, unemployed, alcoholism, drug addiction, transportation, low edu. Level, literacy, decrease access to med. care, fpc, rehab)? @ -No Was there de-escalation of care discussed even if they declined (Discuss DNR or withdrawal of care, Hospice)? DNR status @ -No What co-morbidities impacted this encounter? (DM, HTN, Smoking, COPD, CAD, Cancer, CVA, ARF, Chemo, Hep., AIDS, mental health diagnosis, sleep apnea, morbid obesity)? @ -Diabetes, hyperlipidemia Was patient admitted / discharged? Hospital course, mention meds given and route, prescriptions, significant lab abnormalities, going to OR and other pertinent info. @ -58-year-old female presenting with chief complaint of chest pain. Physical exam is conducted. Cardiac workup is essentially unremarkable. Patient will be admitted for observation and evaluation by cardiology in the a.m. Patient is agreeable with this plan. I discussed this case with my attending Dr. Lion Undiagnosed new problem with uncertain prognosis? @ -No Drug Therapy requiring intensive monitoring for toxicity (Heparin, Nitro, Insulin, Cardizem)? @ -No Were any procedures done? @ -No Diagnosis/symptom? @ -Chest pain Acute, or Chronic, or Acute on Chronic? @ -Acute Uncomplicated (without systemic symptoms) or Complicated (systemic symptoms)? @ -Complicated Side effects of treatment? @ -No Exacerbation, Progression, or Severe Exacerbation? @ -No Poses a threat to life or bodily function? How? (Chest pain, USA, MD, pneumonia, PE, COPD, DKA, ARF, appy, cholecystitis, CVA, Diverticulitis, Homicidal, Suic idal, threat to staff... and all critical care pts) @ -Yes Disposition Clinical Impression: Chest pain Disposition: ADMITTED IP TO THIS HOSP Condition: Stable Time of Disposition: 02:59
[2023-04-24] MEDS ORDERED: NALOXONE 0.4 MG/ML 1 ML VIAL IV PRN (03:14)
[2023-04-24] MEDS ORDERED: ACETAMINOPHEN TAB 325 MG TAB PO PRN (03:14)
[2023-04-24] MEDS ORDERED: SODIUM CHLORIDE 0.9% 1,000 ML IV SCH (03:15)
[2023-04-24] MEDS ORDERED: ATORVASTATIN 80 MG TAB PO STA (04:00)
--- NOTE | 2023-04-24 04:23 | P.HPIM ---
History of Present Illness H&P Date: 04/24/23 Patient is a 58-year-old female with a PMH of type II DM and hyperlipidemia who presents to the emergency room with complaints of chest discomfort. Patient reports constant epigastric and substernal chest discomfort, sharp and pressure- like in nature, ranging in intensity from 5 to10 out of 10, without any associated symptoms. Patient does report a family history of heart disease with multiple siblings with early CAD and CHF. She denied experiencing fever, chills, cough, nausea, vomiting, lower extremity swelling, lower extremity pain. She reports ongoing 5 out of 10 epigastric discomfort at the time of interview. Chest x-ray in the emergency room revealed no acute abnormalities as reviewed by me. EKG revealed sinus rhythm at 66 bpm with voltage criteria for LVH with T- wave flattening in leads 3 and V3. Laboratory evaluation revealed a glucose of 112 with troponin less than 0.012. ED documentation reviewed and case discussed with ED provider. Review of systems: Pertinent positives and negatives as discussed in HPI, a complete review of systems was performed and all other systems are negative. Physical examination: Vital signs reviewed General: non toxic, no distress, appears at stated age, obese Derm: no unusual rashes/lesions, warm Head: atraumatic, normocephalic, symmetric Eyes: EOMI, no lid lag, anicteric sclera, pupils equal round reactive to light ENT: Nose and ears atraumatic Neck: No cervical lymphadenopathy, trachea midline, supple Mouth: no lip lesion, mucus membranes moist Cardiovascular: S1S2 reg, no murmur, positive dorsalis pedis pulse bilateral, no edema Lungs: CTA bilateral, no rhonchi, no rales, no accessory muscle use Abdominal: soft, nontender to palpation, no guarding Ext: muscle strength 5 out of 5 in all 4 extremities grossly, no gross muscle atrophy, no contractures, Neuro: CN II-XI grossly intact, no gross focal neuro deficits Psych: Alert, oriented, appropriate affect Assessment: Chest pain, rule out ACS Chronic conditions: Type II DM, hyperlipidemia Imaging: Chest x-ray in the emergency room revealed no acute abnormalities as reviewed by me. EKG revealed sinus rhythm at 66 bpm with voltage criteria for LVH with T- wave flattening in leads 3 and V3. Data Review: Laboratory evaluation revealed a glucose of 112 with troponin less than 0.012. Plan: Cardiology consult Trend troponin Cardiac monitoring Continue with aspirin, statin Insulin sliding scale and blood glucose monitoring DVT prophylaxis: Lovenox Subq The patient is admitted with an anticipated less than 2 midnight stay for radha luation of chest pain CODE STATUS: Full Code Discussed with: Patient Anticipated discharge place: Home Past Medical History Past Medical History: Chest Pain / Angina, Diabetes Mellitus, GERD/Reflux, Hyperlipidemia, Osteoarthritis (OA) Additional Past Medical History / Comment(s): restless leg syndrome, hx migraines, hx anemia, chronic neck problems. 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 History of Any Multi-Drug Resistant Organisms: None Reported Past Surgical History: Appendectomy, Cholecystectomy, Tubal Ligation Additional Past Surgical History / Comment(s): Colonoscopy 2012. Past Anesthesia/Blood Transfusion Reactions: No Reported Reaction Past Psychological History: Anxiety Smoking Status: Never smoker Past Alcohol Use History: None Reported Past Drug Use History: None Reported - Past Family History Father Family Medical History: Diabetes Mellitus Additional Family Medical History / Comment(s): HEART DISEASE Mother Family Medical History: Myocardial Infarction ([place]) Additional Family Medical History / Comment(s): FROM [place] AT AGE 45 Sister(s) Family Medical History: Myocardial Infarction ([place]) Medications and Allergies Home Medications Medication Instructions Recorded Confirmed Type Ibuprofen [Motrin] 800 mg PO BID PRN 08/14/18 07/24/22 History oxyCODONE HCL/ACETAMINOPHEN 1 tab PO TID 08/14/18 07/24/22 History [Percocet 7.5-325 mg] Atorvastatin [Lipitor] 10 mg PO HS 06/14/21 07/24/22 History Famotidine 40 mg PO DAILY 06/14/21 07/24/22 History Multivitamins, Thera [Multivitamin 1 tab PO DAILY 06/14/21 07/24/22 History (formulary)] Metoprolol Succinate (ER) [Toprol 25 mg PO HS 08/22/21 07/24/22 History XL] metFORMIN HCL [Glucophage] 500 mg PO BID 08/22/21 07/24/22 History sitaGLIPtin PHOSPHATE [Januvia] 100 mg PO DAILY 08/22/21 07/24/22 History Magnesium Oxide [Magnesium] 500 mg PO DAILY 07/17/22 07/24/22 History Allergies Allergy/AdvReac Type Severity Reaction Status Date / Time No Known Allergies Allergy Verified 07/24/22 08:56 Physical Exam Vitals: Vital Signs Temp Pulse Resp BP Pulse Ox 04/24/23 02:04 78 16 128/78 97 04/24/23 00:04 97.9 F 65 18 145/87 96 Intake and Output 04/23/23 04/23/23 04/24/23 14:59 22:59 06:59 Other: Weight 99.79 kg Results CBC & Chem 7: 04/24/23 00:13 04/24/23 00:13 Labs: Abnormal Lab Results - Last 24 Hours (Table) 04/24/23 Range/Units 00:13 Chloride 108 H (98-107) mmol/L Carbon Dioxide 21 L (22-30) mmol/L BUN 24 H (7-17) mg/dL Glucose 112 H (74-99) mg/dL
[2023-04-24] MEDS ORDERED: oxyCODONE-APAP 5-325MG 1 EACH TAB PO STA ×2 (04:29→06:22)
--- NOTE | 2023-04-24 04:36 | XR ---
EXAM: XR Chest, 2 Views CLINICAL HISTORY: Chest Pain TECHNIQUE: Frontal and lateral views of the chest. COMPARISON: 06/14/2021. FINDINGS: Heart is normal size. Mild bibasilar platelike atelectasis versus scarring. No pneumonia. No pleural effusion or pneumothorax. Degenerative changes of the thoracic spine. IMPRESSION: Mild bibasilar platelike atelectasis versus scarring. No pneumonia.
[2023-04-24 04:37] VITALS: PULSE 62
[2023-04-24 06:22] LABS: Glucose,Whole Blood 104 mg/dL (70-110)
[2023-04-24] MEDS: INSULIN ASPART (NovoLOG) 100 UNIT/ML VIAL SQ SCH ×2 (06:25→13:31)
[2023-04-24 08:25] VITALS: BP 116/76; RESP 12; TEMP 97.7
[2023-04-24] MEDS ORDERED: amLODIPine 5 MG TAB PO SCH (09:00)
[2023-04-24] MEDS ORDERED: ASPIRIN 81 MG PO SCH (09:00)
[2023-04-24] MEDS ORDERED: ENOXAPARIN 40 MG/0.4 ML SYRINGE SQ SCH (09:00)
--- NOTE | 2023-04-24 09:58 | P.CRDCN ---
History of Present Illness History of present illness: HISTORY OF PRESENT ILLNESS: This is a 58-year-old female with a past medical history significant for with diabetes, hyperlipidemia, and anxiety. Patient follows in the office with Dr. Dang. We have been asked to see the patient in consultation for chest pain. Patient examined at the bedside. Patient states that she has a history of chronic chest pain. She states that the pain is intermittent and does not seem to have any rhyme or reason when it comes. She states sometimes the pain as constant and can last for hours and sometimes it does not last longer than a few minutes. She states this pain is similar to the pain that she had in the past when she underwent cardiac catheterization however yesterday it was worse than it had been for which prompt her to come to the emergency room. She denied any shortness of breath. Denied any radiation of the pain. It is noted that the patient underwent cardiac catheterization in August 2021 revealing normal tre nary arteries. Dr. Dang noted the patient's chest discomfort may be related to coronary vasospasms. * EKG reveals sinus mechanism with no signs of acute ischemia * Chest xray mild bibasilar platelike atelectasis versus scarring. No pneumonia. * Laboratory data: Troponin negative 3 * Current home cardiac medications include atorvastatin 10 mg at night, metoprolol succinate 25 mg at night * Most recent echocardiogram obtained in July 2021 revealed ejection fraction 50% with mild to moderate MR * Cardiac catheterization history: August 2021 revealing normal coronary arteries REVIEW OF SYSTEMS: At the time of my exam: CONSTITUTIONAL: Denies fever or chills. HEENT: Denies blurred vision, vision changes, or eye pain. Denies hemoptysis CARDIOVASCULAR: Denies chest pain. Denies orthopnea. Denies PND. Denies palpitations RESPIRATORY: Denies shortness of breath. GASTROINTESTINAL: Denies abdominal pain. Denies nausea or vomiting. HEMATOLOGIC: Denies bleeding disorders. GENITOURINARY: Denies any blood in urine. SKIN: Denies pruitis. Denies rash. PHYSICAL EXAM: VITAL SIGNS: Reviewed. GENERAL: Well-developed in no acute distress. HEENT: Head is normocephalic. Pupils are equal, round. Sclerae anicteric. Mucous membranes of the mouth are moist. Neck supple. No JVD or thyromegaly LUNGS: Respirations even and unlabored. Lungs essentially clear to auscultation bilaterally. HEART: Regular rate and rhythm. S1 and S2 heard. Systolic murmur noted ABDOMEN: Soft. Nondistended. Nontender. EXTREMITIES: Normal range of motion. No clubbing or cyanosis. Peripheral pulses intact. No lower extremity edema NEUROLOGIC: Awake and alert. Oriented x 3. ASSESSMENT: Chest pain, troponins negative 3 Normal coronary arteries, per cardiac catheterization, August 2021 Chronic chest pain, may be secondary to coronary vasospasm Hyperlipidemia Diabetes Anxiety PLAN: An acute coronary event has been ruled out Resume home cardiac medications Obtain 2-D echo to assess cardiac structure and function Add amlodipine 5 mg daily for possible coronary vasospasm Patient is currently stable from a cardiac standpoint Patient to follow-up in the office with Dr. Dang Nurse practitioner note has been reviewed by physician. Signing provider agrees with the documented findings, assessment, and plan of care. Past Medical History Past Medical History: Chest Pain / Angina, Diabetes Mellitus, GERD/Reflux, Hyperlipidemia, Osteoarthritis (OA) Additional Past Medical History / Comment(s): restless leg syndrome, hx dannie tameka, hx anemia, chronic neck problems. 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 History of Any Multi-Drug Resistant Organisms: None Reported Past Surgical History: Appendectomy, Cholecystectomy, Tubal Ligation Additional Past Surgical History / Comment(s): Colonoscopy 2012. Past Anesthesia/Blood Transfusion Reactions: No Reported Reaction Past Psychological History: Anxiety Smoking Status: Never smoker Past Alcohol Use History: None Reported Past Drug Use History: None Reported - Past Family History Father Family Medical History: Diabetes Mellitus Additional Family Medical History / Comment(s): HEART DISEASE Mother Family Medical History: Myocardial Infarction ([place]) Additional Family Medical History / Comment(s): FROM [place] AT AGE 45 Sister(s) Family Medical History: Myocardial Infarction ([place]) Medications and Allergies Home Medications Medication Instructions Recorded Confirmed Type oxyCODONE HCL/ACETAMINOPHEN 1 tab PO TID PRN 08/14/18 04/24/23 History [Percocet 7.5-325 mg] Atorvastatin [Lipitor] 10 mg PO HS 06/14/21 04/24/23 History Famotidine 40 mg PO DAILY 06/14/21 04/24/23 History Metoprolol Succinate (ER) [Toprol 25 mg PO HS 08/22/21 04/24/23 History XL] metFORMIN HCL [Glucophage] 500 mg PO BID 08/22/21 04/24/23 History sitaGLIPtin PHOSPHATE [Januvia] 100 mg PO DAILY 08/22/21 04/24/23 History Cinnamon Bark [Cinnamon] 1,000 mg PO DAILY 04/24/23 04/24/23 History Naloxone HCl [Narcan] 4 mg NASAL DIRECTED PRN 04/24/23 04/24/23 History busPIRone HCL [Buspar] 7.5 mg PO BID 04/24/23 04/24/23 History Allergies Allergy/AdvReac Type Severity Reaction Status Date / Time No Known Allergies Allergy Verified 04/24/23 07:16 Physical Exam Vitals: Vital Signs Temp Pulse Pulse Resp BP BP Pulse Ox 04/24/23 07:00 97.7 F 62 12 116/76 97 04/24/23 04:14 97.6 F 62 15 124/74 99 04/24/23 02:04 78 16 128/78 97 04/24/23 00:04 97.9 F 65 18 145/87 96 Intake and Output 04/23/23 04/24/23 04/24/23 22:59 06:59 14:59 Intake Total 118 Balance 118 Intake: Oral 118 Other: Weight 99.79 kg Results 04/24/23 00:13 04/24/23 00:13 Cardiac Enzymes 04/24/23 04/24/23 04/24/23 Range/Units 00:13 00:13 03:28 AST 19 (14-36) U/L Troponin I <0.012 <0.012 (0.000-0.034) ng/mL 04/24/23 Range/Units 05:31 AST (14-36) U/L Troponin I <0.012 (0.000-0.034) ng/mL Coagulation 04/24/23 Range/Units 00:13 PT 10.4 (10.0-12.5) sec APTT 23.7 (22.0-30.0) sec CBC 04/24/23 Range/Units 00:13 WBC 6.1 (3.8-10.6) k/uL RBC 5.21 (3.80-5.40) m/uL Hgb 13.8 (11.4-16.0) gm/dL Hct 43.3 (34.0-46.0) % Plt Count 254 (150-450) k/uL Comprehensive Metabolic Panel 04/24/23 Range/Units 00:13 Sodium 139 (137-145) mmol/L Potassium 3.8 (3.5-5.1) mmol/L Chloride 108 H (98-107) mmol/L Carbon Dioxide 21 L (22-30) mmol/L BUN 24 H (7-17) mg/dL Creatinine 0.89 (0.52-1.04) mg/dL Glucose 112 H (74-99) mg/dL Calcium 9.3 (8.4-10.2) mg/dL AST 19 (14-36) U/L ALT 16 (4-34) U/L Alkaline Phosphatase 63 (38-126) U/L Total Protein 6.3 (6.3-8.2) g/dL Albumin 3.9 (3.5-5.0) g/dL Current Medications Generic Name Dose Route Start Last Admin Trade Name Freq PRN Reason Stop Dose Admin Acetaminophen 650 mg 04/24/23 03:14 Acetaminophen Tab 325 Mg Tab PO Q6HR PRN Mild Pain or Fever > 100.5 Amlodipine Besylate 5 mg 04/24/23 09:00 Amlodipine 5 Mg Tab PO DAILY [facility] Aspirin 81 mg 04/24/23 09:00 Aspirin 81 Mg PO DAILY [facility] Atorvastatin Calcium 80 mg 04/24/23 21:00 Atorvastatin 80 Mg Tab PO HS [facility] Enoxaparin Sodium 40 mg 04/24/23 09:00 04/24/23 09:51 Enoxaparin 40 Mg/0.4 Ml Syringe SQ Not Given DAILY [facility] Sodium Chloride 1,000 mls @ 75 mls/hr 04/24/23 03:15 04/24/23 03:31 Saline 0.9% IV 75 mls/hr .[id number] [facility] Administration Insulin Aspart 0 unit 04/24/23 07:30 04/24/23 06:25 Insulin Aspart (Novolog) 100 Unit/Ml Vial SQ Not Given ACHS [facility] Protocol Naloxone HCl 0.2 mg 04/24/23 03:14 Naloxone 0.4 Mg/Ml 1 Ml Vial IV Q2M PRN Opioid Reversal Intake and Output 04/23/23 04/24/23 04/24/23 22:59 06:59 14:59 Intake Total 118 Balance 118 Intake: Oral 118 Other: Weight 99.79 kg 04/24/23 00:13 04/24/23 00:13
[2023-04-24 12:28] LABS: Glucose,Whole Blood 162 mg/dL (70-110)
--- NOTE | 2023-04-24 12:39 | CA ---
Transthoracic Echo Report Name: Negin Verde Age: 58 Gender: F : 1965 Exam Date: 04/24/2023 11:25 Exam Location: [facility] Ht (in): 68 Wt (lb): 220 Ordering Physician: Noemi Cline Attending/Referring Phys: [id number], Marlyn Outreach Associate Misti Ashley RDCS Procedure CPT: Indications: LV function Cardiac Hx: Technical Quality: Fair Contrast 1: Total Dose (mL): Contrast 2: Total Dose (mL): MEASUREMENTS (Male / Female) Normal Values 2D ECHO LV Diastolic Diameter PLAX 3.3 cm 4.2 - 5.9 / 3.9 - 5.3 cm LV Systolic Diameter PLAX 2.4 cm IVS Diastolic Thickness 1.4 cm 0.6 - 1.0 / 0.6 - 0.9 cm LVPW Diastolic Thickness 1.3 cm 0.6 - 1.0 / 0.6 - 0.9 cm LV Relative Wall Thickness 0.8 RV Internal Dim ED PLAX 3.1 cm LA Volume 56.9 cm??? 18 - 58 / 22 - 52 cm??? LA Volume Index 25.6 cm???/m??? 16 - 28 cm???/m??? M-MODE Aortic Root Diameter MM 2.5 cm LA Systolic Diameter MM 4.4 cm LA Ao Ratio MM 1.8 AV Cusp Separation MM 1.5 cm DOPPLER LVOT Peak Velocity 84.1 cm/s LVOT Peak Gradient 2.8 mmHg LVOT Velocity Time Integral 16.5 cm MV Area PHT 3.4 cm??? Mitral E Point Velocity 79.5 cm/s Mitral A Point Velocity 80.3 cm/s Mitral E to A Ratio 1.0 MV Deceleration Time 225.3 ms MV E' Velocity 7.5 cm/s Mitral E to MV E' Ratio 10.6 TR Peak Velocity 136.1 cm/s TR Peak Gradient 7.4 mmHg Right Ventricular Systolic Press 12.4 mmHg FINDINGS Left Ventricle Moderately increased left ventricular wall thickness. Left ventricular cavity size normal. Normal left ventricular systolic function with no obvious regional wall motion abnormalities. Left ventricular ejection fraction is estimated at 55-60 %. Right Ventricle Normal right ventricular size and function. Right ventricular systolic pressure within normal limits. Right Atrium Normal right atrial size. Left Atrium Mildly increased left atrial volume. Mitral Valve Structurally normal mitral valve. Mitral valve thickened. Mild mitral annular calcification. Mild mitral regurgitation. Aortic Valve No aortic valve stenosis or regurgitation. Trileaflet aortic valve.aortic valve sclerosis. Tricuspid Valve Structurally normal tricuspid valve. Mild tricuspid regurgitation. Pulmonic Valve Structurally normal pulmonic valve. Pericardium No pericardial effusion. Aorta Normal size aortic root and proximal ascending aorta. CONCLUSIONS 1. Normal left ventricular size and systolic function 2. Mild mitral and tricuspid regurgitation Previewed by: Dr. Rosana Escobar MD (Electronically Signed) Final Date: 24 April 2023 12:39
--- NOTE | 2023-04-24 13:41 | P.DS ---
Providers Date of admission: 04/24/23 02:52 Expected date of discharge: 04/24/23 Attending physician: Jolanta Chin MD Consults: 04/24/23 03:14 Consult Physician Urgent Consulting Provider: [facility] Consult Reason/Comments: chest pain Do you want consulting provider notified?: Yes, Notify in am Primary care physician: Fabiola Hospital Course: Discharge Diagnosis: Atypical chest pain Suspected coronary spasm GERD Type 2 diabetes Dyslipidemia Hospital Course: 58-year-old female with a PMH of type II DM and hyperlipidemia who presents to the emergency room with complaints of chest discomfort. Chest x-ray in the emergency room revealed no acute abnormalities. EKG revealed sinus rhythm at 66 bpm with voltage criteria for LVH with T-wave flattening in leads 3 and V3. Laboratory evaluation revealed a glucose of 112 with troponin less than 0.012 x3. Cardiology consulted. Echocardiogram showed normal LV size and systolic function, mild mitral and tricuspid regurgitation. Patient being discharged on amlodipine. Follow-up with cardiology. Patient seen and examined at bedside. Vital signs reviewed and stable. General: nontoxic, no distress, appears at stated age Derm: warm, dry Head: atraumatic, normocephalic, symmetric Eyes: EOMI, no lid lag, anicteric sclera Mouth: no lip lesion, mucus membranes moist Cardiovascular: S1S2 reg, no murmur Lungs: CTA bilateral, no rhonchi, no rales , no accessory muscle use Abdominal: soft, nontender to palpation, no guarding, no appreciable organomegaly Ext: no gross muscle atrophy, no edema, no contractures Neuro: CN II-XI grossly intact, no focal neuro deficits Psych: Alert, oriented, appropriate affect A total of 33 minutes of time were spent preparing this complex discharge summary. Patient was discharged on 04/24/23 at 12:56. Patient Condition at Discharge: Stable Plan - Discharge Summary Discharge Rx Participant: No New Discharge Prescriptions: New amLODIPine [Norvasc] 5 mg PO DAILY #60 tab Continue oxyCODONE HCL/ACETAMINOPHEN [Percocet 7.5-325 mg] 1 tab PO TID PRN PRN Reason: Pain metFORMIN HCL [Glucophage] 500 mg PO BID Metoprolol Succinate (ER) [Toprol XL] 25 mg PO HS sitaGLIPtin PHOSPHATE [Januvia] 100 mg PO DAILY Famotidine 40 mg PO DAILY Atorvastatin [Lipitor] 10 mg PO HS busPIRone HCL [Buspar] 7.5 mg PO BID Naloxone HCl [Narcan] 4 mg NASAL DIRECTED PRN PRN Reason: overdose Cinnamon Bark [Cinnamon] 1,000 mg PO DAILY Discharge Medication List oxyCODONE HCL/ACETAMINOPHEN [Percocet 7.5-325 mg] 1 tab PO TID PRN 08/14/18 [History] Atorvastatin [Lipitor] 10 mg PO HS 06/14/21 [History] Famotidine 40 mg PO DAILY 06/14/21 [History] Metoprolol Succinate (ER) [Toprol XL] 25 mg PO HS 08/22/21 [History] metFORMIN HCL [Glucophage] 500 mg PO BID 08/22/21 [History] sitaGLIPtin PHOSPHATE [Januvia] 100 mg PO DAILY 08/22/21 [History] Cinnamon Bark [Cinnamon] 1,000 mg PO DAILY 04/24/23 [History] Naloxone HCl [Narcan] 4 mg NASAL DIRECTED PRN 04/24/23 [History] amLODIPine [Norvasc] 5 mg PO DAILY #60 tab 04/24/23 [Rx] busPIRone HCL [Buspar] 7.5 mg PO BID 04/24/23 [History] Follow up Appointment(s)/Referral(s): Rosana Escobar MD [STAFF PHYSICIAN] - 1 Week (Pt to make appointment. 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 Discharge Disposition: HOME SELF-CARE
[2023-04-24] MEDS ORDERED: ATORVASTATIN 80 MG TAB PO SCH (21:00)
== END 2023-04-24 13:39 | disposition home or self-care (01) ==
LOC: EC 00:03 → 6NMEDSUR 02:52
PROVIDERS: ADMIT Internal Medicine; ATTEND Internal Medicine
DX: R07.89 Other chest pain (principal); G89.29 Other chronic pain; E11.9 Type 2 diabetes mellitus without complications; K21.9 Gastro-esophageal reflux disease without esophagitis; E78.5 Hyperlipidemia, unspecified; I08.1 Rheumatic disorders of both mitral and tricuspid valves; G43.909 Migraine, unspecified, not intractable, without status migrainosus; G25.81 Restless legs syndrome; D64.9 Anemia, unspecified; R06.02 Shortness of breath; R10.13 Epigastric pain; A60.09 Herpesviral infection of other urogenital tract; M19.90 Unspecified osteoarthritis, unspecified site; F41.9 Anxiety disorder, unspecified; Z79.84 Long term (current) use of oral hypoglycemic drugs; Z79.899 Other long term (current) drug therapy; Z90.49 Acquired absence of other specified parts of digestive tract; Z98.51 Tubal ligation status; Z98.890 Other specified postprocedural states; Z82.49 Family history of ischemic heart disease and other diseases of the circulatory system; Z83.3 Family history of diabetes mellitus
CPT/HCPCS: 99285; 36415; 93005; 93306; 80053; 83735; 84484; 85025; 85610; 85730; 71046; G0378

== ENCOUNTER 2023-08-01 05:05 | Emergency (ER) | payer MEDICARE, OTHER ==
--- NOTE | 2023-08-01 06:35 | ED ---
URI HPI - General Chief Complaint: Upper Respiratory Infection Stated Complaint: Flu, body ache, vomiting Time Seen by Provider: 08/01/23 06:11 Source: patient, RN notes reviewed Mode of arrival: ambulatory Limitations: no limitations - History of Present Illness Initial Comments: This is a 58 year old female who presents to the emergency department for coughing, congestion, fevers, and body aches. Symptoms started 4 days ago. Reports associated nausea and vomiting as well. Denies any sick contacts. She does have some shortness of breath. Denies any chest pain. Denies any hx of asthma or COPD. She does not smoke. MD Complaint: fever, cough, nasal congestion - Related Data Home Medications Medication Instructions Recorded Confirmed oxyCODONE HCL/ACETAMINOPHEN 1 tab PO TID PRN 08/14/18 04/24/23 [Percocet 7.5-325 mg] Atorvastatin [Lipitor] 10 mg PO HS 06/14/21 04/24/23 Famotidine 40 mg PO DAILY 06/14/21 04/24/23 Metoprolol Succinate (ER) [Toprol 25 mg PO HS 08/22/21 04/24/23 XL] metFORMIN HCL [Glucophage] 500 mg PO BID 08/22/21 04/24/23 sitaGLIPtin PHOSPHATE [Januvia] 100 mg PO DAILY 08/22/21 04/24/23 Cinnamon Bark [Cinnamon] 1,000 mg PO DAILY 04/24/23 04/24/23 Naloxone HCl [Narcan] 4 mg NASAL DIRECTED PRN 04/24/23 04/24/23 busPIRone HCL [Buspar] 7.5 mg PO BID 04/24/23 04/24/23 Previous Rx's Medication Instructions Recorded amLODIPine [Norvasc] 5 mg PO DAILY #60 tab 04/24/23 Albuterol Sulfate [Albuterol 1 - 2 puff PO Q4-6H PRN #8.5 gm 08/01/23 Sulfate Hfa] Azithromycin [Zithromax] 250 mg PO DIRECTED 5 Days #6 tab 08/01/23 Benzonatate [Tessalon Perle] 200 mg PO TID PRN #30 capsule 08/01/23 Ondansetron Odt [Zofran Odt] 4 mg PO Q8HR PRN #20 tab 08/01/23 Allergies Allergy/AdvReac Type Severity Reaction Status Date / Time No Known Allergies Allergy Verified 08/01/23 06:01 Review of Systems ROS Statement: Those systems with pertinent positive or pertinent negative responses have been documented in the HPI. ROS Other: All systems not noted in ROS Statement are negative. Past Medical History Past Medical History: Chest Pain / Angina, Diabetes Mellitus, GERD/Reflux, Hyperlipidemia, Osteoarthritis (OA) Additional Past Medical History / Comment(s): restless leg syndrome, hx migraines, hx anemia, chronic neck problems. 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 History of Any Multi-Drug Resistant Organisms: None Reported Past Surgical History: Appendectomy, Cholecystectomy, Tubal Ligation Additional Past Surgical History / Comment(s): Colonoscopy 2012. Past Anesthesia/Blood Transfusion Reactions: No Reported Reaction Past Psychological History: Anxiety Smoking Status: Never smoker Past Alcohol Use History: None Reported Past Drug Use History: None Reported - Past Family History Father Family Medical History: Diabetes Mellitus Additional Family Medical History / Comment(s): HEART DISEASE Mother Family Medical History: Myocardial Infarction ([place]) Additional Family Medical History / Comment(s): FROM [place] AT AGE 45 Sister(s) Family Medical History: Myocardial Infarction ([place]) General Exam Limitations: no limitations General appearance: alert, in no apparent distress Head exam: Present: atraumatic, normocephalic, normal inspection Respiratory exam: Present: normal lung sounds bilaterally. Absent: respiratory distress, wheezes, rales, rhonchi, stridor Cardiovascular Exam: Present: regular rate, normal rhythm, normal heart sounds. Absent: systolic murmur, diastolic murmur, rubs, gallop, clicks Neurological exam: Present: alert, oriented X3, CN II-XII intact Psychiatric exam: Present: normal affect, normal mood Skin exam: Present: warm, dry, intact, normal color. Absent: rash Course Vital Signs 08/01/23 08/01/23 08/01/23 05:58 08:17 08:25 Temperature 100.4 F H Pulse Rate 111 H 101 H 99 Respiratory 20 Rate Blood Pressure 109/75 O2 Sat by Pulse 95 Oximetry 08/01/23 08/01/23 08:40 08:41 Temperature 98.9 F Pulse Rate 101 H Respiratory 120 H 18 Rate Blood Pressure 103/71 O2 Sat by Pulse 96 Oximetry Medical Decision Making - Medical Decision Making This is a 58 year old female who presents to the emergency department for coughing, congestion, and fevers. Was pt. sent in by a medical professional or institution? @ -No Did you speak to anyone other than the patient for history? @ -No Did you review nursing and triage notes? @ -Yes, and I agree, it is accurate with regards to the patient's symptoms. Were old charts reviewed? @ -No Differential Diagnosis? @ -Differential Cough: Influenza, Covid, RSV, croup, allergic rhinitis, GERD, pneumonia, bronchitis, COPD, viral pharyngitis, streptococcal pharyngitis, this is not meant to be an all-inclusive list. EKG interpreted by me (3pts min.)? @ -Not obtained X-rays interpreted by me (1pt min.)? @ -Chest x-ray obtained, my interpretation identifies an opacity at the right lung base. CT interpreted by me (1pt min.)? @ -Not obtained U/S interpreted by me (1pt. min.)? @ -Not obtained What testing was considered but not performed? (CT, X-rays, U/S, labs)? Why? @ -None What meds were considered but not given? Why? @ -None Did you discuss the management of the patient with other professionals? @ -No Did you reconcile home meds? @ -No Was smoking cessation discussed for >3mins.? @ -No Was critical care preformed (if so, how long)? @ -No Were there social determinants of health that impacted care today? How? (Homelessness, low income, unemployed, alcoholism, drug addiction, transportation, low edu. Level, literacy, decrease access to med. care, assisted, rehab)? @ -No Was there de-escalation of care discussed even if they declined? (Discuss DNR or withdrawal of care, Hospice)? @ -No What co-morbidities impacted this encounter? (DM, HTN, Smoking, COPD, CAD, Cancer, CVA, Hep., AIDS, mental health diagnosis, sleep apnea, morbid obesity)? @ -DM Was patient admitted / discharged? @ -Discharged. Patient positive for influenza A. COVID and RSV testing are negative. Chest x-ray reveals a possible focal airspace opacity at the right lung base. Patient was febrile on arrival and treated with Tylenol as well as Zofran for the nausea. Tessalon perles and Duoneb breathing treatment administered as well. Rx for Tessalon Perles, Zofran, albuterol inhaler, and Z- codi provided with dosing instructions reviewed. Patient discharged home in stable condition. Undiagnosed new problem with uncertain prognosis? @ -None Drug Therapy requiring intensive monitoring for toxicity (Heparin, Nitro, Insulin, Cardizem)? @ -None Were any procedures done? @ -None Diagnosis/symptom? @ -Influenza A, Pneumonia Acute, or Chronic, or Acute on Chronic? @ -Acute Uncomplicated (without systemic symptoms) or Complicated (systemic symptoms)? @ -Uncomplicated Side effects of treatment? @ -None Exacerbation, Progression, or Severe Exacerbation] @ -Not applicable Poses a threat to life or bodily function? @ -No Return precautions reviewed in depth, the patient is instructed to return to the emergency department with any new, worsening, or concerning symptoms. Patient verbalized understanding. This case was discussed in detail with the attending ED physician, Dr. Fernandez. Presentation, findings, and treatment plan discussed in detail as well. - Lab Data Lab Results 08/01/23 Range/Units 06:03 Influenza Type A (PCR) Detected A (Not Detectd) Influenza Type B (PCR) Not Detected (Not Detectd) RSV (PCR) Not Detected (Not Detectd) SARS-CoV-2 (PCR) Not Detected (Not Detectd) - Radiology Data Radiology results: report reviewed, image reviewed Disposition Clinical Impression: Influenza A, Pneumonia Disposition: HOME SELF-CARE Instructions (If sedation given, give patient instructions): Influenza (ED) Additional Instructions: Return to the emergency department with any new, worsening, or concerning symptoms. Take the antibiotic as prescribed for 5 days. You can take the Tessalon Perles up to every 8 hours as needed for coughing. You can take the Zofran up to every 8 hours as needed for nausea and vomiting. The albuterol inha ler can be used every 4-6 hours for coughing and shortness of breath. Alternate with Ibuprofen and Tylenol for fevers and bodyaches. Make sure you get plenty of rest and remain well hydrated. Follow up with your primary care provider in 1-2 days. Prescriptions: Albuterol Sulfate [Albuterol Sulfate Hfa] 1 - 2 puff PO Q4-6H PRN #8.5 gm PRN Reason: Shortness Of Breath Benzonatate [Tessalon Perle] 200 mg PO TID PRN #30 capsule PRN Reason: Cough Azithromycin [Zithromax] 250 mg PO DIRECTED 5 Days #6 tab Ondansetron Odt [Zofran Odt] 4 mg PO Q8HR PRN #20 tab PRN Reason: Nausea And Vomiting Is patient prescribed a controlled substance at d/c from ED?: No Referrals: Miri Cedeno [Primary Care Provider] - 1-2 days Time of Disposition: 07:55
[2023-08-01] MEDS: ACETAMINOPHEN TAB 500 MG TAB PO STA (07:27)
[2023-08-01] MEDS: ONDANSETRON ODT 4 MG TAB PO STA (07:27)
--- NOTE | 2023-08-01 07:45 | XR ---
EXAMINATION TYPE: XR chest 2V DATE OF EXAM: 08/01/2023 COMPARISON: 04/24/2023 HISTORY: 58-year-old female with cough TECHNIQUE: PA and lateral views FINDINGS: The cardiomediastinal silhouette, aorta, and pulmonary vasculature are within normal limits. There is focal airspace opacity at the right base. Additional areas of strandy atelectasis or scarring in the lower lungs. IMPRESSION: Findings suggest right basilar pneumonia.
[2023-08-01] MEDS: BENZONATATE 100 MG CAP PO STA (07:49)
[2023-08-01] MEDS: IPRATROPIUM-ALBUTEROL 3 ML NEB INHALATION STA (08:17)
[2023-08-01] MEDS: FAMOTIDINE 20 MG TAB PO STA (08:35)
[2023-08-01 08:45] VITALS: PULSE 101
[2023-08-01 08:46] VITALS: BP 103/71; RESP 18; TEMP 98.9
== END 2023-08-01 08:47 | disposition home or self-care (01) ==
LOC: EC 05:05
DX: J10.00 Influenza due to other identified influenza virus with unspecified type of pneumonia (principal); E11.9 Type 2 diabetes mellitus without complications; K21.9 Gastro-esophageal reflux disease without esophagitis; E78.5 Hyperlipidemia, unspecified; F41.9 Anxiety disorder, unspecified; Z20.822 Contact with and (suspected) exposure to COVID-19; Z79.84 Long term (current) use of oral hypoglycemic drugs; Z79.899 Other long term (current) drug therapy; Z90.49 Acquired absence of other specified parts of digestive tract
CPT/HCPCS: 71046; 87636; 94640; 99284

== ENCOUNTER → 2023-12-02 | Outpatient (CLI) | payer MEDICARE, OTHER ==
[2023-12-02 16:15] VITALS: BP 134/88; PULSE 80; RESP 16; TEMP 98.6
--- NOTE | 2023-12-02 17:16 | P.HPOB ---
History of Present Illness H&P Date: 12/02/23 Chief Complaint: The patient is here for her routine gynecologic exam and ma mmogram. This is a 58-year-old G4, P4 with an LMP of 2018. Patient states she developed a painful area between the vaginal opening and the rectal opening. Started 2 days ago and she describes it as a itchy burning, paper cut feeling. She has a history of genital HSV, but has not had an outbreak for quite some time. She does not recall having a lesion in this general vicinity in the past. She states she has been under increased amount of stress recently. She denies vaginal discharge or vaginal odor. She is otherwise without gynecologic complaints and denies any postmenopausal bleeding. Review of Systems The patient has lost 4 pounds over the last year. She denies respiratory or cardiac problems. GI: Occasional constipation and occasional loose stools. Past Medical History Past Medical History: Chest Pain / Angina, Diabetes Mellitus, GERD/Reflux, Hyperlipidemia, Osteoarthritis (OA) Additional Past Medical History / Comment(s): restless leg syndrome, hx migraines, hx anemia, chronic neck problems. 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 History of Any Multi-Drug Resistant Organisms: None Reported Past Surgical History: Appendectomy, Cholecystectomy, Tubal Ligation Additional Past Surgical History / Comment(s): Colonoscopy 2012. Past Anesthesia/Blood Transfusion Reactions: No Reported Reaction Past Psychological History: Anxiety Smoking Status: Never smoker Past Alcohol Use History: None Reported Past Drug Use History: None Reported Additional History: She is . She has been with her boyfriend since 2020 and they do not live together. She is sexually active. She does not work outside of the home. - Past Family History Father Family Medical History: Diabetes Mellitus Additional Family Medical History / Comment(s): HEART DISEASE Mother Family Medical History: Myocardial Infarction ([place]) Additional Family Medical History / Comment(s): FROM [place] AT AGE 45 Sister(s) Family Medical History: Myocardial Infarction ([place]) Medications and Allergies Home Medications Medication Instructions Recorded Confirmed Type oxyCODONE HCL/ACETAMINOPHEN 1 tab PO TID PRN 08/14/18 12/02/23 History [Percocet 7.5-325 mg] Atorvastatin [Lipitor] 10 mg PO HS 06/14/21 12/02/23 History Famotidine 40 mg PO DAILY 06/14/21 12/02/23 History Metoprolol Succinate (ER) [Toprol 25 mg PO HS 08/22/21 12/02/23 History XL] metFORMIN HCL [Glucophage] 500 mg PO BID 08/22/21 12/02/23 History sitaGLIPtin PHOSPHATE [Januvia] 100 mg PO DAILY 08/22/21 12/02/23 History busPIRone HCL [Buspar] 7.5 mg PO BID 04/24/23 12/02/23 History Azithromycin [Zithromax] 250 mg PO DIRECTED 5 Days #6 tab 08/01/23 12/02/23 Rx Allergies Allergy/AdvReac Type Severity Reaction Status Date / Time No Known Allergies Allergy Verified 12/02/23 16:01 Exam Vital Signs Temp Pulse Resp BP Pulse Ox 12/02/23 16:13 98.6 F 80 16 134/88 97 Intake and Output 12/02/23 12/02/23 12/02/23 06:59 14:59 22:59 Other: Weight 102.965 kg Height 5 feet 8 inches, weight 227 pounds, BMI 34.5. This is a well-developed well-nourished black female who is alert and oriented times 3 in no acute distress. HEENT: Within normal limits. NECK: Supple without mass or thyromegaly. CHEST AND LUNGS: Clear to auscultation. HEART: Regular rate and rhythm. BREASTS: Are without mass or discharge. AXILLARY EXAM: Negative for adenopathy. BACK: Negative for CVA tenderness. ABDOMEN: Soft, nontender, without palpable masses. PELVIC EXAM: There is a small 3 to 4 mm ulcerated lesion with some erythema around the periphery at the posterior aspect of the perineum bordering the perianal area just left of the midline. When gently touched with a Q-tip this is the area that the patient was describing. The external genitalia is otherwise unremarkable with mild atrophy. Cervix and vagina appear normal with minimal atrophy. There is no unusual discharge. There is no evidence of prolapse. The uterus is midposition, nongravid size and nontender. There are no palpable adnexal masses or tenderness. RECTAL EXAM: Rectovaginal exam is negative for mass or tenderness and is negative for occult blood. EXTREMITIES: Nontender. IMPRESSION: 1. 58-year-old menopausal female with a history of genital herpes, with an active lesion in the perineal region near the perianal area. 2. Otherwise normal gynecologic exam. PLAN: 1. Pap smear was deferred since she had a negative Pap smear cotest on 06/27/2020. 2. Self breast awareness was discussed with the patient. We have also discussed symptoms associated with inflammatory breast cancer. 3. Screening mammogram will be done today. 4. Valtrex 500 mg twice daily x 3 days. Several refills will be given. If she does have recurrence of similar symptoms, she is to start this right away. We have discussed how she may be at a greater risk for recurrence when she is under unusual stress. Have also stressed the importance of eating healthy and getting adequate rest. If she is having 6 or more outbreaks per year, we consider suppressive therapy. This is her first 1 and a fair amount of time. The electronic prescription will be sent to [facility] pharmacy on and [address] 5. Osteoporosis prevention was discussed. I have stressed the importance of adequate calcium, vitamin D and regular exercise. Recommended amounts of calcium and vitamin D were also discussed. I recommended bone density testing which will be a baseline study. The order slip was given to the patient for this. 6. She was advised to return in one year for her annual well woman exam and as needed.
--- NOTE | 2023-12-03 10:07 | MM ---
Reason for Exam: Screening (asymptomatic). Last mammogram was performed 1 year(s) and 4 month(s) ago. Patient History: Menarche at age 10. First Full-Term at age 18. Postmenopausal. 11/04/2005, Benign Core Biopsy on the left side. Maternal aunt had breast cancer. Risk Values: Jessica 5 year model risk: 1.4%. NCI Lifetime model risk: 6.9%. Prior Study Comparison: 02/27/2016 Bilateral Screening Mammogram, [facility]. 06/27/2020 Bilateral Screening Mammogram, [facility]. 07/19/2022 Bilateral MG 3D screening mammo w/cad, [facility]. Tissue Density: The breasts are heterogeneously dense, which may obscure small masses. Findings: Analyzed By CAD. There is no suspicious group of microcalcifications or new suspicious mass in either breast. Stable scattered previously biopsied calcifications left breast. Overall Assessment: Benign, BI-RAD 2 Management: Screening Mammogram of both breasts in 1 year. . Patient should continue monthly self-breast exams. A clinical breast exam by your physician is recommended on an annual basis. This exam should not preclude additional follow-up of suspicious palpable abnormalities. Note on Jessica scores and lifetime risk: 1. A Jessica score greater than 3% is considered moderate risk. If this is the case, consider specialist referral to assess eligibility for a risk reducing agent. 2. If overall lifetime risk for the development of breast cancer is 20% or higher, the patient may qualify for future screening with alternating mammogram and breast MRI. Electronically signed and approved by: Mark Rodriguez M.D. Radiologis
== END ==
LOC: WWCWWP 15:52
PROVIDERS: ATTEND Obstetrics & Gynecology
DX: Z12.31 Encounter for screening mammogram for malignant neoplasm of breast (principal); R92.333 Mammographic heterogeneous density, bilateral breasts; R10.2 Pelvic and perineal pain; Z78.0 Asymptomatic menopausal state; Z87.42 Personal history of other diseases of the female genital tract; Z80.3 Family history of malignant neoplasm of breast
CPT/HCPCS: 77063; 77067

== ENCOUNTER 2024-10-06 15:49 | Emergency (ER) | payer MEDICARE, OTHER ==
[2024-10-06 16:22] VITALS: RESP 18; TEMP 97.7
--- NOTE | 2024-10-06 17:01 | ED ---
Abdominal Pain HPI - General Source: patient, RN notes reviewed Mode of arrival: ambulatory Limitations: no limitations <Soraya Rachel - Last Filed: 10/06/24 17:00> <Reinaldo Ardon - Last Filed: 10/06/24 23:47> - General Chief Complaint: Abdominal Pain Stated Complaint: R side pain Time Seen by Provider: 10/06/24 17:00 - History of Present Illness Initial Comments: Quick [id number] female presenting for right lower quadrant abdominal pain x 3 weeks. Describes a dull intermittent pain. States she has never had this pain before. Denies nausea, vomiting, diarrhea, constipation, urinary symptoms. She has a history of an appendectomy and cholecystectomy. (Soraya Rachel) Patient is a 59-year-old female who presents emergency department complaining of abdominal pain. Patient has been dealing with this pain for multiple weeks. Told she has fibroids but is unconvinced that this is the cause of her pain. Denies any nausea or vomiting or diarrhea. Denies constipation. Denies vaginal bleeding or discharge. Denies urinary complaints. Abdominal pain is in the right lower quadrant. Has a history of appendectomy and cholecystectomy. Has no other acute complaints at this time. Presents for further evaluation. Originally seen as a quick note. I evaluated the patient when she was placed in room 7. Pain does not radiate. Remains in the right lower quadrant. Worse w ith movements. (Reinaldo Ardon) - Related Data Home Medications Medication Instructions Recorded Confirmed oxyCODONE HCL/ACETAMINOPHEN 1 tab PO TID PRN 08/14/18 10/06/24 [Percocet 7.5-325 mg] metFORMIN HCL [Glucophage] 500 mg PO BID 08/22/21 10/06/24 Ibuprofen [Motrin] 800 mg PO BID PRN 10/06/24 10/06/24 Magnesium(Unknown Dose) 1 tab PO HS 10/06/24 10/06/24 Previous Rx's Medication Instructions Recorded Dicyclomine [Bentyl] 10 mg PO TID PRN 7 Days #21 capsule 10/06/24 Allergies Allergy/AdvReac Type Severity Reaction Status Date / Time No Known Allergies Allergy Verified 10/06/24 19:57 Review of Systems ROS Other: All systems not noted in ROS Statement are negative. <Soraya Rachel - Last Filed: 10/06/24 17:00> ROS Other: All systems not noted in ROS Statement are negative. <Reinaldo Ardon - Last Filed: 10/06/24 23:47> ROS Statement: Those systems with pertinent positive or pertinent negative responses have been documented in the HPI. Review of Systems: CONST: Denies fever EYES: Denies blurry vision ENT: Denies nasal congestion C/V: Denies Chest pain RESP: Denies shortness of breath GI: Endorses abdominal pain : Denies dysuria SKIN: Denies rash. MSK: Denies joint pain. NEURO: Denies headache (Reinaldo Ardon) Past Medical History Past Medical History: Chest Pain / Angina, Diabetes Mellitus, GERD/Reflux, Hyperlipidemia, Osteoarthritis (OA) Additional Past Medical History / Comment(s): restless leg syndrome, hx migraines, hx anemia, chronic neck problems. 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 History of Any Multi-Drug Resistant Organisms: None Reported Past Surgical History: Appendectomy, Cholecystectomy, Tubal Ligation Additional Past Surgical History / Comment(s): Colonoscopy 2012. Past Anesthesia/Blood Transfusion Reactions: No Reported Reaction Past Psychological History: Anxiety Smoking Status: Never smoker Past Alcohol Use History: None Reported Past Drug Use History: None Reported - Past Family History Father Family Medical History: Diabetes Mellitus Additional Family Medical History / Comment(s): HEART DISEASE Mother Family Medical History: Myocardial Infarction ([place]) Additional Family Medical History / Comment(s): FROM [place] AT AGE 45 Sister(s) Family Medical History: Myocardial Infarction ([place]) <Soraya Rachel - Last Filed: 10/06/24 17:00> General Exam Limitations: no limitations <Soraya Rachel - Last Filed: 10/06/24 17:00> <Reinaldo Ardon - Last Filed: 10/06/24 23:47> - General Exam Comments Initial Comments: Visual Physical Exam Vital signs reviewed General: Well-appearing, nontoxic, no acute distress. Head: Normocephalic, atraumatic Eyes: PERRLA, EOMI ENT: Airway patent Chest: Nonlabored breathing Skin: No visual rash, normal skin tone Neuro: Alert and oriented 3 Musculoskeletal: No gross abnormalities (Soraya Rachel) General: Appears in no acute distress. HEAD: Normal with no signs of head trauma. EYES: EOMI ENT: Hearing grossly intact, normal oropharynx. RESPIRATORY: Clear breath sounds bilaterally. No wheezes, rales, or rhonchi. C/V: Regular rate and rhythm. S1 and S2 auscultated, peripheral pulses 2+ and intact throughout ABD: Abdomen soft, nondistended. Mild tenderness to palpation in the right lower quadrant. No guarding or rebound tenderness. No peritoneal signs. No CVA tenderness to percussion. EXT: No obvious deformity SKIN: No rashes or lesions observed on exposed skin. NEURO: Alert and oriented x 4. (Reinaldo Ardon) Course Vital Signs 10/06/24 10/06/24 10/06/24 16:20 18:48 20:27 Temperature 97.7 F Pulse Rate 75 80 68 Respiratory 18 18 18 Rate Blood Pressure 124/84 126/85 122/81 O2 Sat by Pulse 96 97 100 Oximetry Medical Decision Making <Soraya Rachel - Last Filed: 10/06/24 17:00> - Lab Data Result diagrams: 10/06/24 18:34 10/06/24 18:34 <Reinaldo Ardon - Last Filed: 10/06/24 23:47> - Medical Decision Making I completed the quick note portion of this chart signed from Soraya Rachel PA-C (Soraya Rachel) Was pt. sent in by a medical professional or institution ([facility], COMMUNITY SERVICE WORKER, urgent care, hospital, or [facility]...) When possible be specific @ -No Did you speak to anyone other than the patient for history (EMS, parent, family, police, friend...)? What history was obtained from this source @ -No Did you review nursing and triage notes (agree or disagree)? Why? @ -I reviewed and agree with nursing and triage notes Were old charts reviewed (outside hosp., previous admission, EMS record, old EKG, old radiological studies, urgent care reports/EKG's, [facility] records)? Report findings @ -No old charts were reviewed Differential Diagnosis (chest pain, altered mental status, abdominal pain women, abdominal pain men, vaginal bleeding, weakness, fever, dyspnea, syncope, headache, dizziness, GI bleed, back pain, seizure, CVA, palpatations, mental health, musculoskeletal)? @ -Differential Abdominal Pain Women: Appendicitis, Cholecystitis, diverticulosis, ischemic bowel, pancreatitis, hepatitis, UTI, gastroenteritis, AAA, incarcerated hernia, bowel obstruction, constipation, inflammatory bowel, hepatitis, peptic ulcer disease, splenic infarction, perforated viscus, vulvitis, ovarian torsion, PID, kidney stone, placenta abruption, this is not meant to be an all-inclusive list EKG interpreted by me (3pts min.). @ -None done X-rays interpreted by me (1pt min.). @ -None done CT interpreted by me (1pt min.). @ -CT abdomen pelvis shows no obvious acute intra-abdominal process. Patient does have uterine fibroids present. U/S interpreted by me (1pt. min.). @ -None done What testing was considered but not performed or refused? (CT, X-rays, U/S, labs)? Why? @ -None What meds were considered but not given or refused? Why? @ -None Did you discuss the management of the patient with other professionals (professionals i.e. , PA, COMMUNITY SERVICE WORKER, lab, RT, psych nurse, manager social, flight director, teacher, chief accounting officer, egg caser)? Give summary @ -No Was smoking cessation discussed for >3mins.? @ -No Was critical care preformed (if so, how long)? @ -No Were there social determinants of health that impacted care today? How? (Homelessness, low income, unemployed, alcoholism, drug addiction, transportation, low edu. Level, literacy, decrease access to med. care, intermediate, rehab)? @ -No Was there de-escalation of care discussed even if they declined (Discuss DNR or withdrawal of care, Hospice)? DNR status @ -No What co-morbidities impacted this encounter? (DM, HTN, Smoking, COPD, CAD, Cancer, CVA, ARF, Chemo, Hep., AIDS, mental health diagnosis, sleep apnea, morbid obesity)? @ -None Was patient admitted / discharged? Hospital course, mention meds given and route, prescriptions, significant lab abnormalities, going to OR and other pertinent info. @ -Based on patient's presentation and physical exam, presents emergency department for abdominal pain for the last 3 weeks. Relatively unimpressive exam. Patient administered IV fluids, analgesia medications, Zofran, Toradol. She was in agreement this plan. We will obtain CT abdomen pelvis as well as abdominal laboratory studies. Laboratory studies returned within acceptable limits. CT shows fibroids but no other obvious intra-abdominal process. I discussed results with patient. She is feeling improved. Discussed that the uterine fibroids may be causing her pain. Official diagnosis is abdominal pain of unknown etiology with uterine fibroids. She expressed understanding. Recommend follow-up with her GENERAL INTERNIST AND PHYSICIAN LEADER which she was in agreement with. She will be discharged home with a starter pack of Tylenol 3 as well as a prescription for Bentyl. Follow-up with Dr. Castro as well as general surgery provided. She was in agreement this plan. I instructed the patient to follow up with their PCP in the next 1-3 days. I explained that the patient should return to the emergency department if they experience any worsening symptoms. Strict return precautions were discussed with the patient. The patient expressed understanding of these instructions. I answered all questions that the patient had. The patient was discharged home in good condition with their prescriptions and follow up information. Undiagnosed new problem with uncertain prognosis? @ -No Drug Therapy requiring intensive monitoring for toxicity (Heparin, Nitro, Insulin, Cardizem)? @ -No Were any procedures done? @ -No Diagnosis/symptom? @ -Abdominal pain of unknown etiology, uterine fibroid Acute, or Chronic, or Acute on Chronic? @ -Acute Uncomplicated (without systemic symptoms) or Complicated (systemic symptoms)? @ -Uncomplicated Side effects of treatment? @ -No Exacerbation, Progression, or Severe Exacerbation? @ -No Poses a threat to life or bodily function? How? (Chest pain, [place], [place], pneumonia, PE, COPD, DKA, ARF, appy, cholecystitis, CVA, Diverticulitis, Homicidal, Suicidal, threat to staff... and all critical care pts) @ -Unlikely at this time (Reinaldo Ardon) - Lab Data Lab Results 10/06/24 10/06/24 10/06/24 Range/Units 18:34 18:34 18:34 WBC 6.77 (4.50-10.00) 10*3/uL RBC 5.31 H (4.10-5.20) 10*6/uL Hgb 14.5 (12.0-15.0) g/dL Hct 43.8 (37.2-46.3) % MCV 82.5 (80.0-97.0) fL MCH 27.3 (27.0-32.0) pg MCHC 33.1 (32.0-37.0) g/dL Plt Count 276 (140-440) 10*3/uL MPV 10.1 (9.5-12.2) fL Immature Gran % (Auto) 0.3 % Neutrophils % 36.8 % Lymphocytes % 48.4 % Monocytes % 10.5 % Eosinophils % 3.1 % Basophils % 0.9 % Immature Gran # 0.02 (0.00-0.04) 10*3/uL Neutrophils # 2.49 (1.80-7.70) 10*3/uL Lymphocytes # 3.28 (0.90-5.00) 10*3/uL Monocytes # 0.71 (0.20-1.00) 10*3/uL Eosinophils # 0.21 (0.04-0.35) 10*3/uL Basophils # 0.06 (0.00-0.10) 10*3/uL Sodium 137 (137-145) mmol/L Potassium 4.2 (3.5-5.1) mmol/L Chloride 108 H (98-107) mmol/L Carbon Dioxide 21 L (22-30) mmol/L Anion Gap 8 mmol/L BUN 21 H (7-17) mg/dL Creatinine 0.80 (0.52-1.04) mg/dL Est GFR (CKD-EPI)AfAm >90 (>60 ml/min/1.73 sqM) Est GFR (CKD-EPI)NonAf 80 (>60 ml/min/1.73 sqM) Glucose 126 H (74-99) mg/dL Plasma Lactic Acid Ananth (0.7-2.0) mmol/L Calcium 9.2 (8.4-10.2) mg/dL Total Bilirubin 0.7 (0.2-1.3) mg/dL AST 20 (14-36) U/L ALT 19 (4-34) U/L Alkaline Phosphatase 43 (38-126) U/L Total Protein 6.4 (6.3-8.2) g/dL Albumin 4.0 (3.5-5.0) g/dL Lipase 143 (23-300) U/L Urine Color Yellow Urine Appearance Turbid H (Clear) Urine pH 5.0 (5.0-8.0) Ur Specific [place] 1.032 (1.001-1.035) Urine Protein Negative (Negative) Urine Glucose (UA) Trace H (Negative) Urine Ketones Trace H (Negative) Urine Blood Negative (Negative) Urine Nitrite Negative (Negative) Urine Bilirubin Negative (Negative) Urine Urobilinogen <2.0 (<2.0) mg/dL Ur Leukocyte Esterase Negative (Negative) Urine RBC 1 (0-5) /hpf Urine Bacteria Occasional H (None) /hpf Urine Mucus Occasional H (None) /hpf Urine Yeast (Budding) Many H (None) /hpf 10/06/24 Range/Units 18:34 WBC (4.50-10.00) 10*3/uL RBC (4.10-5.20) 10*6/uL Hgb (12.0-15.0) g/dL Hct (37.2-46.3) % MCV (80.0-97.0) fL MCH (27.0-32.0) pg MCHC (32.0-37.0) g/dL Plt Count (140-440) 10*3/uL MPV (9.5-12.2) fL Immature Gran % (Auto) % Neutrophils % % Lymphocytes % % Monocytes % % Eosinophils % % Basophils % % Immature Gran # (0.00-0.04) 10*3/uL Neutrophils # (1.80-7.70) 10*3/uL Lymphocytes # (0.90-5.00) 10*3/uL Monocytes # (0.20-1.00) 10*3/uL Eosinophils # (0.04-0.35) 10*3/uL Basophils # (0.00-0.10) 10*3/uL Sodium (137-145) mmol/L Potassium (3.5-5.1) mmol/L Chloride (98-107) mmol/L Carbon Dioxide (22-30) mmol/L Anion Gap mmol/L BUN (7-17) mg/dL Creatinine (0.52-1.04) mg/dL Est GFR (CKD-EPI)AfAm (>60 ml/min/1.73 sqM) Est GFR (CKD-EPI)NonAf (>60 ml/min/1.73 sqM) Glucose (74-99) mg/dL Plasma Lactic Acid Ananth 1.0 (0.7-2.0) mmol/L Calcium (8.4-10.2) mg/dL Total Bilirubin (0.2-1.3) mg/dL AST (14-36) U/L ALT (4-34) U/L Alkaline Phosphatase (38-126) U/L Total Protein (6.3-8.2) g/dL Albumin (3.5-5.0) g/dL Lipase (23-300) U/L Urine Color Urine Appearance (Clear) Urine pH (5.0-8.0) Ur Specific [place] (1.001-1.035) Urine Protein (Negative) Urine Glucose (UA) (Negative) Urine Ketones (Negative) Urine Blood (Negative) Urine Nitrite (Negative) Urine Bilirubin (Negative) Urine Urobilinogen (<2.0) mg/dL Ur Leukocyte Esterase (Negative) Urine RBC (0-5) /hpf Urine Bacteria (None) /hpf Urine Mucus (None) /hpf Urine Yeast (Budding) (None) /hpf Disposition <Soraya Rachel - Last Filed: 10/06/24 17:00> Is patient prescribed a controlled substance at d/c from ED?: No Time of Disposition: 20:16 <Reinaldo Ardon - Last Filed: 10/06/24 23:47> Clinical Impression: Abdominal pain of unknown etiology, Uterine fibroid Disposition: HOME SELF-CARE Condition: Good Instructions (If sedation given, give patient instructions): Abdominal Pain (ED) Prescriptions: Dicyclomine [Bentyl] 10 mg PO TID PRN 7 Days #21 capsule PRN Reason: Pain Referrals: None,Stated [Primary Care Provider] - 1-2 days Carolina Howe MD [STAFF PHYSICIAN] - 1-2 days Josh Jimenez MD [STAFF PHYSICIAN] - 1-2 days Forms: [facility] PCPs
[2024-10-06 18:40] LABS: Basophils # (A) 0.06 10*3/uL (0.00-0.10); Basophils % (A) 0.9 %; Eosinophils # (A) 0.21 10*3/uL (0.04-0.35); Eosinophils % (A) 3.1 %; HCT 43.8 % (37.2-46.3); HGB 14.5 g/dL (12.0-15.0); Lymphocytes # (A) 3.28 10*3/uL (0.90-5.00); Lymphocytes % (A) 48.4 %; MCH 27.3 pg (27.0-32.0); MCHC 33.1 g/dL (32.0-37.0); MCV 82.5 fL (80.0-97.0); Mean Platelet Volume 10.1 fL (9.5-12.2); Monocytes # (A) 0.71 10*3/uL (0.20-1.00); Monocytes % (A) 10.5 %; Neutrophils # (A) 2.49 10*3/uL (1.80-7.70); Neutrophils % (A) 36.8 %; Platelet Count 276 10*3/uL (140-440); RBC 5.31 10*6/uL (4.10-5.20); RDW 14.6 % (11.5-14.5); WBC 6.77 10*3/uL (4.50-10.00)
[2024-10-06] MEDS: SODIUM CHLORIDE 0.9% 1,000 ML IV ONE (18:50)
[2024-10-06 18:51] LABS: ALT 19 U/L (4-34); AST 20 U/L (14-36); African American GFR (CKD) >90 (>60 ml/min/1.73 sqM); Alkaline Phosphatase 43 U/L (38-126); Anion Gap 8 mmol/L; Appearance,Urine Turbid (Clear); Bacteria,Urine Occasional /hpf; Bilirubin,Urine Negative (Negative); Blood Urea Nitrogen 21 mg/dL (7-17); Blood,Urine Negative (Negative); Budding Yeast,Urine Many /hpf; Calcium 9.2 mg/dL (8.4-10.2); Carbon Dioxide 21 mmol/L (22-30); Chloride 108 mmol/L (98-107); Color,Urine Yellow; Glucose 126 mg/dL (74-99); Glucose,Urine (UA) Trace (Negative); Ketones,Urine Trace (Negative); Leukocyte Esterase,Urine Negative (Negative); Lipase 143 U/L (23-300); Mucus,Urine Occasional /hpf; Nitrite,Urine Negative (Negative); Non-African American GFR(CKD) 80 (>60 ml/min/1.73 sqM); Potassium 4.2 mmol/L (3.5-5.1); Protein,Urine Negative (Negative); RBC,Urine 1 /hpf (0-5); Sodium 137 mmol/L (137-145); Specific Gravity,Urine 1.032 (1.001-1.035); Total Bilirubin 0.7 mg/dL (0.2-1.3); Total Protein 6.4 g/dL (6.3-8.2); Urobilinogen,Urine <2.0 mg/dL (<2.0)
[2024-10-06] MEDS: ONDANSETRON 4 MG/2 ML VIAL IVP STA (18:51)
[2024-10-06] MEDS: KETOROLAC 15 MG/ML 1 ML VIAL IVP STA (18:51)
[2024-10-06] MEDS: MORPHINE SULFATE 4 MG/ML SYRINGE IVP STA (18:51)
--- NOTE | 2024-10-06 19:44 | CT ---
EXAMINATION TYPE: CT abdomen pelvis w con DATE OF EXAM: 10/06/2024 7:12 PM COMPARISON: 07/12/2022 CLINICAL INDICATION: Female, 59 years old with history of RLQ abd pain; RLQ abd pain. TECHNIQUE: Axial CT abdomen pelvis w con;Sagittal and coronal reformats were created on a separate w orkstation. Contrast used:100 ml mL of Isovue 300 with IV Contrast, (none if empty) Oral contrast used: without Oral Contrast (none if empty) CT DLP: 1270.1 mGycm, Automated exposure control for dose reduction was used. FINDINGS: LOWER CHEST: Unremarkable ABDOMEN LIVER: Unremarkable GALLBLADDER AND BILE DUCTS: The gallbladder is surgically absent. PANCREAS: Pancreatic divisum morphology to the main pancreatic duct. SPLEEN: Unremarkable. ADRENAL GLANDS: Unremarkable. KIDNEYS AND URETERS: No evidence of hydronephrosis or obstructing renal calculus. The ureters are unr emarkable. Right superior renal cortical cysts measuring up to 12 mm. No follow-up recommended. PELVIS BLADDER: No evidence for wall thickening or mass given limitations of exam. REPRODUCTIVE: Fibroid uterus noted with left fundal fibroid measuring up to 3.2 cm. ABDOMEN & PELVIS STOMACH AND BOWEL: No evidence of bowel obstruction. Nonvisualization of the appendix possibly surgic ally absent. Prominence of the terminal ileum up to 2.8 cm in diameter which is within normal limits. PERITONEUM/RETROPERITONEUM: No evidence of pneumoperitoneum or free fluid. VASCULATURE: Mild atherosclerotic calcifications are present throughout the abdominal aorta and its b ranches. No evidence of aortic aneurysm. MUSCULOSKELETAL: No acute osseous abnormalities. Mild disc degeneration changes are present throughou t the thoracolumbar spine. LYMPH NODES: No gross evidence for lymphadenopathy. SOFT TISSUE/ABDOMINAL WALL: Unremarkable IMPRESSION: 1. No evidence for acute right lower quadrant process. The appendix is not visualized may be surgica lly absent. 2. Gallbladder surgically absent. 3. No evidence for obstructive uropathy or renal calculus. 4. Fibroid uterus. 5. Pancreatic divisum [facility], , 10/06/2024 7:41 PM
[2024-10-06] MEDS: ACET/COD 300 MG/30 MG STARTER PACK 6 TAB BTL PO STA (20:24)
[2024-10-06 20:28] VITALS: BP 122/81; PULSE 68
== END 2024-10-06 20:34 | disposition home or self-care (01) ==
LOC: EC 15:49
DX: D25.9 Leiomyoma of uterus, unspecified (principal)
CPT/HCPCS: 36415; 80053; 83605; 83690; 85025; 81001; 74177; 99284; 96374; 96375 ×2; 96361; J2270; J2405; J1885; Q9967